=== PATIENT | female | born 1965 | race Caucasian/White ===

== ENCOUNTER → 2018-03-12 09:23 | Outpatient (CLI) | payer OTHER, SELFPAY ==
[2018-03-12 10:48] LABS: Cholesterol 212 mg/dL (140-199); Glucose 86 mg/dL (70-100); HDL Cholesterol 70 mg/dL (40-60); LDL Cholesterol Calculated 128 mg/dL (<100); Triglycerides 68 mg/dL (35-150)
[2018-03-12 12:39] LABS: Thyroid Stimulating Hormone 2.58 uIU/mL (0.47-4.68)
== END ==
PROVIDERS: PCP Family Medicine; Visit Provider Family Medicine
DX: E03.9 Hypothyroidism, unspecified (principal); Z13.1 Encounter for screening for diabetes mellitus; Z13.220 Encounter for screening for lipoid disorders
CPT/HCPCS: 36415; 80061; 82947; 84443

== ENCOUNTER → 2018-05-30 15:46 | Outpatient (CLI) | payer OTHER, SELFPAY ==
--- NOTE | 2018-05-30 15:47 | DI.MG.S_ITS ---
BILATERAL DIGITAL SCREENING MAMMOGRAM 3D/2D WITH CAD: 05/30/2018 CLINICAL: Routine screening. Comparison is made to exams dated: 07/18/2012 mammogram, 04/28/2010 mammogram, and 09/07/2007 mammogram - [facility] [place]. The tissue of both breasts is heterogeneously dense. This may lower the sensitivity of mammography. Current study was also evaluated with a Computer Aided Detection (CAD) system. There are a grouped calcifications in the left breast at 1 o'clock posterior depth. There also is a focal asymmetry in the left breast at 10 o'clock posterior depth. No other significant masses, calcifications, or other findings are seen in either breast. IMPRESSION: INCOMPLETE: NEEDS ADDITIONAL IMAGING EVALUATION The grouped calcifications in the left breast at 1 o'clock posterior depth are indeterminate. Spot magnification views are recommended. The focal asymmetry in the left breast at 10 o'clock posterior depth is indeterminate. Additional views with possible ultrasound are recommended. This exam was interpreted at Station ID: [id number]. NOTE: For mammograms, a report in lay terms will be sent to the patient. Approximately 15% of breast malignancies will not be visualized mammographically. In the management of a palpable breast mass, a negative mammogram must not discourage biopsy of a clinically suspicious lesion. Electronically Signed By: Alejandra brooke/:05/30/2018 16:47:58 letter sent: Additional Imaging Needed ACR BI-RADS Category 0: Incomplete 3340F
== END ==
PROVIDERS: PCP Family Medicine; Visit Provider Family Medicine
DX: Z12.31 Encounter for screening mammogram for malignant neoplasm of breast (principal)
CPT/HCPCS: 77063; 77067

== ENCOUNTER → 2018-06-14 14:36 | Outpatient (CLI) | payer OTHER, SELFPAY ==
--- NOTE | 2018-06-14 14:38 | DI.MG.S_ITS ---
UNILATERAL LEFT DIGITAL DIAGNOSTIC MAMMOGRAM 3D/2D WITH ADDITIONAL VIEWS: 06/14/2018 CLINICAL: Additional evaluation requested from prior study. Comparison is made to exams dated: 05/30/2018 mammogram - [facility], 07/18/2012 mammogram, and 04/28/2010 mammogram - [facility]. The tissue of left breast is heterogeneously dense. This may lower the sensitivity of mammography. There are a grouped calcifications in the left breast at 1 o'clock posterior depth. These are less prominent and their morphology is not well evaluated on the current study. There also is a 9 mm asymmetry with an indistinct and microlobulated margin in the left breast middle depth medial region seen on the craniocaudal view only. No other significant masses or calcifications are seen in the breast. IMPRESSION: INCOMPLETE: NEEDS ADDITIONAL IMAGING EVALUATION The grouped calcifications in the left breast at 1 o'clock posterior depth remain indeterminate. The 9 mm asymmetry in the left breast middle depth medial region seen on the craniocaudal view only is indeterminate. Ultrasound for the medial asymmetry is recommended and was subsequently performed. This exam was interpreted at Station ID: [id number]. NOTE: For mammograms, a report in lay terms will be sent to the patient. Approximately 15% of breast malignancies will not be visualized mammographically. In the management of a palpable breast mass, a negative mammogram must not discourage biopsy of a clinically suspicious lesion. Electronically Signed By: Marylin garcia/:06/14/2018 17:29:29 ACR BI-RADS Category 0: Incomplete 3340F
--- NOTE | 2018-06-14 14:38 | DI.US.S_ITS ---
LIMITED ULTRASOUND OF LEFT BREAST: 06/14/2018 CLINICAL: Patient returns today to evaluate a density in the left breast. Comparison is made to exams dated: 06/14/2018 mammogram, 05/30/2018 mammogram - [facility], 07/18/2012 mammogram, 04/28/2010 mammogram, and 09/07/2007 mammogram - [facility]. Color flow and real-time ultrasound of the left breast 7-11 o'clock region were performed. Cartwright scale images of the real-time examination were reviewed. There are multiple 3 mm round complicated cysts in the left breast superior medial quadrant anterior depth. Their correlation to the mammographic finding is doubtful. No sonographic correlate to the medial left breast finding on mammogram. IMPRESSION: PROBABLY BENIGN The complicated cysts in the left breast are probably benign and not likely to correspond to the mammographic area of interest. No sonographic correlate was found. A follow-up left mammogram and an ultrasound in 6 months is recommended to demonstrate stability of the asymmetry in the medial left breast, and the faint calcifications in the 1 o'clock position of the left breast. Findings and recommendations were conveyed to the patient. This exam was interpreted at Station ID: [id number]. Electronically Signed By: Marylin garcia/:06/14/2018 17:36:15 letter sent: Followup Recommended Ultrasound BI-RADS: 3 Probably benign
== END ==
PROVIDERS: PCP Family Medicine; Visit Provider Family Medicine
DX: R92.8 Other abnormal and inconclusive findings on diagnostic imaging of breast (principal); R92.1 Mammographic calcification found on diagnostic imaging of breast; N64.89 Other specified disorders of breast; N60.02 Solitary cyst of left breast
CPT/HCPCS: 76642; 77065; G0279

== ENCOUNTER → 2018-12-13 14:40 | Outpatient (CLI) | payer OTHER, SELFPAY ==
--- NOTE | 2018-12-13 14:41 | DI.MG.S_ITS ---
UNILATERAL LEFT DIGITAL DIAGNOSTIC MAMMOGRAM 3D/2D SHORT-TERM FOLLOW-UP: 12/13/2018 CLINICAL: Patient returns for a 6 month follow up of the left breast. Comparison is made to exams dated: 06/14/2018 mammogram, 05/30/2018 mammogram - [facility], and 07/18/2012 [place] [facility] [place] The tissue of left breast is heterogeneously dense. This may lower the sensitivity of mammography. Previously identified grouped calcifications in the left breast at 1 o'clock posterior depth seen on comparison mammograms of 05/30/18 and 06/14/18 remain stable. Previously identified focal asymmetry of the medial left breast (previously described as being at 10 o'clock posterior depth on comparison screening mammograms of 05/30/18 and within the left breast middle depth medial region on comparison diagnostic mammograms of 06/14/18) remains stable. IMPRESSION: INCOMPLETE: NEEDS ADDITIONAL IMAGING EVALUATION Previously identified grouped calcifications in the left breast at 1 o'clock posterior depth seen on comparison mammograms of 05/30/18 and 06/14/18 remain stable. A targeted ultrasound is recommended for further evaluation, and will be performed immediately following this exam. Previously identified focal asymmetry of the medial left breast (previously described as being at 10 o'clock posterior depth on comparison screening mammograms of 05/30/18 and within the left breast middle depth medial region on comparison diagnostic mammograms of 06/14/18) remains stable. A targeted ultrasound is recommended for further evaluation, and will be performed immediately following this exam. This exam was interpreted at Station ID: [id number]. NOTE: For mammograms, a report in lay terms will be sent to the patient. Approximately 15% of breast malignancies will not be visualized mammographically. In the management of a palpable breast mass, a negative mammogram must not discourage biopsy of a clinically suspicious lesion. Electronically Signed By: Daniel Hoffmann M.D. ecl/:12/13/2018 15:21:53 ACR BI-RADS Category 0: Incomplete 3340F
--- NOTE | 2018-12-13 14:41 | DI.US.S_ITS ---
LIMITED ULTRASOUND OF LEFT BREAST: 12/13/2018 CLINICAL: 6 month follow-up of the left breast. Comparison is made to exams dated: 12/13/2018 mammogram, 06/14/2018 ultrasound, 06/14/2018 mammogram, 05/30/2018 mammogram - [facility], 07/18/2012 mammogram, and 04/28/2010 mammogram - [facility] [place]. Color flow and real-time ultrasound of the left breast 8-10 o'clock region were performed. Cartwright scale images of the real-time examination were reviewed. There is a 0.3 x 0.3 x 0.3 cm oval circumscribed hypoechoic cyst with low level internal echogenic debris, posterior acoustic enhancement, and no vascularity on Doppler ultrasound in the left breast at 9:00 position 3 cm from the nipple. This previously measured 0.3 x 0.3 x 0.3 cm on 06/14/18. There is a closely adjacent 0.3 x 0.3 x 0.4 cm oval circumscribed hypoechoic cyst with low level internal echogenic debris, posterior acoustic enhancement, and no vascularity on Doppler ultrasound in the left breast 9:00 position 3 cm from nipple. This previously measured 0.4 x 0.4 x 0.4 cm on 06/14/18. No other masses or abnormalities are identified within the medial left breast from 8:00 through 10:00 positions. IMPRESSION: PROBABLY BENIGN Stable 0.3-0.4 cm complicated cysts in the medial left breast at 9:00 position 3 cm from the nipple when compared with prior exam of 06/14/18. These are again unlikely to correlate with the asymmetry seen on comparison mammography. A follow-up left mammogram and possible left ultrasound in 6 months is recommended to demonstrate stability; patient will also be due for right mammography at that time. The patient is advised to monitor her breasts and to return sooner for re-evaluation should she feel anything grow or change. This exam was interpreted at Station ID: [id number]. Electronically Signed By: Daniel Hoffmann M.D. ecl/:12/13/2018 16:06:30 letter sent: Followup Recommended Ultrasound BI-RADS: 3 Probably benign
== END ==
PROVIDERS: PCP Family Medicine; Visit Provider Family Medicine
DX: R92.8 Other abnormal and inconclusive findings on diagnostic imaging of breast (principal); R92.1 Mammographic calcification found on diagnostic imaging of breast; N64.89 Other specified disorders of breast; N60.02 Solitary cyst of left breast
CPT/HCPCS: 76642; 77065; G0279

== ENCOUNTER → 2019-11-26 12:31 | Outpatient (CLI) | payer OTHER, SELFPAY ==
--- NOTE | 2019-11-26 12:32 | DI.MG.S_ITS ---
BILATERAL DIGITAL DIAGNOSTIC MAMMOGRAM 3D/2D: 11/26/2019 CLINICAL: Late short term follow up, due bilaterally. Comparison is made to exams dated: 12/13/2018 mammogram, 06/14/2018 mammogram, 05/30/2018 mammogram - [facility], and [place] [facility] [place] [place] The tissue of both breasts is heterogeneously dense. This may lower the sensitivity of mammography. There is a stable focal asymmetry in the left breast at 10 o'clock posterior depth. There also are stable grouped calcifications in the left breast at 3 o'clock posterior depth. No other significant masses, calcifications, or other findings are seen in either breast. IMPRESSION: INCOMPLETE: NEEDS ADDITIONAL IMAGING EVALUATION The stable focal asymmetry in the left breast at 10 o'clock posterior depth is indeterminate. A targeted ultrasound of the left breast is recommended and will be performed immediately following this exam. The stable grouped calcifications in the left breast at 3 o'clock posterior depth are probably benign. 6 month follow up recommended. This exam was interpreted at Station ID: [id number]. NOTE: For mammograms, a report in lay terms will be sent to the patient. Approximately 15% of breast malignancies will not be visualized mammographically. In the management of a palpable breast mass, a negative mammogram must not discourage biopsy of a clinically suspicious lesion. Electronically Signed By: Alejandra Petty M.D. lk/:11/26/2019 14:19:56 letter sent: Additional Imaging Needed ACR BI-RADS Category 0: Incomplete 3340F
--- NOTE | 2019-11-26 12:32 | DI.US.S_ITS ---
ULTRASOUND OF LEFT BREAST: 11/26/2019 CLINICAL: 6 month follow-up of cysts. Comparison is made to exams dated: 11/26/2019 mammogram, 12/13/2018 ultrasound, 12/13/2018 mammogram, 06/14/2018 ultrasound, 06/14/2018 mammogram, and 05/30/2018 mammogram - [facility]. Ultrasound of the left breast was performed on the area of interest. Cartwright scale images of the real-time examination were reviewed. There is a stable cluster of round complicated cysts in the left breast at 9 o'clock anterior depth. This cluster of round complicated cysts is hypoechoic. IMPRESSION: PROBABLY BENIGN The stable cluster of round complicated cysts in the left breast is consistent with complicated cysts and is probably benign. A follow-up mammogram and an ultrasound in 6 months is recommended to demonstrate stability of these cysts and the stable cluster of calcifications. This exam was interpreted at Station ID: [id number]. Electronically Signed By: Alejandra brooke/:11/26/2019 14:40:46 letter sent: Followup Recommended Ultrasound BI-RADS: 3 Probably benign
== END ==
PROVIDERS: PCP Family Medicine; Referring Provider Family Medicine; Visit Provider Family Medicine
DX: R92.8 Other abnormal and inconclusive findings on diagnostic imaging of breast (principal); R92.1 Mammographic calcification found on diagnostic imaging of breast; N60.01 Solitary cyst of right breast
CPT/HCPCS: 76642; 77066; G0279

== ENCOUNTER → 2020-03-18 08:47 | Outpatient (CLI) | payer OTHER, SELFPAY ==
[2020-03-18 09:33] LABS: Add Manual Diff / Slide Review NO; Basophils Absolute Auto 0 /uL (0-100); Eosinophils Absolute Auto 100 /uL (0-450); Eosinophils Percent Auto 1.4 % (2-4); Hematocrit 38.2 % (36-46); Hemoglobin 12.8 g/dL (12.0-16.0); Lymphocytes Absolute Auto 1300 /uL (1100-4500); Lymphocytes Percent Auto 35.2 % (25-40); Mean Corpuscular HGB Conc 33.6 % (30-36); Mean Corpuscular Hemoglobin 31.1 PG (26-34); Mean Corpuscular Volume 92.4 fL (80-100); Monocytes Absolute Auto 300 /uL (0-900); Monocytes Percent Auto 8.1 % (3-14); Neutrophils Absolute Auto 2000 /uL (1500-7000); Neutrophils Percent Auto 54.3 % (50-75); Platelet Count 225 X10^3/uL (150-400); Red Blood Cell Count 4.13 X10^6/uL (4.0-5.2); Red Cell Distribution Width 12.9 % (11.6-14.8); White Blood Cell Count 3.7 X10^3/uL (4.5-11.0)
[2020-03-18 09:47] LABS: Alanine Aminotransferase 26 IU/L (<35); Albumin 4.4 g/dL (3.5-5.0); Albumin Globulin Ratio 1.4 (1.0-2.8); Alkaline Phosphatase 75 U/L (38-126); Aspartate Aminotransferase 35 IU/L (14-36); BUN Creatinine Ratio 19.2 (6-22); Bilirubin Total 0.6 mg/dL (0.2-1.3); Blood Urea Nitrogen 15 mg/dL (7-17); Calcium 9.4 mg/dL (8.4-10.2); Carbon Dioxide 31 mmol/L (22-32); Chloride 106 mmol/L (98-107); Cholesterol 224 mg/dL (140-199); Estimated Glomerular Filt Rate > 60.0 mL/min (>60); Globulin 3.1 g/dL (1.7-4.1); Glucose 91 mg/dL (70-100); HDL Cholesterol 67 mg/dL (40-60); HEMOLYSIS < 15 (0-50); LDL Cholesterol Calculated 148 mg/dL (<100); Potassium 4.5 mmol/L (3.4-5.1); Sodium 139 mmol/L (137-145); Total Protein 7.5 g/dL (6.3-8.2); Triglycerides 44 mg/dL (35-150)
[2020-03-18 10:27] LABS: Thyroid Stimulating Hormone 2.83 uIU/mL (0.47-4.68)
== END ==
PROVIDERS: PCP Family Medicine; Referring Provider Family Medicine; Visit Provider Family Medicine
DX: E03.9 Hypothyroidism, unspecified (principal)
CPT/HCPCS: 36415; 80053; 80061; 84443; 85025

== ENCOUNTER → 2020-03-27 12:08 | Outpatient (CLI) | payer OTHER, SELFPAY ==
--- NOTE | 2020-03-27 12:09 | DI.RAD.S_ITS ---
PROCEDURE: XR ANKLE LT MIN 3V INDICATIONS: bilateral ankle pain TECHNIQUE: 3 views of the ankle were acquired. COMPARISON: None. FINDINGS: Bones: No fractures or dislocations. Ankle mortise is normally aligned. No suspicious bony lesions. Small plantar calcaneal bone spur is seen. Soft tissues: No tibiotalar joint effusion. Achilles tendon appears normal. No calcifications in the Achilles tendon. IMPRESSION: 1. No acute abnormality of the left ankle. 2. Small calcaneal plantar bone spur. Dictated by: Angel Mullins M.D. on 03/27/2020 at 12:47 Approved by: Angel Mullins M.D. on 03/27/2020 at 12:50
--- NOTE | 2020-03-27 12:09 | DI.RAD.S_ITS ---
PROCEDURE: XR ANKLE RT MIN 3V INDICATIONS: bilateral ankle pain TECHNIQUE: 3 views of the ankle were acquired. COMPARISON: None. FINDINGS: Bones: No fractures or dislocations. Ankle mortise is normally aligned. No suspicious bony lesions. Soft tissues: No tibiotalar joint effusion. Achilles tendon appears normal. IMPRESSION: No acute abnormality of the right ankle. Dictated by: Angel Mullins M.D. on 03/27/2020 at 12:50 Approved by: Angel Mullins M.D. on 03/27/2020 at 12:51
== END ==
PROVIDERS: PCP Family Medicine; Referring Provider Family Medicine; Visit Provider Family Medicine
DX: M25.571 Pain in right ankle and joints of right foot (principal); M25.572 Pain in left ankle and joints of left foot; M77.32 Calcaneal spur, left foot
CPT/HCPCS: 73610

== ENCOUNTER → 2020-04-02 14:10 | Outpatient (CLI) | payer OTHER, SELFPAY ==
[2020-04-03 14:45] LABS: Fecal Immunochemical Test Negative (Negative)
== END ==
PROVIDERS: PCP Family Medicine; Referring Provider Family Medicine; Visit Provider Family Medicine
DX: M25.571 Pain in right ankle and joints of right foot (principal); M25.572 Pain in left ankle and joints of left foot; Z12.11 Encounter for screening for malignant neoplasm of colon
CPT/HCPCS: 82274

== ENCOUNTER → 2020-04-29 12:46 | Outpatient (CLI) | payer OTHER, SELFPAY ==
--- NOTE | 2020-04-29 12:47 | DI.MG.S_ITS ---
UNILATERAL LEFT DIGITAL DIAGNOSTIC MAMMOGRAM 3D/2D: 04/29/2020 CLINICAL: Short folow up. Comparison is made to exams dated: 11/26/2019 mammogram, 12/13/2018 mammogram, 06/14/2018 mammogram, 05/30/2018 mammogram - [facility], and 07/18/2012 mammogram - [facility]. The tissue of left breast is heterogeneously dense. This may lower the sensitivity of mammography. Redemonstration of previously described focal asymmetry in the left breast at 10 o'clock posterior depth. This is less prominent and decreased in size. There also are grouped calcifications in the left breast at 4 o'clock posterior depth. These are less prominent. No other significant masses or calcifications are seen in the breast. IMPRESSION: INCOMPLETE: NEEDS ADDITIONAL IMAGING EVALUATION The focal asymmetry in the left breast at 10 o'clock posterior depth is indeterminate. A targeted ultrasound of the left breast is recommended and will be performed immediately following this exam. The grouped calcifications in the left breast at 4 o'clock posterior depth are probably benign. This exam was interpreted at Station ID: [id number]. NOTE: For mammograms, a report in lay terms will be sent to the patient. Approximately 15% of breast malignancies will not be visualized mammographically. In the management of a palpable breast mass, a negative mammogram must not discourage biopsy of a clinically suspicious lesion. Electronically Signed By: Liu Bennett M.D. aty/:04/29/2020 13:29:53 ACR BI-RADS Category 0: Incomplete 3340F
--- NOTE | 2020-04-29 12:47 | DI.US.S_ITS ---
ULTRASOUND OF LEFT BREAST: 04/29/2020 CLINICAL: Patient returns today to evaluate focal asymmetries in the left breast. Comparison is made to exams dated: 04/29/2020 mammogram, 11/26/2019 ultrasound, 11/26/2019 mammogram, 12/13/2018 ultrasound, 12/13/2018 mammogram, and 06/14/2018 [facility]. Color flow and real-time ultrasound of the left breast were performed. Cartwright scale images of the real-time examination were reviewed. There is a stable cluster of round complicated cysts in the left breast at 9 o'clock anterior depth. This cluster of round complicated cysts is hypoechoic. One measures up to 0.3 cm in size and the second measures up to 0.4 cm in size. IMPRESSION: BENIGN There is no sonographic evidence of malignancy. The stable cluster of round complicated cysts in the left breast have remained stable for approximately two years and are consistent with a benign process. Return to annual mammogram screening schedule is recommended which is due in November 2020. Findings and recommendations were conveyed to the patient during today's evaluation. This exam was interpreted at Station ID: [id number]. Electronically Signed By: Liu Bennett M.D. aty/:04/29/2020 14:29:01 letter sent: Normal Exam Ultrasound BI-RADS: 2 Benign
== END ==
PROVIDERS: PCP Family Medicine; Referring Provider Family Medicine; Visit Provider Family Medicine
DX: R92.8 Other abnormal and inconclusive findings on diagnostic imaging of breast (principal); R92.1 Mammographic calcification found on diagnostic imaging of breast
CPT/HCPCS: 76642; 77065; G0279

== ENCOUNTER 2020-09-08 09:45 | Outpatient (RCR) | payer OTHER, SELFPAY ==
--- NOTE | 2020-05-08 15:50 | PT.OIE ---
Current Diagnoses Pain in unspecified ankle and joints of unspecified foot (05/08/20) Past Medical History (Last Updated 04/17/18 @ 21:09 by Mely Byers) Foot pain (~2016) Hypothyroidism (~1995) Past Surgical History (Last Updated 04/17/18 @ 21:09 by Mely Byers) Anesthesia Ovarian cyst (~1992) Visit Care Team Role Provider Type Ellen Webb MD Attending Provider Physician Primary Care Provider Referring Provider Specialty: [facility] Address: [address] [place] [address], [facility] Email: [email or web address] Physical Therapy Initial Evaluation PT-OP-A Visit Information Start: 05/08/20 12:06 Freq: Status: Active Protocol: Document 05/08/20 12:06 (Rec: 05/08/20 12:34 [email or web address]) Out-Patient Physical Therapy Visit Information Visit Information Visit Type Initial Evaluation Visit Start Time 11:15 Visit Stop Time 12:00 Total Visit Minutes 45 Visit Number 02/24 Number of FLORAL CLERK Visits 0 Evaluation Information Evaluation Date 05/08/20 Precautions Precautions hypothyroidism PT-OP-B Current Condition Start: 05/08/20 12:06 Freq: Status: Active Protocol: Document 05/08/20 12:06 (Rec: 05/08/20 12:34 [email or web address]) Current Condition History of Current Condition Onset Date 4 years ago Current Complaints B heel pain, ankle stiffness History of Current Condition Senia is a 54 year old woman with bialteral heel pain 6/10 and ankle stiffness. For the past 4 years, she has had bilateral ankle pain that has been getting worse. She notices the pain the most when she wakes up in the morning, after staying in one position for too long and walking down hill; better with stretches but only with temporary reliefs. Shes describes the pain as shooting from the Achilles tendon. Pain has waken her up every night. She denies lower extremity weakness, numbness. She is a very active woman and works out almost daily but notices she can only do 60% of what she used to do. Her current routine inlcudes : 3 miles walk/day and 30 mins MELI workout 4 times a week but she cannot hike at this point d/t significant heel pain. Prior Treatments and Tests X-ray on B ankles R= No fractures or dislocations. Ankle mortise is normally aligned. No suspicious bony lesions. L= L No fractures or dislocations. Ankle mortise is normally aligned. No suspicious bony lesions. Small plantar calcaneal bone spur is seen. Treatment Goals Patient/Caregiver Goals 1. to be able to walk without heel pain 2. to improve her ankle stiffness. PT-OP-C Subjective Start: 05/08/20 12:06 Freq: Status: Active Protocol: Document 05/08/20 12:06 HH (Rec: 05/08/20 12:34 [email or web address]) Patient Questionnaires Foot & Ankle Ability Measure- ADL and Sports FAAM-ADL Score 91 FAAM-Sport Score 27 FAAM-Sport Impairment 1 to 19% Impaired (Score 25-31 ) Lower Extremity Functional Scale LEFS Score 77 LEFS Impairment 1 to 19% Impaired (Score 63-79 ) PT-OP-D Balance Start: 05/08/20 12:06 Freq: Status: Active Protocol: Document 05/08/20 12:06 HH (Rec: 05/08/20 12:34 [email or web address]) Balance Tests Single Limb Standing Single Limb- Right >60 Single Limb- Left >60 PT-OP-F Manual Assessment Start: 05/08/20 12:06 Freq: Status: Active Protocol: Document 05/08/20 12:06 HH (Rec: 05/08/20 12:34 [email or web address]) Manual Assessments Soft Tissue Assessment Soft Tissue Mobility Assessment significant tenderness and stiftness to pressure at B achilles tendons significant calluses noted at B heels Joint Mobility Assessment Joint Mobility Assessment decreased mid foot pronation mobility and calcaneal inversion and eversion mobility PT-OP-G Mobility & Gait Start: 05/08/20 12:06 Freq: Status: Active Protocol: Document 05/08/20 12:06 HH (Rec: 05/08/20 12:34 [email or web address]) OP Gait Assessment Comments Gait Comments pt walked with a hard heel strike bilaterally during initial contact she also has dec push off through forefoot at preswing. PT-OP-J Posture/Palpation/Skin Start: 05/08/20 12:06 Freq: Status: Active Protocol: Document 05/08/20 12:06 HH (Rec: 05/08/20 12:34 [email or web address]) Posture Evaluation Position Standing Evaluation View Anterior Ankle/Foot Posture (L) Plantarflexed,(R) Plantarflexed Foot Arch (L) High Arch,(R) High Arch Toe Posture (L) Clawed Toes,(R) Clawed Toes PT-OP-K Range of Motion Start: 05/08/20 12:06 Freq: Status: Active Protocol: Document 05/08/20 12:06 (Rec: 05/08/20 12:34 [email or web address]) Ankle and Foot Goniometric Range of Motion Ankle and Foot Right Active Ankle/Foot ROM WFL No Testing Position Supine Dorsiflexion with Knee Flexed 8 Dorsiflexion with Knee Extended 5 Plantarflexion 72 Inversion 34 Eversion 22 Left Active Ankle/Foot ROM WFL No Testing Position Supine Dorsiflexion with Knee Flexed 12 Dorsiflexion with Knee Extended 3 Plantarflexion 62 Inversion 30 Eversion 24 Ankle and Foot ROM Limitations ROM Limitations Soft Tissue Tightness Toe Range of Motion Toe Right Great Toe Toe ROM WFL No MTP Flexion Active (degrees) 40 MTP Extension Active (degrees) 20 Left Great Toe Toe ROM WFL No MTP Flexion Active (degrees) 45 MTP Extension Active (degrees) 18 Toes ROM Limitations Toe ROM Limitations Soft Tissue Tightness PT-OP-M Strength Start: 05/08/20 12:06 Freq: Status: Active Protocol: Document 05/08/20 12:06 (Rec: 05/08/20 12:34 [email or web address]) Ankle/Foot Strength Ankle and Foot Manual Muscle Testing Right Dorsiflexion (L4) 5 Normal Plantarflexion (S1) 5 Normal Inversion 5 Normal Eversion (S1) 5 Normal Comments single calf raise = 33 times without pain Left Dorsiflexion (L4) 5 Normal Plantarflexion (S1) 5 Normal Inversion 5 Normal Eversion (S1) 5 Normal Comments single calf raise = 33 times without pain PT-OP-T Assessment and Plan Start: 05/08/20 12:06 Freq: Status: Active Protocol: Document 05/08/20 12:06 (Rec: 05/08/20 12:34 [email or web address]) Physical Therapy Assessment Rehab Potential Rehabilitation Potential Excellent Evaluation Complexity Number of Personal Factors/Comorbidities 1-2 Number of Body Systems Impaired 1-2 Clinical Presentation at Evaluation Stable Impairments Impairments Activity Tolerance,Functional Activities,Functional Mobility ,Gait,Pain,Posture,ROM,Soft Tissue Mobility Goals hiking Impairment unable to hike d/t heel pain Usp Goal (LTG) pt will be able to hike again without increase in heel pain LTG Duration 8 weeks gait Impairment pt has poor gait mechanics Manager Automotive Goal (LTG) pt will be able to walk with increased forefoot push off and decreased heel strike to improve her stride length and gait mechanics. ROM Impairment pt has very lmited ankle and toe mobility Short Term Goal (STG) pt will show improved DF by 5 degrees and big toe extension by 10 degrees to improve her gait mechanics STG Duration 4 weeks Manager Automotive Goal (LTG) pt will show improved DF by 10 degrees and big toe extension by 20 degrees to improve her gait mechanics LTG Duration 8 weeks heel pain Impairment B heel pain =6/10 Short Term Goal (STG) Pt will have no more than 4/10 heel pain in the morning and after sitting for a long period of time. STG Duration 4 weeks Manager Automotive Goal (LTG) Pt will have no more than 2/10 heel pain in the morning and after sitting for a long period of time. LTG Duration 8 weeks Assessment Summary Assessment Senia is a 54 yo healthy and active female here for her chronic B heel pain and ankle stiffness. Upon assessment, pt presents with WFL single leg balance and ankle strength. However, She presents B high arch foot with very limited ankle DF and big toe extension whose gait has excessive heel strike and decreased forefoot pushed off during preswing. This excessively increase the mechanical loading at her achilles tendon. I believe pt will benefit from skilled therapy to improve her overall ankle and toes mobility which reduce mechanical stress at both achilles tendon by correcting her gait mechanics. Physical Therapy Plan Frequency and Duration Frequency of Treatment 2x/x2wk then 1x 6 wk Duration of Treatment 8 weeks Plan of Care Start Date 05/08/20 Plan of Care End Date 07/07/20 Therapeutic Interventions Therapeutic Interventions Balance Training,Gait Training ,Home Exercise Program,Joint Mobilizations,Manual Therapy, Neuromuscular Re-education, Orthotic/Prosthetic Management ,Patient/Caregiver Education, Self-Care/Home Management,Soft Tissue Mobilization,Taping, Therapeutic Activities, Therapeutic Exercises Modalities Cold Pack/Ice Massage,Electric Stimulation,Hot Packs, Infrared Therapy,Ultrasound Next Visit Focus/Plan Next Note Type Treatment Note Next Visit Plan STM on achilles calf stretch toe stretch towel scrunch foot pronation gait training toe push off
--- NOTE | 2020-05-08 15:50 | PT.OPPOC ---
Physical, Occupational & Speech Therapy At [facility] Current Diagnoses Pain in unspecified ankle and joints of unspecified foot (05/08/20) Visit Care Team Role Provider Type Ellen Webb MD Attending Provider Physician Primary Care Provider Referring Provider Specialty: Family Practice Address: [address] [place] [address], [place], [address] Email: [email or web address] Plan Of Care PT-OP-T Assessment and Plan Start: 05/08/20 12:06 Freq: Status: Active Protocol: Document 05/08/20 12:06 (Rec: 05/08/20 12:34 [email or web address]) Physical Therapy Assessment Rehab Potential Rehabilitation Potential Excellent Evaluation Complexity Number of Personal Factors/Comorbidities 1-2 Number of Body Systems Impaired 1-2 Clinical Presentation at Evaluation Stable Impairments Impairments Activity Tolerance,Functional Activities,Functional Mobility ,Gait,Pain,Posture,ROM,Soft Tissue Mobility Goals hiking Impairment unable to hike d/t heel pain Electrical Troubleshooter Goal (LTG) pt will be able to hike again without increase in heel pain LTG Duration 8 weeks gait Impairment pt has poor gait mechanics [facility] Goal (LTG) pt will be able to walk with increased forefoot push off and decreased heel strike to improve her stride length and gait mechanics. ROM Impairment pt has very lmited ankle and toe mobility Short Term Goal (STG) pt will show improved DF by 5 degrees and big toe extension by 10 degrees to improve her gait mechanics STG Duration 4 weeks Electrical Troubleshooter Goal (LTG) pt will show improved DF by 10 degrees and big toe extension by 20 degrees to improve her gait mechanics LTG Duration 8 weeks heel pain Impairment B heel pain =6/10 Short Term Goal (STG) Pt will have no more than 4/10 heel pain in the morning and after sitting for a long period of time. STG Duration 4 weeks Electrical Troubleshooter Goal (LTG) Pt will have no more than 2/10 heel pain in the morning and after sitting for a long period of time. LTG Duration 8 weeks Assessment Summary Assessment Senia is a 54 yo healthy and active female here for her chronic B heel pain and ankle stiffness. Upon assessment, pt presents with WFL single leg balance and ankle strength. However, She presents B high arch foot with very limited ankle DF and big toe extension whose gait has excessive heel strike and decreased forefoot pushed off during preswing. This excessively increase the mechanical loading at her achilles tendon. I believe pt will benefit from skilled therapy to improve her overall ankle and toes mobility which reduce mechanical stress at both achilles tendon by correcting her gait mechanics. Physical Therapy Plan Frequency and Duration Frequency of Treatment 2x/x2wk then 1x 6 wk Duration of Treatment 8 weeks Plan of Care Start Date 05/08/20 Plan of Care End Date 07/07/20 Therapeutic Interventions Therapeutic Interventions Balance Training,Gait Training ,Home Exercise Program,Joint Mobilizations,Manual Therapy, Neuromuscular Re-education, Orthotic/Prosthetic Management ,Patient/Caregiver Education, Self-Care/Home Management,Soft Tissue Mobilization,Taping, Therapeutic Activities, Therapeutic Exercises Modalities Cold Pack/Ice Massage,Electric Stimulation,Hot Packs, Infrared Therapy,Ultrasound Next Visit Focus/Plan Next Note Type Treatment Note Next Visit Plan STM on achilles calf stretch toe stretch towel scrunch foot pronation gait training toe push off Plan of Care Dates Plan of Care Start Date 05/08/20 Plan of Care End Date 07/07/20 Electronically Signed by: Kristian Banuelos PT 05/08/20 [id number] Please Sign and Return: I have reviewed this Plan of Care and certify that the skilled therapy services above are required to meet the patient?s needs. Physician Signature Date Printed Name and Credentials Clinical Instructor Signature Printed Name and Credentials
--- NOTE | 2020-05-11 09:49 | PT.OTN ---
Current Diagnoses Pain in unspecified ankle and joints of unspecified foot (05/11/20) Physical Therapy Treatment Note PT-OP-A Visit Information Start: 05/08/20 12:06 Freq: Status: Active Protocol: Document 05/11/20 08:14 HH (Rec: 05/11/20 09:49 [id number]) Out-Patient Physical Therapy Visit Information Visit Information Visit Type Treatment Note Visit Start Time 09:00 Visit Stop Time 09:44 Total Visit Minutes 44 Visit Number 2 Number of GRAILS WEB APPLICATION DEVELOPER Visits 0 PT-OP-B Current Condition Start: 05/08/20 12:06 Freq: Status: Active Protocol: Document 05/08/20 12:06 HH (Rec: 05/08/20 12:34 HH [email or web address]) Current Condition History of Current Condition Onset Date 4 years ago Current Complaints B heel pain, ankle stiffness History of Current Condition Senia is a 54 year old woman with bialteral heel pain 6/10 and ankle stiffness. For the past 4 years, she has had bilateral ankle pain that has been getting worse. She notices the pain the most when she wakes up in the morning, after staying in one position for too long and walking down hill; better with stretches but only with temporary reliefs. Shes describes the pain as shooting from the Achilles tendon. Pain has waken her up every night. She denies lower extremity weakness, numbness. She is a very active woman and works out almost daily but notices she can only do 60% of what she used to do. Her current routine inlcudes : 3 miles walk/day and 30 mins MELI workout 4 times a week but she cannot hike at this point d/t significant heel pain. Prior Treatments and Tests X-ray on B ankles R= No fractures or dislocations. Ankle mortise is normally aligned. No suspicious bony lesions. L= L No fractures or dislocations. Ankle mortise is normally aligned. No suspicious bony lesions. Small plantar calcaneal bone spur is seen. Treatment Goals Patient/Caregiver Goals 1. to be able to walk without heel pain 2. to improve her ankle stiffness. PT-OP-C Subjective Start: 05/08/20 12:06 Freq: Status: Active Protocol: Document 05/11/20 08:14 HH (Rec: 05/11/20 09:49 [id number]) OP-PT Subjective Patient Comments Patient Comments Im excited for the PT. Patient Reported Progress Same PT-OP-D Balance Start: 05/08/20 12:06 Freq: Status: Active Protocol: Document 05/08/20 12:06 (Rec: 05/08/20 12:34 [email or web address]) Balance Tests Single Limb Standing Single Limb- Right >60 Single Limb- Left >60 PT-OP-F Manual Assessment Start: 05/08/20 12:06 Freq: Status: Active Protocol: Document 05/08/20 12:06 HH (Rec: 05/08/20 12:34 [email or web address]) Manual Assessments Soft Tissue Assessment Soft Tissue Mobility Assessment significant tenderness and stiftness to pressure at B achilles tendons significant calluses noted at B heels Joint Mobility Assessment Joint Mobility Assessment decreased mid foot pronation mobility and calcaneal inversion and eversion mobility PT-OP-G Mobility & Gait Start: 05/08/20 12:06 Freq: Status: Active Protocol: Document 05/08/20 12:06 (Rec: 05/08/20 12:34 [email or web address]) OP Gait Assessment Comments Gait Comments pt walked with a hard heel strike bilaterally during initial contact she also has dec push off through forefoot at preswing. PT-OP-J Posture/Palpation/Skin Start: 05/08/20 12:06 Freq: Status: Active Protocol: Document 05/08/20 12:06 HH (Rec: 05/08/20 12:34 [email or web address]) Posture Evaluation Position Standing Evaluation View Anterior Ankle/Foot Posture (L) Plantarflexed,(R) Plantarflexed Foot Arch (L) High Arch,(R) High Arch Toe Posture (L) Clawed Toes,(R) Clawed Toes PT-OP-K Range of Motion Start: 05/08/20 12:06 Freq: Status: Active Protocol: Document 05/08/20 12:06 HH (Rec: 05/08/20 12:34 [email or web address]) Ankle and Foot Goniometric Range of Motion Ankle and Foot Right Active Ankle/Foot ROM WFL No Testing Position Supine Dorsiflexion with Knee Flexed 8 Dorsiflexion with Knee Extended 5 Plantarflexion 72 Inversion 34 Eversion 22 Left Active Ankle/Foot ROM WFL No Testing Position Supine Dorsiflexion with Knee Flexed 12 Dorsiflexion with Knee Extended 3 Plantarflexion 62 Inversion 30 Eversion 24 Ankle and Foot ROM Limitations ROM Limitations Soft Tissue Tightness Toe Range of Motion Toe Right Great Toe Toe ROM WFL No MTP Flexion Active (degrees) 40 MTP Extension Active (degrees) 20 Left Great Toe Toe ROM WFL No MTP Flexion Active (degrees) 45 MTP Extension Active (degrees) 18 Toes ROM Limitations Toe ROM Limitations Soft Tissue Tightness PT-OP-M Strength Start: 05/08/20 12:06 Freq: Status: Active Protocol: Document 05/08/20 12:06 HH (Rec: 05/08/20 12:34 [email or web address]) Ankle/Foot Strength Ankle and Foot Manual Muscle Testing Right Dorsiflexion (L4) 5 Normal Plantarflexion (S1) 5 Normal Inversion 5 Normal Eversion (S1) 5 Normal Comments single calf raise = 33 times without pain Left Dorsiflexion (L4) 5 Normal Plantarflexion (S1) 5 Normal Inversion 5 Normal Eversion (S1) 5 Normal Comments single calf raise = 33 times without pain PT-OP-Q Treatments Start: 05/08/20 12:06 Freq: Status: Active Protocol: Document 05/11/20 08:14 HH (Rec: 05/11/20 09:49 [email or web address]) Therapeutic Exercises Sitting Exercises rolling pin Side bilateral Equipment Used rolling pin Comments self massage for HEP Standing Exercises weight shifting Standing Exercise Name lunge position Side bilateral Comments cues on foot pronation and supination, for HEP calf stretches Standing Exercise Name gastro and soleus Side bilateral Equipment Used on stairs MTP extension Side bilateral Manual Therapy Treatment Soft Tissue Mobilization gastro Mobilization Type Sustained Pressure,Trigger Point Release Intensity/Depth Moderate Body Position Prone achilles tendon Mobilization Type Sustained Pressure,Trigger Point Release Intensity/Depth Moderate Body Position Sitting Joint Mobilizations B foot Grade III Body Position Supine Comments mid foot pronation calcaneal pronation PT-OP-T Assessment and Plan Start: 05/08/20 12:06 Freq: Status: Active Protocol: Document 05/11/20 08:14 HH (Rec: 05/11/20 09:49 [email or web address]) Physical Therapy Assessment Goals hiking Impairment unable to hike d/t heel pain Truss Puller Helper Goal (LTG) pt will be able to hike again without increase in heel pain LTG Duration 8 weeks gait Impairment pt has poor gait mechanics Truss Puller Helper Goal (LTG) pt will be able to walk with increased forefoot push off and decreased heel strike to improve her stride length and gait mechanics. ROM Impairment pt has very lmited ankle and toe mobility Short Term Goal (STG) pt will show improved DF by 5 degrees and big toe extension by 10 degrees to improve her gait mechanics STG Duration 4 weeks [facility] Goal (LTG) pt will show improved DF by 10 degrees and big toe extension by 20 degrees to improve her gait mechanics LTG Duration 8 weeks heel pain Impairment B heel pain =6/10 Short Term Goal (STG) Pt will have no more than 4/10 heel pain in the morning and after sitting for a long period of time. STG Duration 4 weeks [facility] Goal (LTG) Pt will have no more than 2/10 heel pain in the morning and after sitting for a long period of time. LTG Duration 8 weeks Assessment Summary Assessment Pt elenita session well with focus on calf, achilles stretches, MTP extension stretch and manual therapy. Pt has difficulty pronating his feet during mid stance. Physical Therapy Plan Frequency and Duration Frequency of Treatment 2x/x2wk then 1x 6 wk Duration of Treatment 8 weeks Plan of Care Start Date 05/08/20 Plan of Care End Date 07/07/20 Next Visit Focus/Plan Next Note Type Treatment Note Next Visit Plan STM on achilles calf stretch toe stretch towel scrunch foot pronation gait training toe push off
--- NOTE | 2020-05-25 09:04 | PT.OTN ---
Current Diagnoses Pain in unspecified ankle and joints of unspecified foot (05/25/20) Physical Therapy Treatment Note PT-OP-A Visit Information Start: 05/08/20 12:06 Freq: Status: Active Protocol: Document 05/25/20 08:15 HH (Rec: 05/25/20 09:04 [id number]) Out-Patient Physical Therapy Visit Information Visit Information Visit Type Treatment Note Visit Start Time 08:18 Visit Stop Time 09:00 Total Visit Minutes 42 Visit Number 3 Number of LAUNDRY ROUTE DRIVER Visits 0 PT-OP-B Current Condition Start: 05/08/20 12:06 Freq: Status: Active Protocol: Document 05/08/20 12:06 HH (Rec: 05/08/20 12:34 HH [email or web address]) Current Condition History of Current Condition Onset Date 4 years ago Current Complaints B heel pain, ankle stiffness History of Current Condition Senia is a 54 year old woman with bialteral heel pain 6/10 and ankle stiffness. For the past 4 years, she has had bilateral ankle pain that has been getting worse. She notices the pain the most when she wakes up in the morning, after staying in one position for too long and walking down hill; better with stretches but only with temporary reliefs. Shes describes the pain as shooting from the Achilles tendon. Pain has waken her up every night. She denies lower extremity weakness, numbness. She is a very active woman and works out almost daily but notices she can only do 60% of what she used to do. Her current routine inlcudes : 3 miles walk/day and 30 mins MELI workout 4 times a week but she cannot hike at this point d/t significant heel pain. Prior Treatments and Tests X-ray on B ankles R= No fractures or dislocations. Ankle mortise is normally aligned. No suspicious bony lesions. L= L No fractures or dislocations. Ankle mortise is normally aligned. No suspicious bony lesions. Small plantar calcaneal bone spur is seen. Treatment Goals Patient/Caregiver Goals 1. to be able to walk without heel pain 2. to improve her ankle stiffness. PT-OP-C Subjective Start: 05/08/20 12:06 Freq: Status: Active Protocol: Document 05/25/20 08:15 HH (Rec: 05/25/20 09:04 [id number]) OP-PT Subjective Patient Comments Patient Comments I went on a vacation. Patient Reported Progress Same PT-OP-D Balance Start: 05/08/20 12:06 Freq: Status: Active Protocol: Document 05/08/20 12:06 HH (Rec: 05/08/20 12:34 [email or web address]) Balance Tests Single Limb Standing Single Limb- Right >60 Single Limb- Left >60 PT-OP-F Manual Assessment Start: 05/08/20 12:06 Freq: Status: Active Protocol: Document 05/08/20 12:06 HH (Rec: 05/08/20 12:34 [email or web address]) Manual Assessments Soft Tissue Assessment Soft Tissue Mobility Assessment significant tenderness and stiftness to pressure at B achilles tendons significant calluses noted at B heels Joint Mobility Assessment Joint Mobility Assessment decreased mid foot pronation mobility and calcaneal inversion and eversion mobility PT-OP-G Mobility & Gait Start: 05/08/20 12:06 Freq: Status: Active Protocol: Document 05/08/20 12:06 HH (Rec: 05/08/20 12:34 [email or web address]) OP Gait Assessment Comments Gait Comments pt walked with a hard heel strike bilaterally during initial contact she also has dec push off through forefoot at preswing. PT-OP-J Posture/Palpation/Skin Start: 05/08/20 12:06 Freq: Status: Active Protocol: Document 05/08/20 12:06 HH (Rec: 05/08/20 12:34 [email or web address]) Posture Evaluation Position Standing Evaluation View Anterior Ankle/Foot Posture (L) Plantarflexed,(R) Plantarflexed Foot Arch (L) High Arch,(R) High Arch Toe Posture (L) Clawed Toes,(R) Clawed Toes PT-OP-K Range of Motion Start: 05/08/20 12:06 Freq: Status: Active Protocol: Document 05/08/20 12:06 HH (Rec: 05/08/20 12:34 [email or web address]) Ankle and Foot Goniometric Range of Motion Ankle and Foot Right Active Ankle/Foot ROM WFL No Testing Position Supine Dorsiflexion with Knee Flexed 8 Dorsiflexion with Knee Extended 5 Plantarflexion 72 Inversion 34 Eversion 22 Left Active Ankle/Foot ROM WFL No Testing Position Supine Dorsiflexion with Knee Flexed 12 Dorsiflexion with Knee Extended 3 Plantarflexion 62 Inversion 30 Eversion 24 Ankle and Foot ROM Limitations ROM Limitations Soft Tissue Tightness Toe Range of Motion Toe Right Great Toe Toe ROM WFL No MTP Flexion Active (degrees) 40 MTP Extension Active (degrees) 20 Left Great Toe Toe ROM WFL No MTP Flexion Active (degrees) 45 MTP Extension Active (degrees) 18 Toes ROM Limitations Toe ROM Limitations Soft Tissue Tightness PT-OP-M Strength Start: 05/08/20 12:06 Freq: Status: Active Protocol: Document 05/08/20 12:06 HH (Rec: 05/08/20 12:34 HH [email or web address]) Ankle/Foot Strength Ankle and Foot Manual Muscle Testing Right Dorsiflexion (L4) 5 Normal Plantarflexion (S1) 5 Normal Inversion 5 Normal Eversion (S1) 5 Normal Comments single calf raise = 33 times without pain Left Dorsiflexion (L4) 5 Normal Plantarflexion (S1) 5 Normal Inversion 5 Normal Eversion (S1) 5 Normal Comments single calf raise = 33 times without pain PT-OP-Q Treatments Start: 05/08/20 12:06 Freq: Status: Active Protocol: Document 05/25/20 08:15 HH (Rec: 05/25/20 09:04 [id number]) Therapeutic Exercises Sitting Exercises plantar fascia Side bilateral Equipment Used rolling pin Comments self massage for HEP rolling pin Side bilateral Equipment Used rolling pin Comments self massage for HEP Standing Exercises weight shifting Standing Exercise Name lunge position Side bilateral Comments cues on foot pronation and supination, for HEP calf stretches Standing Exercise Name gastro and soleus Side bilateral Equipment Used on stairs MTP extension Side bilateral Comments for HEP Manual Therapy Treatment Soft Tissue Mobilization gastro Mobilization Type Sustained Pressure,Trigger Point Release Intensity/Depth Moderate Body Position Prone achilles tendon Mobilization Type Sustained Pressure,Trigger Point Release Intensity/Depth Moderate Body Position Sitting Joint Mobilizations B foot Grade III Body Position Supine Comments mid foot pronation calcaneal pronation PT-OP-T Assessment and Plan Start: 05/08/20 12:06 Freq: Status: Active Protocol: Document 05/25/20 08:15 HH (Rec: 05/25/20 09:04 [id number]) Physical Therapy Assessment Goals hiking Impairment unable to hike d/t heel pain Fittings Finisher Goal (LTG) pt will be able to hike again without increase in heel pain LTG Duration 8 weeks gait Impairment pt has poor gait mechanics Prison Goal (LTG) pt will be able to walk with increased forefoot push off and decreased heel strike to improve her stride length and gait mechanics. ROM Impairment pt has very lmited ankle and toe mobility Short Term Goal (STG) pt will show improved DF by 5 degrees and big toe extension by 10 degrees to improve her gait mechanics STG Duration 4 weeks Prison Goal (LTG) pt will show improved DF by 10 degrees and big toe extension by 20 degrees to improve her gait mechanics LTG Duration 8 weeks heel pain Impairment B heel pain =6/10 Short Term Goal (STG) Pt will have no more than 4/10 heel pain in the morning and after sitting for a long period of time. STG Duration 4 weeks Fittings Finisher Goal (LTG) Pt will have no more than 2/10 heel pain in the morning and after sitting for a long period of time. LTG Duration 8 weeks Assessment Summary Assessment Pt just returned from her vacation and she reports she has not been compliant with her HEP but do notice giving her instant relief. Spent time educating pt to be consistent with her stretching exercises especially in the morning and before her sleep. Will f/u next visit. Physical Therapy Plan Frequency and Duration Frequency of Treatment 2x/x2wk then 1x 6 wk Duration of Treatment 8 weeks Plan of Care Start Date 05/08/20 Plan of Care End Date 07/07/20 Therapeutic Interventions Therapeutic Interventions Balance Training,Gait Training ,Home Exercise Program,Joint Mobilizations,Manual Therapy, Neuromuscular Re-education, Orthotic/Prosthetic Management ,Patient/Caregiver Education, Self-Care/Home Management,Soft Tissue Mobilization,Taping, Therapeutic Activities, Therapeutic Exercises Modalities Cold Pack/Ice Massage,Electric Stimulation,Hot Packs, Infrared Therapy,Ultrasound Next Visit Focus/Plan Next Note Type Treatment Note Next Visit Plan STM on achilles calf stretch toe stretch towel scrunch foot pronation gait training toe push off
--- NOTE | 2020-06-05 16:37 | PT.OTN ---
Current Diagnoses Pain in unspecified ankle and joints of unspecified foot (06/05/20) Physical Therapy Treatment Note PT-OP-A Visit Information Start: 05/08/20 12:06 Freq: Status: Active Protocol: Document 06/05/20 14:32 HH (Rec: 06/05/20 16:37 [id number]) Out-Patient Physical Therapy Visit Information Visit Information Visit Type Treatment Note Visit Start Time 14:31 Visit Stop Time 15:15 Total Visit Minutes 44 Visit Number 4 Number of ASSEMBLING MOTOR BUILDER Visits 0 PT-OP-B Current Condition Start: 05/08/20 12:06 Freq: Status: Active Protocol: Document 05/08/20 12:06 HH (Rec: 05/08/20 12:34 HH [email or web address]) Current Condition History of Current Condition Onset Date 4 years ago Current Complaints B heel pain, ankle stiffness History of Current Condition Senia is a 54 year old woman with bialteral heel pain 6/10 and ankle stiffness. For the past 4 years, she has had bilateral ankle pain that has been getting worse. She notices the pain the most when she wakes up in the morning, after staying in one position for too long and walking down hill; better with stretches but only with temporary reliefs. Shes describes the pain as shooting from the Achilles tendon. Pain has waken her up every night. She denies lower extremity weakness, numbness. She is a very active woman and works out almost daily but notices she can only do 60% of what she used to do. Her current routine inlcudes : 3 miles walk/day and 30 mins MELI workout 4 times a week but she cannot hike at this point d/t significant heel pain. Prior Treatments and Tests X-ray on B ankles R= No fractures or dislocations. Ankle mortise is normally aligned. No suspicious bony lesions. L= L No fractures or dislocations. Ankle mortise is normally aligned. No suspicious bony lesions. Small plantar calcaneal bone spur is seen. Treatment Goals Patient/Caregiver Goals 1. to be able to walk without heel pain 2. to improve her ankle stiffness. PT-OP-C Subjective Start: 05/08/20 12:06 Freq: Status: Active Protocol: Document 06/05/20 14:32 HH (Rec: 06/05/20 16:37 [id number]) OP-PT Subjective Patient Comments Patient Comments I went on a walk on Monday and it hurts so bad than i needed to take some pain medication to sleep. I was feeling better prior to that especially after last treatment. Patient Reported Progress Same PT-OP-D Balance Start: 05/08/20 12:06 Freq: Status: Active Protocol: Document 05/08/20 12:06 (Rec: 05/08/20 12:34 [email or web address]) Balance Tests Single Limb Standing Single Limb- Right >60 Single Limb- Left >60 PT-OP-F Manual Assessment Start: 05/08/20 12:06 Freq: Status: Active Protocol: Document 05/08/20 12:06 (Rec: 05/08/20 12:34 [email or web address]) Manual Assessments Soft Tissue Assessment Soft Tissue Mobility Assessment significant tenderness and stiftness to pressure at B achilles tendons significant calluses noted at B heels Joint Mobility Assessment Joint Mobility Assessment decreased mid foot pronation mobility and calcaneal inversion and eversion mobility PT-OP-G Mobility & Gait Start: 05/08/20 12:06 Freq: Status: Active Protocol: Document 05/08/20 12:06 (Rec: 05/08/20 12:34 [email or web address]) OP Gait Assessment Comments Gait Comments pt walked with a hard heel strike bilaterally during initial contact she also has dec push off through forefoot at preswing. PT-OP-J Posture/Palpation/Skin Start: 05/08/20 12:06 Freq: Status: Active Protocol: Document 05/08/20 12:06 (Rec: 05/08/20 12:34 [email or web address]) Posture Evaluation Position Standing Evaluation View Anterior Ankle/Foot Posture (L) Plantarflexed,(R) Plantarflexed Foot Arch (L) High Arch,(R) High Arch Toe Posture (L) Clawed Toes,(R) Clawed Toes PT-OP-K Range of Motion Start: 05/08/20 12:06 Freq: Status: Active Protocol: Document 05/08/20 12:06 (Rec: 05/08/20 12:34 [email or web address]) Ankle and Foot Goniometric Range of Motion Ankle and Foot Right Active Ankle/Foot ROM WFL No Testing Position Supine Dorsiflexion with Knee Flexed 8 Dorsiflexion with Knee Extended 5 Plantarflexion 72 Inversion 34 Eversion 22 Left Active Ankle/Foot ROM WFL No Testing Position Supine Dorsiflexion with Knee Flexed 12 Dorsiflexion with Knee Extended 3 Plantarflexion 62 Inversion 30 Eversion 24 Ankle and Foot ROM Limitations ROM Limitations Soft Tissue Tightness Toe Range of Motion Toe Right Great Toe Toe ROM WFL No MTP Flexion Active (degrees) 40 MTP Extension Active (degrees) 20 Left Great Toe Toe ROM WFL No MTP Flexion Active (degrees) 45 MTP Extension Active (degrees) 18 Toes ROM Limitations Toe ROM Limitations Soft Tissue Tightness PT-OP-M Strength Start: 05/08/20 12:06 Freq: Status: Active Protocol: Document 05/08/20 12:06 HH (Rec: 05/08/20 12:34 [email or web address]) Ankle/Foot Strength Ankle and Foot Manual Muscle Testing Right Dorsiflexion (L4) 5 Normal Plantarflexion (S1) 5 Normal Inversion 5 Normal Eversion (S1) 5 Normal Comments single calf raise = 33 times without pain Left Dorsiflexion (L4) 5 Normal Plantarflexion (S1) 5 Normal Inversion 5 Normal Eversion (S1) 5 Normal Comments single calf raise = 33 times without pain PT-OP-Q Treatments Start: 05/08/20 12:06 Freq: Status: Active Protocol: Document 06/05/20 14:32 HH (Rec: 06/05/20 16:37 [email or web address]) Therapeutic Exercises Sitting Exercises plantar fascia Side bilateral Equipment Used rolling pin Comments self massage for HEP Standing Exercises posterior glide at ankle joint Standing Exercise Name on chair Equipment Used with level 5 band tied as an anchor Reps/Minutes 10 reps x 2 Comments self mobilization at home calf stretches Standing Exercise Name gastro and soleus Side bilateral Equipment Used on stairs MTP extension Side bilateral Comments for HEP Manual Therapy Treatment Soft Tissue Mobilization gastro Mobilization Type Sustained Pressure,Trigger Point Release Intensity/Depth Moderate Body Position Prone achilles tendon Mobilization Type Sustained Pressure,Trigger Point Release Intensity/Depth Moderate Body Position Sitting Comments increased tenderness today at L achilles tendon Joint Mobilizations post glide Direction post Grade III Body Position Supine Comments post glide of mortis B foot Grade III Body Position Supine Comments mid foot pronation calcaneal pronation Taping achilles Body Location bilateral Type of Tape Kinesio Tape Skin Inspection good Comments I strip from heel to distal calf I for both maleoli Self-Care/Home Management Treatment Education Patient Education Home Exercise Program,Joint Protection,Safety Other Education discussed with pt reduce his walking activities by reducing daily miles, replace it with biking or reducing walking speed for load managmeent PT-OP-T Assessment and Plan Start: 05/08/20 12:06 Freq: Status: Active Protocol: Document 06/05/20 14:32 HH (Rec: 06/05/20 16:37 HH [id number]) Physical Therapy Assessment Goals hiking Impairment unable to hike d/t heel pain Nursing Home Goal (LTG) pt will be able to hike again without increase in heel pain LTG Duration 8 weeks gait Impairment pt has poor gait mechanics Nursing Home Goal (LTG) pt will be able to walk with increased forefoot push off and decreased heel strike to improve her stride length and gait mechanics. ROM Impairment pt has very lmited ankle and toe mobility Short Term Goal (STG) pt will show improved DF by 5 degrees and big toe extension by 10 degrees to improve her gait mechanics STG Duration 4 weeks Nursing Home Goal (LTG) pt will show improved DF by 10 degrees and big toe extension by 20 degrees to improve her gait mechanics LTG Duration 8 weeks heel pain Impairment B heel pain =6/10 Short Term Goal (STG) Pt will have no more than 4/10 heel pain in the morning and after sitting for a long period of time. STG Duration 4 weeks Hi Teacher Goal (LTG) Pt will have no more than 2/10 heel pain in the morning and after sitting for a long period of time. LTG Duration 8 weeks Assessment Summary Assessment Pt stated she felt good for a week since last visit but had a flare up on Mon after the walk. Spent time discussing load management since pt is still walking 4-6 miles a day. Recommended her to reduce miles, speed, or replacing it with biking. Physical Therapy Plan Frequency and Duration Frequency of Treatment 2x/x2wk then 1x 6 wk Duration of Treatment 8 weeks Plan of Care Start Date 05/08/20 Plan of Care End Date 07/07/20 Next Visit Focus/Plan Next Note Type Treatment Note Next Visit Plan STM on achilles calf stretch toe stretch towel scrunch foot pronation gait training toe push off
--- NOTE | 2020-06-08 15:19 | PT.OTN ---
Current Diagnoses Pain in unspecified ankle and joints of unspecified foot (06/08/20) Physical Therapy Treatment Note PT-OP-A Visit Information Start: 05/08/20 12:06 Freq: Status: Active Protocol: Document 06/05/20 14:32 HH (Rec: 06/05/20 16:37 [id number]) Out-Patient Physical Therapy Visit Information Visit Information Visit Type Treatment Note Visit Start Time 14:31 Visit Stop Time 15:15 Total Visit Minutes 44 Visit Number 4 Number of MAIL CENSOR Visits 0 PT-OP-B Current Condition Start: 05/08/20 12:06 Freq: Status: Active Protocol: Document 05/08/20 12:06 HH (Rec: 05/08/20 12:34 HH [email or web address]) Current Condition History of Current Condition Onset Date 4 years ago Current Complaints B heel pain, ankle stiffness History of Current Condition Senia is a 54 year old woman with bialteral heel pain 6/10 and ankle stiffness. For the past 4 years, she has had bilateral ankle pain that has been getting worse. She notices the pain the most when she wakes up in the morning, after staying in one position for too long and walking down hill; better with stretches but only with temporary reliefs. Shes describes the pain as shooting from the Achilles tendon. Pain has waken her up every night. She denies lower extremity weakness, numbness. She is a very active woman and works out almost daily but notices she can only do 60% of what she used to do. Her current routine inlcudes : 3 miles walk/day and 30 mins MELI workout 4 times a week but she cannot hike at this point d/t significant heel pain. Prior Treatments and Tests X-ray on B ankles R= No fractures or dislocations. Ankle mortise is normally aligned. No suspicious bony lesions. L= L No fractures or dislocations. Ankle mortise is normally aligned. No suspicious bony lesions. Small plantar calcaneal bone spur is seen. Treatment Goals Patient/Caregiver Goals 1. to be able to walk without heel pain 2. to improve her ankle stiffness. PT-OP-C Subjective Start: 05/08/20 12:06 Freq: Status: Active Protocol: Document 06/05/20 14:32 HH (Rec: 06/05/20 16:37 [id number]) OP-PT Subjective Patient Comments Patient Comments I went on a walk on Monday and it hurts so bad than i needed to take some pain medication to sleep. I was feeling better prior to that especially after last treatment. Patient Reported Progress Same PT-OP-D Balance Start: 05/08/20 12:06 Freq: Status: Active Protocol: Document 05/08/20 12:06 (Rec: 05/08/20 12:34 [email or web address]) Balance Tests Single Limb Standing Single Limb- Right >60 Single Limb- Left >60 PT-OP-F Manual Assessment Start: 05/08/20 12:06 Freq: Status: Active Protocol: Document 05/08/20 12:06 (Rec: 05/08/20 12:34 [email or web address]) Manual Assessments Soft Tissue Assessment Soft Tissue Mobility Assessment significant tenderness and stiftness to pressure at B achilles tendons significant calluses noted at B heels Joint Mobility Assessment Joint Mobility Assessment decreased mid foot pronation mobility and calcaneal inversion and eversion mobility PT-OP-G Mobility & Gait Start: 05/08/20 12:06 Freq: Status: Active Protocol: Document 05/08/20 12:06 (Rec: 05/08/20 12:34 [email or web address]) OP Gait Assessment Comments Gait Comments pt walked with a hard heel strike bilaterally during initial contact she also has dec push off through forefoot at preswing. PT-OP-J Posture/Palpation/Skin Start: 05/08/20 12:06 Freq: Status: Active Protocol: Document 05/08/20 12:06 (Rec: 05/08/20 12:34 [email or web address]) Posture Evaluation Position Standing Evaluation View Anterior Ankle/Foot Posture (L) Plantarflexed,(R) Plantarflexed Foot Arch (L) High Arch,(R) High Arch Toe Posture (L) Clawed Toes,(R) Clawed Toes PT-OP-K Range of Motion Start: 05/08/20 12:06 Freq: Status: Active Protocol: Document 05/08/20 12:06 (Rec: 05/08/20 12:34 [email or web address]) Ankle and Foot Goniometric Range of Motion Ankle and Foot Right Active Ankle/Foot ROM WFL No Testing Position Supine Dorsiflexion with Knee Flexed 8 Dorsiflexion with Knee Extended 5 Plantarflexion 72 Inversion 34 Eversion 22 Left Active Ankle/Foot ROM WFL No Testing Position Supine Dorsiflexion with Knee Flexed 12 Dorsiflexion with Knee Extended 3 Plantarflexion 62 Inversion 30 Eversion 24 Ankle and Foot ROM Limitations ROM Limitations Soft Tissue Tightness Toe Range of Motion Toe Right Great Toe Toe ROM WFL No MTP Flexion Active (degrees) 40 MTP Extension Active (degrees) 20 Left Great Toe Toe ROM WFL No MTP Flexion Active (degrees) 45 MTP Extension Active (degrees) 18 Toes ROM Limitations Toe ROM Limitations Soft Tissue Tightness PT-OP-M Strength Start: 05/08/20 12:06 Freq: Status: Active Protocol: Document 05/08/20 12:06 HH (Rec: 05/08/20 12:34 [email or web address]) Ankle/Foot Strength Ankle and Foot Manual Muscle Testing Right Dorsiflexion (L4) 5 Normal Plantarflexion (S1) 5 Normal Inversion 5 Normal Eversion (S1) 5 Normal Comments single calf raise = 33 times without pain Left Dorsiflexion (L4) 5 Normal Plantarflexion (S1) 5 Normal Inversion 5 Normal Eversion (S1) 5 Normal Comments single calf raise = 33 times without pain PT-OP-Q Treatments Start: 05/08/20 12:06 Freq: Status: Active Protocol: Document 06/05/20 14:32 HH (Rec: 06/05/20 16:37 [id number]) Therapeutic Exercises Sitting Exercises plantar fascia Side bilateral Equipment Used rolling pin Comments self massage for HEP Standing Exercises posterior glide at ankle joint Standing Exercise Name on chair Equipment Used with level 5 band tied as an anchor Reps/Minutes 10 reps x 2 Comments self mobilization at home calf stretches Standing Exercise Name gastro and soleus Side bilateral Equipment Used on stairs MTP extension Side bilateral Comments for HEP Manual Therapy Treatment Soft Tissue Mobilization gastro Mobilization Type Sustained Pressure,Trigger Point Release Intensity/Depth Moderate Body Position Prone achilles tendon Mobilization Type Sustained Pressure,Trigger Point Release Intensity/Depth Moderate Body Position Sitting Comments increased tenderness today at L achilles tendon Joint Mobilizations post glide Direction post Grade III Body Position Supine Comments post glide of mortis B foot Grade III Body Position Supine Comments mid foot pronation calcaneal pronation Taping achilles Body Location bilateral Type of Tape Kinesio Tape Skin Inspection good Comments I strip from heel to distal calf I for both maleoli Self-Care/Home Management Treatment Education Patient Education Home Exercise Program,Joint Protection,Safety Other Education discussed with pt reduce his walking activities by reducing daily miles, replace it with biking or reducing walking speed for load managmeent PT-OP-T Assessment and Plan Start: 05/08/20 12:06 Freq: Status: Active Protocol: Document 06/05/20 14:32 HH (Rec: 06/05/20 16:37 HH [id number]) Physical Therapy Assessment Goals hiking Impairment unable to hike d/t heel pain [facility] Goal (LTG) pt will be able to hike again without increase in heel pain LTG Duration 8 weeks gait Impairment pt has poor gait mechanics [facility] Goal (LTG) pt will be able to walk with increased forefoot push off and decreased heel strike to improve her stride length and gait mechanics. ROM Impairment pt has very lmited ankle and toe mobility Short Term Goal (STG) pt will show improved DF by 5 degrees and big toe extension by 10 degrees to improve her gait mechanics STG Duration 4 weeks [facility] Goal (LTG) pt will show improved DF by 10 degrees and big toe extension by 20 degrees to improve her gait mechanics LTG Duration 8 weeks heel pain Impairment B heel pain =6/10 Short Term Goal (STG) Pt will have no more than 4/10 heel pain in the morning and after sitting for a long period of time. 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 LTG Duration 8 weeks Assessment Summary Assessment Pt stated she felt good for a week since last visit but had a flare up on Mon after the walk. Spent time discussing load management since pt is still walking 4-6 miles a day. Recommended her to reduce miles, speed, or replacing it with biking. Physical Therapy Plan Frequency and Duration Frequency of Treatment 2x/x2wk then 1x 6 wk Duration of Treatment 8 weeks Plan of Care Start Date 05/08/20 Plan of Care End Date 07/07/20 Next Visit Focus/Plan Next Note Type Treatment Note Next Visit Plan STM on achilles calf stretch toe stretch towel scrunch foot pronation gait training toe push off
--- NOTE | 2020-06-08 15:20 | PT.OTN ---
Current Diagnoses Pain in unspecified ankle and joints of unspecified foot (06/08/20) Physical Therapy Treatment Note PT-OP-A Visit Information Start: 05/08/20 12:06 Freq: Status: Active Protocol: Document 06/08/20 14:30 HH (Rec: 06/08/20 15:19 [id number]) Out-Patient Physical Therapy Visit Information Visit Information Visit Type Treatment Note Visit Start Time 14:32 Visit Stop Time 15:15 Total Visit Minutes 43 Visit Number 06/24 Number of GOLD PROSPECTOR Visits 0 PT-OP-B Current Condition Start: 05/08/20 12:06 Freq: Status: Active Protocol: Document 05/08/20 12:06 HH (Rec: 05/08/20 12:34 HH [email or web address]) Current Condition History of Current Condition Onset Date 4 years ago Current Complaints B heel pain, ankle stiffness History of Current Condition Senia is a 54 year old woman with bialteral heel pain 6/10 and ankle stiffness. For the past 4 years, she has had bilateral ankle pain that has been getting worse. She notices the pain the most when she wakes up in the morning, after staying in one position for too long and walking down hill; better with stretches but only with temporary reliefs. Shes describes the pain as shooting from the Achilles tendon. Pain has waken her up every night. She denies lower extremity weakness, numbness. She is a very active woman and works out almost daily but notices she can only do 60% of what she used to do. Her current routine inlcudes : 3 miles walk/day and 30 mins MELI workout 4 times a week but she cannot hike at this point d/t significant heel pain. Prior Treatments and Tests X-ray on B ankles R= No fractures or dislocations. Ankle mortise is normally aligned. No suspicious bony lesions. L= L No fractures or dislocations. Ankle mortise is normally aligned. No suspicious bony lesions. Small plantar calcaneal bone spur is seen. Treatment Goals Patient/Caregiver Goals 1. to be able to walk without heel pain 2. to improve her ankle stiffness. PT-OP-C Subjective Start: 05/08/20 12:06 Freq: Status: Active Protocol: Document 06/08/20 14:30 HH (Rec: 06/08/20 15:19 HH [id number]) OP-PT Subjective Patient Comments Patient Comments I have less pain since last visit and johnathon been walking slower in the morning which helps a lot. Patient Reported Progress Improving PT-OP-D Balance Start: 05/08/20 12:06 Freq: Status: Active Protocol: Document 05/08/20 12:06 (Rec: 05/08/20 12:34 [email or web address]) Balance Tests Single Limb Standing Single Limb- Right >60 Single Limb- Left >60 PT-OP-F Manual Assessment Start: 05/08/20 12:06 Freq: Status: Active Protocol: Document 05/08/20 12:06 HH (Rec: 05/08/20 12:34 [email or web address]) Manual Assessments Soft Tissue Assessment Soft Tissue Mobility Assessment significant tenderness and stiftness to pressure at B achilles tendons significant calluses noted at B heels Joint Mobility Assessment Joint Mobility Assessment decreased mid foot pronation mobility and calcaneal inversion and eversion mobility PT-OP-G Mobility & Gait Start: 05/08/20 12:06 Freq: Status: Active Protocol: Document 05/08/20 12:06 (Rec: 05/08/20 12:34 [email or web address]) OP Gait Assessment Comments Gait Comments pt walked with a hard heel strike bilaterally during initial contact she also has dec push off through forefoot at preswing. PT-OP-J Posture/Palpation/Skin Start: 05/08/20 12:06 Freq: Status: Active Protocol: Document 05/08/20 12:06 HH (Rec: 05/08/20 12:34 [email or web address]) Posture Evaluation Position Standing Evaluation View Anterior Ankle/Foot Posture (L) Plantarflexed,(R) Plantarflexed Foot Arch (L) High Arch,(R) High Arch Toe Posture (L) Clawed Toes,(R) Clawed Toes PT-OP-K Range of Motion Start: 05/08/20 12:06 Freq: Status: Active Protocol: Document 05/08/20 12:06 HH (Rec: 05/08/20 12:34 [email or web address]) Ankle and Foot Goniometric Range of Motion Ankle and Foot Right Active Ankle/Foot ROM WFL No Testing Position Supine Dorsiflexion with Knee Flexed 8 Dorsiflexion with Knee Extended 5 Plantarflexion 72 Inversion 34 Eversion 22 Left Active Ankle/Foot ROM WFL No Testing Position Supine Dorsiflexion with Knee Flexed 12 Dorsiflexion with Knee Extended 3 Plantarflexion 62 Inversion 30 Eversion 24 Ankle and Foot ROM Limitations ROM Limitations Soft Tissue Tightness Toe Range of Motion Toe Right Great Toe Toe ROM WFL No MTP Flexion Active (degrees) 40 MTP Extension Active (degrees) 20 Left Great Toe Toe ROM WFL No MTP Flexion Active (degrees) 45 MTP Extension Active (degrees) 18 Toes ROM Limitations Toe ROM Limitations Soft Tissue Tightness PT-OP-M Strength Start: 05/08/20 12:06 Freq: Status: Active Protocol: Document 05/08/20 12:06 HH (Rec: 05/08/20 12:34 HH [email or web address]) Ankle/Foot Strength Ankle and Foot Manual Muscle Testing Right Dorsiflexion (L4) 5 Normal Plantarflexion (S1) 5 Normal Inversion 5 Normal Eversion (S1) 5 Normal Comments single calf raise = 33 times without pain Left Dorsiflexion (L4) 5 Normal Plantarflexion (S1) 5 Normal Inversion 5 Normal Eversion (S1) 5 Normal Comments single calf raise = 33 times without pain PT-OP-Q Treatments Start: 05/08/20 12:06 Freq: Status: Active Protocol: Document 06/08/20 14:30 HH (Rec: 06/08/20 15:19 [id number]) Therapeutic Exercises Standing Exercises uneven surface Standing Exercise Name balance discs first, then SLS at blue foam Side bilateral Reps/Minutes 8 mins ankle board Standing Exercise Name sagittal and lateral Side bilateral Reps/Minutes 2 mins posterior glide at ankle joint Standing Exercise Name on chair Equipment Used with level 5 band tied as an anchor Reps/Minutes 10 reps x 2 Comments self mobilization at home calf stretches Standing Exercise Name gastro and soleus Side bilateral Equipment Used on stairs Manual Therapy Treatment Soft Tissue Mobilization gastro Mobilization Type Sustained Pressure,Trigger Point Release Intensity/Depth Moderate Body Position Prone achilles tendon Mobilization Type Sustained Pressure,Trigger Point Release Intensity/Depth Moderate Body Position Sitting Comments less tenderness today at L achilles tendon Joint Mobilizations post glide Direction post Grade III Body Position Supine Comments post glide of mortis PT-OP-T Assessment and Plan Start: 05/08/20 12:06 Freq: Status: Active Protocol: Document 06/08/20 14:30 HH (Rec: 06/08/20 15:19 HH [id number]) Physical Therapy Assessment Goals hiking Impairment unable to hike d/t heel pain Electronic Train Control Technician Goal (LTG) pt will be able to hike again without increase in heel pain LTG Duration 8 weeks gait Impairment pt has poor gait mechanics Electronic Train Control Technician Goal (LTG) pt will be able to walk with increased forefoot push off and decreased heel strike to improve her stride length and gait mechanics. ROM Impairment pt has very lmited ankle and toe mobility Short Term Goal (STG) pt will show improved DF by 5 degrees and big toe extension by 10 degrees to improve her gait mechanics STG Duration 4 weeks Detention Goal (LTG) pt will show improved DF by 10 degrees and big toe extension by 20 degrees to improve her gait mechanics LTG Duration 8 weeks heel pain Impairment B heel pain =6/10 Short Term Goal (STG) Pt will have no more than 4/10 heel pain in the morning and after sitting for a long period of time. STG Duration 4 weeks Electronic Train Control Technician Goal (LTG) Pt will have no more than 2/10 heel pain in the morning and after sitting for a long period of time. LTG Duration 8 weeks Assessment Summary Assessment Pt stated she has less pain since last visit who has been managing her morning walk by a slow pace. Less tenderness at achilles tendon and calf today. Pt elenita session well with SL balance and strength focused ex. Physical Therapy Plan Frequency and Duration Frequency of Treatment 2x/x2wk then 1x 6 wk Duration of Treatment 8 weeks Plan of Care Start Date 05/08/20 Plan of Care End Date 07/07/20 Therapeutic Interventions Therapeutic Interventions Balance Training,Gait Training ,Home Exercise Program,Joint Mobilizations,Manual Therapy, Neuromuscular Re-education, Orthotic/Prosthetic Management ,Patient/Caregiver Education, Self-Care/Home Management,Soft Tissue Mobilization,Taping, Therapeutic Activities, Therapeutic Exercises Modalities Cold Pack/Ice Massage,Electric Stimulation,Hot Packs, Infrared Therapy,Ultrasound Next Visit Focus/Plan Next Note Type Treatment Note Next Visit Plan STM on achilles calf stretch toe stretch towel scrunch foot pronation gait training toe push off
--- NOTE | 2020-06-11 12:12 | PT.OTN ---
Current Diagnoses Pain in unspecified ankle and joints of unspecified foot (06/11/20) Physical Therapy Treatment Note PT-OP-A Visit Information Start: 05/08/20 12:06 Freq: Status: Active Protocol: Document 06/11/20 11:15 HH (Rec: 06/11/20 12:12 [id number]) Out-Patient Physical Therapy Visit Information Visit Information Visit Type Treatment Note Visit Start Time 11:17 Visit Stop Time 12:00 Total Visit Minutes 43 Visit Number 07/25 Number of SLITTER AND CUTTER OPERATOR Visits 0 PT-OP-B Current Condition Start: 05/08/20 12:06 Freq: Status: Active Protocol: Document 05/08/20 12:06 HH (Rec: 05/08/20 12:34 HH [email or web address]) Current Condition History of Current Condition Onset Date 4 years ago Current Complaints B heel pain, ankle stiffness History of Current Condition Senia is a 54 year old woman with bialteral heel pain 6/10 and ankle stiffness. For the past 4 years, she has had bilateral ankle pain that has been getting worse. She notices the pain the most when she wakes up in the morning, after staying in one position for too long and walking down hill; better with stretches but only with temporary reliefs. Shes describes the pain as shooting from the Achilles tendon. Pain has waken her up every night. She denies lower extremity weakness, numbness. She is a very active woman and works out almost daily but notices she can only do 60% of what she used to do. Her current routine inlcudes : 3 miles walk/day and 30 mins MELI workout 4 times a week but she cannot hike at this point d/t significant heel pain. Prior Treatments and Tests X-ray on B ankles R= No fractures or dislocations. Ankle mortise is normally aligned. No suspicious bony lesions. L= L No fractures or dislocations. Ankle mortise is normally aligned. No suspicious bony lesions. Small plantar calcaneal bone spur is seen. Treatment Goals Patient/Caregiver Goals 1. to be able to walk without heel pain 2. to improve her ankle stiffness. PT-OP-C Subjective Start: 05/08/20 12:06 Freq: Status: Active Protocol: Document 06/11/20 11:15 HH (Rec: 06/11/20 12:12 [id number]) OP-PT Subjective Patient Comments Patient Comments I was doing good until i went for a hike yesterday and it hurts so bad after. Patient Reported Progress Same PT-OP-D Balance Start: 05/08/20 12:06 Freq: Status: Active Protocol: Document 05/08/20 12:06 (Rec: 05/08/20 12:34 [email or web address]) Balance Tests Single Limb Standing Single Limb- Right >60 Single Limb- Left >60 PT-OP-F Manual Assessment Start: 05/08/20 12:06 Freq: Status: Active Protocol: Document 05/08/20 12:06 (Rec: 05/08/20 12:34 [email or web address]) Manual Assessments Soft Tissue Assessment Soft Tissue Mobility Assessment significant tenderness and stiftness to pressure at B achilles tendons significant calluses noted at B heels Joint Mobility Assessment Joint Mobility Assessment decreased mid foot pronation mobility and calcaneal inversion and eversion mobility PT-OP-G Mobility & Gait Start: 05/08/20 12:06 Freq: Status: Active Protocol: Document 05/08/20 12:06 (Rec: 05/08/20 12:34 [email or web address]) OP Gait Assessment Comments Gait Comments pt walked with a hard heel strike bilaterally during initial contact she also has dec push off through forefoot at preswing. PT-OP-J Posture/Palpation/Skin Start: 05/08/20 12:06 Freq: Status: Active Protocol: Document 05/08/20 12:06 (Rec: 05/08/20 12:34 [email or web address]) Posture Evaluation Position Standing Evaluation View Anterior Ankle/Foot Posture (L) Plantarflexed,(R) Plantarflexed Foot Arch (L) High Arch,(R) High Arch Toe Posture (L) Clawed Toes,(R) Clawed Toes PT-OP-K Range of Motion Start: 05/08/20 12:06 Freq: Status: Active Protocol: Document 05/08/20 12:06 (Rec: 05/08/20 12:34 [email or web address]) Ankle and Foot Goniometric Range of Motion Ankle and Foot Right Active Ankle/Foot ROM WFL No Testing Position Supine Dorsiflexion with Knee Flexed 8 Dorsiflexion with Knee Extended 5 Plantarflexion 72 Inversion 34 Eversion 22 Left Active Ankle/Foot ROM WFL No Testing Position Supine Dorsiflexion with Knee Flexed 12 Dorsiflexion with Knee Extended 3 Plantarflexion 62 Inversion 30 Eversion 24 Ankle and Foot ROM Limitations ROM Limitations Soft Tissue Tightness Toe Range of Motion Toe Right Great Toe Toe ROM WFL No MTP Flexion Active (degrees) 40 MTP Extension Active (degrees) 20 Left Great Toe Toe ROM WFL No MTP Flexion Active (degrees) 45 MTP Extension Active (degrees) 18 Toes ROM Limitations Toe ROM Limitations Soft Tissue Tightness PT-OP-M Strength Start: 05/08/20 12:06 Freq: Status: Active Protocol: Document 05/08/20 12:06 HH (Rec: 05/08/20 12:34 [email or web address]) Ankle/Foot Strength Ankle and Foot Manual Muscle Testing Right Dorsiflexion (L4) 5 Normal Plantarflexion (S1) 5 Normal Inversion 5 Normal Eversion (S1) 5 Normal Comments single calf raise = 33 times without pain Left Dorsiflexion (L4) 5 Normal Plantarflexion (S1) 5 Normal Inversion 5 Normal Eversion (S1) 5 Normal Comments single calf raise = 33 times without pain PT-OP-Q Treatments Start: 05/08/20 12:06 Freq: Status: Active Protocol: Document 06/11/20 11:15 HH (Rec: 06/11/20 12:12 [id number]) Cardio Equipment Bicycle (Upright) Duration (Minutes) 8 Resistance 8 Gym Equipment Shuttle Recovery heel raises Resistance 37# Shuttle Recovery Platform Stable Reps/Time 20x2 SL squat Resistance 67# Shuttle Recovery Platform Stable Reps/Time 15x2 Therapeutic Exercises Standing Exercises uneven surface Standing Exercise Name SLS at blue foam Side bilateral Reps/Minutes 8 mins ankle board Standing Exercise Name sagittal and lateral Side bilateral Reps/Minutes 2 mins Manual Therapy Treatment Soft Tissue Mobilization gastro Mobilization Type Sustained Pressure,Trigger Point Release Intensity/Depth Moderate Body Position Prone achilles tendon Mobilization Type Sustained Pressure,Trigger Point Release Intensity/Depth Moderate Body Position Sitting Comments less tenderness today at L achilles tendon but increased on R tendon Joint Mobilizations post glide Direction post Grade III Body Position Supine Comments post glide of mortis PT-OP-T Assessment and Plan Start: 05/08/20 12:06 Freq: Status: Active Protocol: Document 06/11/20 11:15 HH (Rec: 06/11/20 12:12 HH [id number]) Physical Therapy Assessment Goals hiking Impairment unable to hike d/t heel pain Corral Boss Goal (LTG) pt will be able to hike again without increase in heel pain LTG Duration 8 weeks gait Impairment pt has poor gait mechanics Correction Goal (LTG) pt will be able to walk with increased forefoot push off and decreased heel strike to improve her stride length and gait mechanics. ROM Impairment pt has very lmited ankle and toe mobility Short Term Goal (STG) pt will show improved DF by 5 degrees and big toe extension by 10 degrees to improve her gait mechanics STG Duration 4 weeks Corral Boss Goal (LTG) pt will show improved DF by 10 degrees and big toe extension by 20 degrees to improve her gait mechanics LTG Duration 8 weeks heel pain Impairment B heel pain =6/10 Short Term Goal (STG) Pt will have no more than 4/10 heel pain in the morning and after sitting for a long period of time. STG Duration 4 weeks Correction Goal (LTG) Pt will have no more than 2/10 heel pain in the morning and after sitting for a long period of time. LTG Duration 8 weeks Assessment Summary Assessment Pt stated she was feeling good until she went for a hike yesterday. Spent time educating pt on load management to avoid hiking, fast walking and walking on up /downhill at this point and focused on stretching and added heel raises for HEP/. Physical Therapy Plan Frequency and Duration Frequency of Treatment 2x/x2wk then 1x 6 wk Duration of Treatment 8 weeks Plan of Care Start Date 05/08/20 Plan of Care End Date 07/07/20 Next Visit Focus/Plan Next Note Type Treatment Note Next Visit Plan STM on achilles calf stretch toe stretch towel scrunch foot pronation gait training toe push off
--- NOTE | 2020-06-16 12:57 | PT.OTN ---
Current Diagnoses Pain in unspecified ankle and joints of unspecified foot (06/16/20) Physical Therapy Treatment Note PT-OP-A Visit Information Start: 05/08/20 12:06 Freq: Status: Active Protocol: Document 06/16/20 11:15 HH (Rec: 06/16/20 12:11 [id number]) Out-Patient Physical Therapy Visit Information Visit Information Visit Type Treatment Note Visit Start Time 11:17 Visit Stop Time 12:00 Total Visit Minutes 43 Visit Number 07/25 Number of ICE CREAM FREEZER HELPER Visits 0 PT-OP-B Current Condition Start: 05/08/20 12:06 Freq: Status: Active Protocol: Document 05/08/20 12:06 HH (Rec: 05/08/20 12:34 [email or web address]) Current Condition History of Current Condition Onset Date 4 years ago Current Complaints B heel pain, ankle stiffness History of Current Condition Senia is a 54 year old woman with bialteral heel pain 6/10 and ankle stiffness. For the past 4 years, she has had bilateral ankle pain that has been getting worse. She notices the pain the most when she wakes up in the morning, after staying in one position for too long and walking down hill; better with stretches but only with temporary reliefs. Shes describes the pain as shooting from the Achilles tendon. Pain has waken her up every night. She denies lower extremity weakness, numbness. She is a very active woman and works out almost daily but notices she can only do 60% of what she used to do. Her current routine inlcudes : 3 miles walk/day and 30 mins MELI workout 4 times a week but she cannot hike at this point d/t significant heel pain. Prior Treatments and Tests X-ray on B ankles R= No fractures or dislocations. Ankle mortise is normally aligned. No suspicious bony lesions. L= L No fractures or dislocations. Ankle mortise is normally aligned. No suspicious bony lesions. Small plantar calcaneal bone spur is seen. Treatment Goals Patient/Caregiver Goals 1. to be able to walk without heel pain 2. to improve her ankle stiffness. PT-OP-C Subjective Start: 05/08/20 12:06 Freq: Status: Active Protocol: Document 06/16/20 11:15 HH (Rec: 06/16/20 12:11 [id number]) OP-PT Subjective Patient Comments Patient Comments i was better than last time i was here. I did feel some discomfort from my walk this morning. Patient Reported Progress Improving PT-OP-D Balance Start: 05/08/20 12:06 Freq: Status: Active Protocol: Document 05/08/20 12:06 (Rec: 05/08/20 12:34 [email or web address]) Balance Tests Single Limb Standing Single Limb- Right >60 Single Limb- Left >60 PT-OP-F Manual Assessment Start: 05/08/20 12:06 Freq: Status: Active Protocol: Document 05/08/20 12:06 HH (Rec: 05/08/20 12:34 [email or web address]) Manual Assessments Soft Tissue Assessment Soft Tissue Mobility Assessment significant tenderness and stiftness to pressure at B achilles tendons significant calluses noted at B heels Joint Mobility Assessment Joint Mobility Assessment decreased mid foot pronation mobility and calcaneal inversion and eversion mobility PT-OP-G Mobility & Gait Start: 05/08/20 12:06 Freq: Status: Active Protocol: Document 05/08/20 12:06 (Rec: 05/08/20 12:34 [email or web address]) OP Gait Assessment Comments Gait Comments pt walked with a hard heel strike bilaterally during initial contact she also has dec push off through forefoot at preswing. PT-OP-J Posture/Palpation/Skin Start: 05/08/20 12:06 Freq: Status: Active Protocol: Document 05/08/20 12:06 HH (Rec: 05/08/20 12:34 [email or web address]) Posture Evaluation Position Standing Evaluation View Anterior Ankle/Foot Posture (L) Plantarflexed,(R) Plantarflexed Foot Arch (L) High Arch,(R) High Arch Toe Posture (L) Clawed Toes,(R) Clawed Toes PT-OP-K Range of Motion Start: 05/08/20 12:06 Freq: Status: Active Protocol: Document 05/08/20 12:06 (Rec: 05/08/20 12:34 [email or web address]) Ankle and Foot Goniometric Range of Motion Ankle and Foot Right Active Ankle/Foot ROM WFL No Testing Position Supine Dorsiflexion with Knee Flexed 8 Dorsiflexion with Knee Extended 5 Plantarflexion 72 Inversion 34 Eversion 22 Left Active Ankle/Foot ROM WFL No Testing Position Supine Dorsiflexion with Knee Flexed 12 Dorsiflexion with Knee Extended 3 Plantarflexion 62 Inversion 30 Eversion 24 Ankle and Foot ROM Limitations ROM Limitations Soft Tissue Tightness Toe Range of Motion Toe Right Great Toe Toe ROM WFL No MTP Flexion Active (degrees) 40 MTP Extension Active (degrees) 20 Left Great Toe Toe ROM WFL No MTP Flexion Active (degrees) 45 MTP Extension Active (degrees) 18 Toes ROM Limitations Toe ROM Limitations Soft Tissue Tightness PT-OP-M Strength Start: 05/08/20 12:06 Freq: Status: Active Protocol: Document 05/08/20 12:06 (Rec: 05/08/20 12:34 [email or web address]) Ankle/Foot Strength Ankle and Foot Manual Muscle Testing Right Dorsiflexion (L4) 5 Normal Plantarflexion (S1) 5 Normal Inversion 5 Normal Eversion (S1) 5 Normal Comments single calf raise = 33 times without pain Left Dorsiflexion (L4) 5 Normal Plantarflexion (S1) 5 Normal Inversion 5 Normal Eversion (S1) 5 Normal Comments single calf raise = 33 times without pain PT-OP-Q Treatments Start: 05/08/20 12:06 Freq: Status: Active Protocol: Document 06/16/20 11:15 (Rec: 06/16/20 12:11 [id number]) Cardio Equipment Bicycle (Upright) Duration (Minutes) 8 Resistance 8 Therapeutic Exercises Standing Exercises ankle dorsiflexoin Standing Exercise Name back against wall Side bilateral Reps/Minutes 12x 3 Comments with knee extension uneven surface Standing Exercise Name SLS at blue foam Side bilateral Reps/Minutes 8 mins ankle board Standing Exercise Name sagittal and lateral Side bilateral Reps/Minutes 2 mins calf stretches Standing Exercise Name gastro and soleus Side bilateral Equipment Used on stairs Comments pinching sensation at ankle at the bottom Manual Therapy Treatment Soft Tissue Mobilization gastro Mobilization Type Sustained Pressure,Trigger Point Release Intensity/Depth Moderate Body Position Prone achilles tendon Mobilization Type Sustained Pressure,Trigger Point Release Intensity/Depth Moderate Body Position Sitting Comments less tenderness today at L achilles tendon but increased on R tendon PT-OP-T Assessment and Plan Start: 05/08/20 12:06 Freq: Status: Active Protocol: Document 06/16/20 11:15 (Rec: 06/16/20 12:11 [id number]) Physical Therapy Assessment Goals hiking Impairment unable to hike d/t heel pain Long-Term Goal (LTG) pt will be able to hike again without increase in heel pain LTG Duration 8 weeks gait Impairment pt has poor gait mechanics Band Splicer Goal (LTG) pt will be able to walk with increased forefoot push off and decreased heel strike to improve her stride length and gait mechanics. ROM Impairment pt has very lmited ankle and toe mobility Short Term Goal (STG) pt will show improved DF by 5 degrees and big toe extension by 10 degrees to improve her gait mechanics STG Duration 4 weeks Band Splicer Goal (LTG) pt will show improved DF by 10 degrees and big toe extension by 20 degrees to improve her gait mechanics LTG Duration 8 weeks heel pain Impairment B heel pain =6/10 Short Term Goal (STG) Pt will have no more than 4/10 heel pain in the morning and after sitting for a long period of time. STG Duration 4 weeks Long-Term Goal (LTG) Pt will have no more than 2/10 heel pain in the morning and after sitting for a long period of time. LTG Duration 8 weeks Assessment Summary Assessment Pt feels better today compared to her last visit. Pt overall still has very poor ankle mobility but good strength. Added ankle DF strengthening ex today. Pt is now 1/wk x 6 weeks since she has been very compliant to her HEP. Physical Therapy Plan Frequency and Duration Frequency of Treatment 2x/x2wk then 1x 6 wk Duration of Treatment 8 weeks Plan of Care Start Date 05/08/20 Plan of Care End Date 07/07/20 Therapeutic Interventions Therapeutic Interventions Balance Training,Gait Training ,Home Exercise Program,Joint Mobilizations,Manual Therapy, Neuromuscular Re-education, Orthotic/Prosthetic Management ,Patient/Caregiver Education, Self-Care/Home Management,Soft Tissue Mobilization,Taping, Therapeutic Activities, Therapeutic Exercises Modalities Cold Pack/Ice Massage,Electric Stimulation,Hot Packs, Infrared Therapy,Ultrasound Next Visit Focus/Plan Next Note Type Treatment Note Next Visit Plan STM on achilles calf stretch toe stretch towel scrunch foot pronation gait training toe push off
--- NOTE | 2020-06-23 12:06 | PT.OTN ---
Current Diagnoses Pain in unspecified ankle and joints of unspecified foot (06/23/20) Physical Therapy Treatment Note PT-OP-A Visit Information Start: 05/08/20 12:06 Freq: Status: Active Protocol: Document 06/23/20 11:13 (Rec: 06/23/20 12:06 [id number]) Out-Patient Physical Therapy Visit Information Visit Information Visit Type Treatment Note Visit Start Time 11:16 Visit Stop Time 12:00 Total Visit Minutes 44 Visit Number 08/24 Number of DOOR CLAMPER Visits 0 PT-OP-B Current Condition Start: 05/08/20 12:06 Freq: Status: Active Protocol: Document 05/08/20 12:06 HH (Rec: 05/08/20 12:34 [email or web address]) Current Condition History of Current Condition Onset Date 4 years ago Current Complaints B heel pain, ankle stiffness History of Current Condition Senia is a 54 year old woman with bialteral heel pain 6/10 and ankle stiffness. For the past 4 years, she has had bilateral ankle pain that has been getting worse. She notices the pain the most when she wakes up in the morning, after staying in one position for too long and walking down hill; better with stretches but only with temporary reliefs. Shes describes the pain as shooting from the Achilles tendon. Pain has waken her up every night. She denies lower extremity weakness, numbness. She is a very active woman and works out almost daily but notices she can only do 60% of what she used to do. Her current routine inlcudes : 3 miles walk/day and 30 mins MELI workout 4 times a week but she cannot hike at this point d/t significant heel pain. Prior Treatments and Tests X-ray on B ankles R= No fractures or dislocations. Ankle mortise is normally aligned. No suspicious bony lesions. L= L No fractures or dislocations. Ankle mortise is normally aligned. No suspicious bony lesions. Small plantar calcaneal bone spur is seen. Treatment Goals Patient/Caregiver Goals 1. to be able to walk without heel pain 2. to improve her ankle stiffness. PT-OP-C Subjective Start: 05/08/20 12:06 Freq: Status: Active Protocol: Document 06/23/20 11:13 HH (Rec: 06/23/20 12:06 [email or web address]) OP-PT Subjective Patient Comments Patient Comments My achilles havent waken me up for the past couple nights. Brenda been taking it slow for my walk. Patient Reported Progress Improving PT-OP-D Balance Start: 05/08/20 12:06 Freq: Status: Active Protocol: Document 05/08/20 12:06 HH (Rec: 05/08/20 12:34 [email or web address]) Balance Tests Single Limb Standing Single Limb- Right >60 Single Limb- Left >60 PT-OP-F Manual Assessment Start: 05/08/20 12:06 Freq: Status: Active Protocol: Document 05/08/20 12:06 HH (Rec: 05/08/20 12:34 [email or web address]) Manual Assessments Soft Tissue Assessment Soft Tissue Mobility Assessment significant tenderness and stiftness to pressure at B achilles tendons significant calluses noted at B heels Joint Mobility Assessment Joint Mobility Assessment decreased mid foot pronation mobility and calcaneal inversion and eversion mobility PT-OP-G Mobility & Gait Start: 05/08/20 12:06 Freq: Status: Active Protocol: Document 05/08/20 12:06 HH (Rec: 05/08/20 12:34 [email or web address]) OP Gait Assessment Comments Gait Comments pt walked with a hard heel strike bilaterally during initial contact she also has dec push off through forefoot at preswing. PT-OP-J Posture/Palpation/Skin Start: 05/08/20 12:06 Freq: Status: Active Protocol: Document 05/08/20 12:06 (Rec: 05/08/20 12:34 [email or web address]) Posture Evaluation Position Standing Evaluation View Anterior Ankle/Foot Posture (L) Plantarflexed,(R) Plantarflexed Foot Arch (L) High Arch,(R) High Arch Toe Posture (L) Clawed Toes,(R) Clawed Toes PT-OP-K Range of Motion Start: 05/08/20 12:06 Freq: Status: Active Protocol: Document 05/08/20 12:06 HH (Rec: 05/08/20 12:34 [email or web address]) Ankle and Foot Goniometric Range of Motion Ankle and Foot Right Active Ankle/Foot ROM WFL No Testing Position Supine Dorsiflexion with Knee Flexed 8 Dorsiflexion with Knee Extended 5 Plantarflexion 72 Inversion 34 Eversion 22 Left Active Ankle/Foot ROM WFL No Testing Position Supine Dorsiflexion with Knee Flexed 12 Dorsiflexion with Knee Extended 3 Plantarflexion 62 Inversion 30 Eversion 24 Ankle and Foot ROM Limitations ROM Limitations Soft Tissue Tightness Toe Range of Motion Toe Right Great Toe Toe ROM WFL No MTP Flexion Active (degrees) 40 MTP Extension Active (degrees) 20 Left Great Toe Toe ROM WFL No MTP Flexion Active (degrees) 45 MTP Extension Active (degrees) 18 Toes ROM Limitations Toe ROM Limitations Soft Tissue Tightness PT-OP-M Strength Start: 05/08/20 12:06 Freq: Status: Active Protocol: Document 05/08/20 12:06 (Rec: 05/08/20 12:34 [email or web address]) Ankle/Foot Strength Ankle and Foot Manual Muscle Testing Right Dorsiflexion (L4) 5 Normal Plantarflexion (S1) 5 Normal Inversion 5 Normal Eversion (S1) 5 Normal Comments single calf raise = 33 times without pain Left Dorsiflexion (L4) 5 Normal Plantarflexion (S1) 5 Normal Inversion 5 Normal Eversion (S1) 5 Normal Comments single calf raise = 33 times without pain PT-OP-Q Treatments Start: 05/08/20 12:06 Freq: Status: Active Protocol: Document 06/23/20 11:13 (Rec: 06/23/20 12:06 [id number]) Cardio Equipment Bicycle (Upright) Duration (Minutes) 8 Resistance 8 Gym Equipment Shuttle Recovery heel raises Resistance 50 Shuttle Recovery Platform Stable Reps/Time 15x2 Therapeutic Exercises Standing Exercises ankle dorsiflexoin Standing Exercise Name back against wall Side bilateral Reps/Minutes 12x 3 Comments with knee extension uneven surface Standing Exercise Name balance discs Side bilateral Reps/Minutes 8 mins Comments normal stance and staggered stance ankle board Standing Exercise Name sagittal and lateral Side bilateral Reps/Minutes 2 mins calf stretches Standing Exercise Name gastro and soleus Side bilateral Equipment Used on stairs Comments down to neutral only d/t pain at bottom MTP extension Side bilateral Manual Therapy Treatment Soft Tissue Mobilization gastro Mobilization Type Sustained Pressure,Trigger Point Release Intensity/Depth Moderate Body Position Prone PT-OP-T Assessment and Plan Start: 05/08/20 12:06 Freq: Status: Active Protocol: Document 06/23/20 11:13 (Rec: 06/23/20 12:06 [id number]) Physical Therapy Assessment Goals hiking Impairment unable to hike d/t heel pain Application Architect Manager Goal (LTG) pt will be able to hike again without increase in heel pain LTG Duration 8 weeks gait Impairment pt has poor gait mechanics Application Architect Manager Goal (LTG) pt will be able to walk with increased forefoot push off and decreased heel strike to improve her stride length and gait mechanics. ROM Impairment pt has very lmited ankle and toe mobility Short Term Goal (STG) pt will show improved DF by 5 degrees and big toe extension by 10 degrees to improve her gait mechanics STG Duration 4 weeks Application Architect Manager Goal (LTG) pt will show improved DF by 10 degrees and big toe extension by 20 degrees to improve her gait mechanics LTG Duration 8 weeks heel pain Impairment B heel pain =6/10 Short Term Goal (STG) Pt will have no more than 4/10 heel pain in the morning and after sitting for a long period of time. STG Duration 4 weeks Application Architect Manager Goal (LTG) Pt will have no more than 2/10 heel pain in the morning and after sitting for a long period of time. LTG Duration 8 weeks Assessment Summary Assessment pt reports her pain did not wake her up for the past few nights for the very first time . No flare ups noted since last week. However, she still has pain with calf raises and modified that down to neutral position only. Physical Therapy Plan Frequency and Duration Frequency of Treatment 2x/x2wk then 1x 6 wk Duration of Treatment 8 weeks Plan of Care Start Date 05/08/20 Plan of Care End Date 07/07/20 Next Visit Focus/Plan Next Note Type Treatment Note Next Visit Plan STM on achilles calf stretch toe stretch towel scrunch foot pronation gait training toe push off
--- NOTE | 2020-06-30 12:09 | PT.OTN ---
Current Diagnoses Pain in unspecified ankle and joints of unspecified foot (06/30/20) Physical Therapy Treatment Note PT-OP-A Visit Information Start: 05/08/20 12:06 Freq: Status: Active Protocol: Document 06/30/20 11:03 (Rec: 06/30/20 12:09 [id number]) Out-Patient Physical Therapy Visit Information Visit Information Visit Type Treatment Note Visit Start Time 11:16 Visit Stop Time 12:01 Total Visit Minutes 45 Visit Number 8/12 Number of MOTOR TESTER Visits 0 PT-OP-B Current Condition Start: 05/08/20 12:06 Freq: Status: Active Protocol: Document 05/08/20 12:06 HH (Rec: 05/08/20 12:34 [email or web address]) Current Condition History of Current Condition Onset Date 4 years ago Current Complaints B heel pain, ankle stiffness History of Current Condition Senia is a 54 year old woman with bialteral heel pain 6/10 and ankle stiffness. For the past 4 years, she has had bilateral ankle pain that has been getting worse. She notices the pain the most when she wakes up in the morning, after staying in one position for too long and walking down hill; better with stretches but only with temporary reliefs. Shes describes the pain as shooting from the Achilles tendon. Pain has waken her up every night. She denies lower extremity weakness, numbness. She is a very active woman and works out almost daily but notices she can only do 60% of what she used to do. Her current routine inlcudes : 3 miles walk/day and 30 mins MELI workout 4 times a week but she cannot hike at this point d/t significant heel pain. Prior Treatments and Tests X-ray on B ankles R= No fractures or dislocations. Ankle mortise is normally aligned. No suspicious bony lesions. L= L No fractures or dislocations. Ankle mortise is normally aligned. No suspicious bony lesions. Small plantar calcaneal bone spur is seen. Treatment Goals Patient/Caregiver Goals 1. to be able to walk without heel pain 2. to improve her ankle stiffness. PT-OP-C Subjective Start: 05/08/20 12:06 Freq: Status: Active Protocol: Document 06/30/20 11:03 HH (Rec: 06/30/20 12:09 [id number]) OP-PT Subjective Patient Comments Patient Comments Im sleeping pretty well so far and the night pain seems to be better. I havent had any flare ups so far. Patient Reported Progress Improving PT-OP-D Balance Start: 05/08/20 12:06 Freq: Status: Active Protocol: Document 05/08/20 12:06 HH (Rec: 05/08/20 12:34 [email or web address]) Balance Tests Single Limb Standing Single Limb- Right >60 Single Limb- Left >60 PT-OP-F Manual Assessment Start: 05/08/20 12:06 Freq: Status: Active Protocol: Document 05/08/20 12:06 HH (Rec: 05/08/20 12:34 [email or web address]) Manual Assessments Soft Tissue Assessment Soft Tissue Mobility Assessment significant tenderness and stiftness to pressure at B achilles tendons significant calluses noted at B heels Joint Mobility Assessment Joint Mobility Assessment decreased mid foot pronation mobility and calcaneal inversion and eversion mobility PT-OP-G Mobility & Gait Start: 05/08/20 12:06 Freq: Status: Active Protocol: Document 05/08/20 12:06 HH (Rec: 05/08/20 12:34 [email or web address]) OP Gait Assessment Comments Gait Comments pt walked with a hard heel strike bilaterally during initial contact she also has dec push off through forefoot at preswing. PT-OP-J Posture/Palpation/Skin Start: 05/08/20 12:06 Freq: Status: Active Protocol: Document 05/08/20 12:06 HH (Rec: 05/08/20 12:34 [email or web address]) Posture Evaluation Position Standing Evaluation View Anterior Ankle/Foot Posture (L) Plantarflexed,(R) Plantarflexed Foot Arch (L) High Arch,(R) High Arch Toe Posture (L) Clawed Toes,(R) Clawed Toes PT-OP-K Range of Motion Start: 05/08/20 12:06 Freq: Status: Active Protocol: Document 05/08/20 12:06 HH (Rec: 05/08/20 12:34 [email or web address]) Ankle and Foot Goniometric Range of Motion Ankle and Foot Right Active Ankle/Foot ROM WFL No Testing Position Supine Dorsiflexion with Knee Flexed 8 Dorsiflexion with Knee Extended 5 Plantarflexion 72 Inversion 34 Eversion 22 Left Active Ankle/Foot ROM WFL No Testing Position Supine Dorsiflexion with Knee Flexed 12 Dorsiflexion with Knee Extended 3 Plantarflexion 62 Inversion 30 Eversion 24 Ankle and Foot ROM Limitations ROM Limitations Soft Tissue Tightness Toe Range of Motion Toe Right Great Toe Toe ROM WFL No MTP Flexion Active (degrees) 40 MTP Extension Active (degrees) 20 Left Great Toe Toe ROM WFL No MTP Flexion Active (degrees) 45 MTP Extension Active (degrees) 18 Toes ROM Limitations Toe ROM Limitations Soft Tissue Tightness PT-OP-M Strength Start: 05/08/20 12:06 Freq: Status: Active Protocol: Document 05/08/20 12:06 (Rec: 05/08/20 12:34 [email or web address]) Ankle/Foot Strength Ankle and Foot Manual Muscle Testing Right Dorsiflexion (L4) 5 Normal Plantarflexion (S1) 5 Normal Inversion 5 Normal Eversion (S1) 5 Normal Comments single calf raise = 33 times without pain Left Dorsiflexion (L4) 5 Normal Plantarflexion (S1) 5 Normal Inversion 5 Normal Eversion (S1) 5 Normal Comments single calf raise = 33 times without pain PT-OP-Q Treatments Start: 05/08/20 12:06 Freq: Status: Active Protocol: Document 06/30/20 11:03 (Rec: 06/30/20 12:09 [id number]) Gym Equipment Shuttle Recovery heel raises Resistance 75#, 100# Shuttle Recovery Platform Stable Reps/Time no discomfort noted SL squat Resistance 75# Shuttle Recovery Platform Stable Reps/Time 15x2 Therapeutic Exercises Standing Exercises calf raises Standing Exercise Name on stairs Side bilateral Comments down to neutral point only ankle dorsiflexoin Standing Exercise Name back against wall Side bilateral Reps/Minutes 12x 3 Comments with knee extension uneven surface Standing Exercise Name balance discs Side bilateral Reps/Minutes 8 mins Comments normal stance and staggered stance calf stretches Standing Exercise Name gastro and soleus Side bilateral Equipment Used on stairs Comments down to neutral only d/t pain at bottom MTP extension Side bilateral Manual Therapy Treatment Soft Tissue Mobilization gastro Mobilization Type Sustained Pressure,Trigger Point Release Intensity/Depth Moderate Body Position Prone achilles tendon Mobilization Type Sustained Pressure,Trigger Point Release Intensity/Depth Moderate Body Position Sitting Comments less tenderness today at L achilles tendon but increased on R tendon PT-OP-T Assessment and Plan Start: 05/08/20 12:06 Freq: Status: Active Protocol: Document 06/30/20 11:03 (Rec: 06/30/20 12:09 [id number]) Physical Therapy Assessment Goals hiking Impairment unable to hike d/t heel pain [facility] Goal (LTG) pt will be able to hike again without increase in heel pain LTG Duration 8 weeks gait Impairment pt has poor gait mechanics Garment Manufacturing 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 ROM Impairment pt has very lmited ankle and toe mobility Short Term Goal (STG) pt will show improved DF by 5 degrees and big toe extension by 10 degrees to improve her gait mechanics STG Duration 4 weeks Gar[employer] Manufacturing Supervisor Goal (LTG) pt will show improved DF by 10 degrees and big toe extension by 20 degrees to improve her gait mechanics LTG Duration 8 weeks heel pain Impairment B heel pain =6/10 Short Term Goal (STG) Pt will have no more than 4/10 heel pain in the morning and after sitting for a long period of time. STG Duration 4 weeks Garment Manufacturing Supervisor Goal (LTG) Pt will have no more than 2/10 heel pain in the morning and after sitting for a long period of time. LTG Duration 8 weeks Assessment Summary Assessment pt's night pain has been gone and sleep has improved. She still has ongoing pain in the morning 5/10 and 3/10 during the day. Recommended pt to try her superfeet for her morning walk only. Will reassess next visit. Physical Therapy Plan Frequency and Duration Frequency of Treatment 2x/x2wk then 1x 6 wk Duration of Treatment 8 weeks Plan of Care Start Date 05/08/20 Plan of Care End Date 07/07/20 Therapeutic Interventions Therapeutic Interventions Balance Training,Gait Training ,Home Exercise Program,Joint Mobilizations,Manual Therapy, Neuromuscular Re-education, Orthotic/Prosthetic Management ,Patient/Caregiver Education, Self-Care/Home Management,Soft Tissue Mobilization,Taping, Therapeutic Activities, Therapeutic Exercises Modalities Cold Pack/Ice Massage,Electric Stimulation,Hot Packs, Infrared Therapy,Ultrasound Next Visit Focus/Plan Next Note Type Progress Note Next Visit Plan STM on achilles calf stretch toe stretch towel scrunch foot pronation gait training toe push off
--- NOTE | 2020-07-07 12:49 | PT.OPPOC ---
Physical, Occupational & Speech Therapy At [facility] Current Diagnoses Pain in unspecified ankle and joints of unspecified foot (07/07/20) Visit Care Team Role Provider Type Ellen Webb MD Attending Provider Physician Primary Care Provider Referring Provider Specialty: Family Practice Address: [address] [place] [address], [place], [address] Email: [email or web address] Plan Of Care PT-OP-T Assessment and Plan Start: 05/08/20 12:06 Freq: Status: Active Protocol: Document 07/07/20 12:38 HH (Rec: 07/07/20 12:49 HH [email or web address]) Physical Therapy Assessment Goals hiking Impairment unable to hike d/t heel pain Short Term Goal (STG) 07/07 in progress pt has not been hiking lately Salicylic Acid Blender Goal (LTG) pt will be able to hike again without increase in heel pain LTG Duration 8 weeks gait Impairment pt has poor gait mechanics Salicylic Acid Blender Goal (LTG) pt will be able to walk with increased forefoot push off and decreased heel strike to improve her stride length and gait mechanics. ROM Impairment pt has very lmited ankle and toe mobility Short Term Goal (STG) 07/07 cont in progress pt shows improved DF to 3- 5 degrees and big toe extension by 10 degrees to improve her gait mechanics STG Duration 4 weeks Salicylic Acid Blender Goal (LTG) pt will show improved DF by 10 degrees and big toe extension by 20 degrees to improve her gait mechanics LTG Duration 8 weeks heel pain Impairment B heel pain =6/10 Short Term Goal (STG) 525 goal met Pt has no more than 4/10 heel pain in the morning and after sitting for a long period of time. STG Duration 4 weeks Salicylic Acid Blender Goal (LTG) Pt will have no more than 2/10 heel pain in the morning and after sitting for a long period of time. LTG Duration 8 weeks Progress Towards Goals Progress Towards Goals Slow Progress due to Activity Tolerance,Slow Progress - Other Assessment Summary Assessment Pt reports her pain is down to 4/10 for both heels consistently, along with improved sleep. pt also started using superfeet and that has been helpful. Overall , pt shows slight improvement on ankle ROM. Her rehab progress has been slow is possibly d/t her need for daily 5 miles walk. Did recommend pt to replace walking to biking if possible. However, pt will continue benefit from skilled therapy to improve her achilles tendon flexibility and strength Physical Therapy Plan Frequency and Duration Frequency of Treatment Every Other Week Duration of Treatment 10 weeks Plan of Care Start Date 07/07/20 Plan of Care End Date 09/20/20 Therapeutic Interventions Therapeutic Interventions Balance Training,Gait Training ,Home Exercise Program,Joint Mobilizations,Manual Therapy, Neuromuscular Re-education, Orthotic/Prosthetic Management ,Patient/Caregiver Education, Self-Care/Home Management,Soft Tissue Mobilization,Taping, Therapeutic Activities, Therapeutic Exercises Modalities Cold Pack/Ice Massage,Electric Stimulation,Hot Packs, Infrared Therapy,Ultrasound Next Visit Focus/Plan Next Note Type Progress Note Next Visit Plan STM on achilles calf stretch toe stretch towel scrunch foot pronation gait training toe push off Plan of Care Dates Plan of Care Start Date 07/07/20 Plan of Care End Date 09/20/20 Electronically Signed by: Kristian Banuelos, PT 07/07/20 8319 Please Sign and Return: I have reviewed this Plan of Care and certify that the skilled therapy services above are required to meet the patient?s needs. Physician Signature Date Printed Name and Credentials Clinical Instructor Signature Printed Name and Credentials
--- NOTE | 2020-07-07 12:50 | PT.OTN ---
Current Diagnoses Pain in unspecified ankle and joints of unspecified foot (07/07/20) Physical Therapy Treatment Note PT-OP-A Visit Information Start: 05/08/20 12:06 Freq: Status: Active Protocol: Document 07/07/20 12:38 HH (Rec: 07/07/20 12:49 [email or web address]) Out-Patient Physical Therapy Visit Information Visit Information Visit Type Treatment Note Visit Start Time 11:15 Visit Stop Time 12:00 Total Visit Minutes 45 Visit Number 9/ Number of PROJECT EXECUTIVE Visits 0 PT-OP-B Current Condition Start: 05/08/20 12:06 Freq: Status: Active Protocol: Document 05/08/20 12:06 HH (Rec: 05/08/20 12:34 HH [email or web address]) Current Condition History of Current Condition Onset Date 4 years ago Current Complaints B heel pain, ankle stiffness History of Current Condition Senia is a 54 year old woman with bialteral heel pain 6/10 and ankle stiffness. For the past 4 years, she has had bilateral ankle pain that has been getting worse. She notices the pain the most when she wakes up in the morning, after staying in one position for too long and walking down hill; better with stretches but only with temporary reliefs. Shes describes the pain as shooting from the Achilles tendon. Pain has waken her up every night. She denies lower extremity weakness, numbness. She is a very active woman and works out almost daily but notices she can only do 60% of what she used to do. Her current routine inlcudes : 3 miles walk/day and 30 mins MELI workout 4 times a week but she cannot hike at this point d/t significant heel pain. Prior Treatments and Tests X-ray on B ankles R= No fractures or dislocations. Ankle mortise is normally aligned. No suspicious bony lesions. L= L No fractures or dislocations. Ankle mortise is normally aligned. No suspicious bony lesions. Small plantar calcaneal bone spur is seen. Treatment Goals Patient/Caregiver Goals 1. to be able to walk without heel pain 2. to improve her ankle stiffness. PT-OP-C Subjective Start: 05/08/20 12:06 Freq: Status: Active Protocol: Document 07/07/20 12:38 HH (Rec: 07/07/20 12:49 [email or web address]) OP-PT Subjective Patient Comments Patient Comments Brenda been sleeping well for the past week and has been using superfeet to do my morning walk and it feels pretty good. My pain is 4/10 in general Patient Reported Progress Improving PT-OP-D Balance Start: 05/08/20 12:06 Freq: Status: Active Protocol: Document 05/08/20 12:06 HH (Rec: 05/08/20 12:34 [email or web address]) Balance Tests Single Limb Standing Single Limb- Right >60 Single Limb- Left >60 PT-OP-F Manual Assessment Start: 05/08/20 12:06 Freq: Status: Active Protocol: Document 05/08/20 12:06 HH (Rec: 05/08/20 12:34 [email or web address]) Manual Assessments Soft Tissue Assessment Soft Tissue Mobility Assessment significant tenderness and stiftness to pressure at B achilles tendons significant calluses noted at B heels Joint Mobility Assessment Joint Mobility Assessment decreased mid foot pronation mobility and calcaneal inversion and eversion mobility PT-OP-G Mobility & Gait Start: 05/08/20 12:06 Freq: Status: Active Protocol: Document 05/08/20 12:06 HH (Rec: 05/08/20 12:34 [email or web address]) OP Gait Assessment Comments Gait Comments pt walked with a hard heel strike bilaterally during initial contact she also has dec push off through forefoot at preswing. PT-OP-J Posture/Palpation/Skin Start: 05/08/20 12:06 Freq: Status: Active Protocol: Document 05/08/20 12:06 HH (Rec: 05/08/20 12:34 [email or web address]) Posture Evaluation Position Standing Evaluation View Anterior Ankle/Foot Posture (L) Plantarflexed,(R) Plantarflexed Foot Arch (L) High Arch,(R) High Arch Toe Posture (L) Clawed Toes,(R) Clawed Toes PT-OP-K Range of Motion Start: 05/08/20 12:06 Freq: Status: Active Protocol: Document 07/07/20 12:38 HH (Rec: 07/07/20 12:49 HH [email or web address]) Ankle and Foot Goniometric Range of Motion Ankle and Foot Right Active Ankle/Foot ROM WFL No Testing Position Supine Dorsiflexion with Knee Flexed 9 Dorsiflexion with Knee Extended 6 Plantarflexion 72 Inversion 34 Eversion 22 Left Active Ankle/Foot ROM WFL No Testing Position Supine Dorsiflexion with Knee Flexed 12 Dorsiflexion with Knee Extended 7 Plantarflexion 62 Inversion 30 Eversion 24 Toe Range of Motion Toe Right Great Toe Toe ROM WFL No MTP Flexion Active (degrees) 40 MTP Extension Active (degrees) 24 Left Great Toe Toe ROM WFL No MTP Flexion Active (degrees) 45 MTP Extension Active (degrees) 28 PT-OP-M Strength Start: 05/08/20 12:06 Freq: Status: Active Protocol: Document 05/08/20 12:06 (Rec: 05/08/20 12:34 [email or web address]) Ankle/Foot Strength Ankle and Foot Manual Muscle Testing Right Dorsiflexion (L4) 5 Normal Plantarflexion (S1) 5 Normal Inversion 5 Normal Eversion (S1) 5 Normal Comments single calf raise = 33 times without pain Left Dorsiflexion (L4) 5 Normal Plantarflexion (S1) 5 Normal Inversion 5 Normal Eversion (S1) 5 Normal Comments single calf raise = 33 times without pain PT-OP-Q Treatments Start: 05/08/20 12:06 Freq: Status: Active Protocol: Document 07/07/20 12:38 HH (Rec: 07/07/20 12:49 [email or web address]) Therapeutic Exercises Sitting Exercises ankle DF Equipment Used on half foam roller Reps/Minutes 10 x 2 Comments for HEP Standing Exercises single leg calf raise Side bilateral Reps/Minutes 8 x 2 Comments for hEP calf raises Standing Exercise Name on stairs Side bilateral Comments down to neutral point only ankle dorsiflexoin Standing Exercise Name back against wall Side bilateral Reps/Minutes 15 sec x 5 Comments with knee extension, MTP extension (towel under) calf stretches Standing Exercise Name gastro and soleus Side bilateral Equipment Used on stairs Comments down to neutral only d/t pain at bottom MTP extension Side bilateral Manual Therapy Treatment Soft Tissue Mobilization gastro Mobilization Type Sustained Pressure,Trigger Point Release Intensity/Depth Moderate Body Position Prone achilles tendon Mobilization Type Sustained Pressure,Trigger Point Release Intensity/Depth Moderate Body Position Sitting Comments less tenderness today at L achilles tendon but increased on R tendon Joint Mobilizations post glide Direction post Grade III Body Position Supine Comments post glide of mortis B foot Grade III Body Position Supine Comments mid foot pronation calcaneal pronation PT-OP-T Assessment and Plan Start: 05/08/20 12:06 Freq: Status: Active Protocol: Document 07/07/20 12:38 HH (Rec: 07/07/20 12:49 HH [email or web address]) Physical Therapy Assessment Goals hiking Impairment unable to hike d/t heel pain Short Term Goal (STG) 07/07 in progress pt has not been hiking lately Corporate Receptionist Goal (LTG) pt will be able to hike again without increase in heel pain LTG Duration 8 weeks gait Impairment pt has poor gait mechanics [facility] Goal (LTG) pt will be able to walk with increased forefoot push off and decreased heel strike to improve her stride length and gait mechanics. ROM Impairment pt has very lmited ankle and toe mobility Short Term Goal (STG) 07/07 cont in progress pt shows improved DF to 3- 5 degrees and big toe extension by 10 degrees to improve her gait mechanics STG Duration 4 weeks [facility] Goal (LTG) pt will show improved DF by 10 degrees and big toe extension by 20 degrees to improve her gait mechanics LTG Duration 8 weeks heel pain Impairment B heel pain =6/10 Short Term Goal (STG) 07/07 goal met Pt has no more than 4/10 heel pain in the morning and after sitting for a long period of time. STG Duration 4 weeks Corporate Receptionist Goal (LTG) Pt will have no more than 2/10 heel pain in the morning and after sitting for a long period of time. LTG Duration 8 weeks Progress Towards Goals Progress Towards Goals Slow Progress due to Activity Tolerance,Slow Progress - Other Assessment Summary Assessment Pt reports her pain is down to 4/10 for both heels consistently, along with improved sleep. pt also started using superfeet and that has been helpful. Overall , pt shows slight improvement on ankle ROM. Her rehab progress has been slow is possibly d/t her need for daily 5 miles walk. Did recommend pt to replace walking to biking if possible. However, pt will continue benefit from skilled therapy to improve her achilles tendon flexibility and strength Physical Therapy Plan Frequency and Duration Frequency of Treatment Every Other Week Duration of Treatment 10 weeks Plan of Care Start Date 07/07/20 Plan of Care End Date 09/20/20 Therapeutic Interventions Therapeutic Interventions Balance Training,Gait Training ,Home Exercise Program,Joint Mobilizations,Manual Therapy, Neuromuscular Re-education, Orthotic/Prosthetic Management ,Patient/Caregiver Education, Self-Care/Home Management,Soft Tissue Mobilization,Taping, Therapeutic Activities, Therapeutic Exercises Modalities Cold Pack/Ice Massage,Electric Stimulation,Hot Packs, Infrared Therapy,Ultrasound Next Visit Focus/Plan Next Note Type Progress Note Next Visit Plan STM on achilles calf stretch toe stretch towel scrunch foot pronation gait training toe push off
--- NOTE | 2020-07-21 12:08 | PT.OTN ---
Current Diagnoses Pain in unspecified ankle and joints of unspecified foot (07/21/20) Physical Therapy Treatment Note PT-OP-A Visit Information Start: 05/08/20 12:06 Freq: Status: Active Protocol: Document 07/21/20 11:16 HH (Rec: 07/21/20 12:07 [id number]) Out-Patient Physical Therapy Visit Information Visit Information Visit Type Treatment Note Visit Start Time 11:15 Visit Stop Time 12:01 Total Visit Minutes 46 Visit Number 11/24 Number of DIRECTOR HEALTH Visits 0 PT-OP-B Current Condition Start: 05/08/20 12:06 Freq: Status: Active Protocol: Document 05/08/20 12:06 HH (Rec: 05/08/20 12:34 [email or web address]) Current Condition History of Current Condition Onset Date 4 years ago Current Complaints B heel pain, ankle stiffness History of Current Condition Senia is a 54 year old woman with bialteral heel pain 6/10 and ankle stiffness. For the past 4 years, she has had bilateral ankle pain that has been getting worse. She notices the pain the most when she wakes up in the morning, after staying in one position for too long and walking down hill; better with stretches but only with temporary reliefs. Shes describes the pain as shooting from the Achilles tendon. Pain has waken her up every night. She denies lower extremity weakness, numbness. She is a very active woman and works out almost daily but notices she can only do 60% of what she used to do. Her current routine inlcudes : 3 miles walk/day and 30 mins MELI workout 4 times a week but she cannot hike at this point d/t significant heel pain. Prior Treatments and Tests X-ray on B ankles R= No fractures or dislocations. Ankle mortise is normally aligned. No suspicious bony lesions. L= L No fractures or dislocations. Ankle mortise is normally aligned. No suspicious bony lesions. Small plantar calcaneal bone spur is seen. Treatment Goals Patient/Caregiver Goals 1. to be able to walk without heel pain 2. to improve her ankle stiffness. PT-OP-C Subjective Start: 05/08/20 12:06 Freq: Status: Active Protocol: Document 07/21/20 11:16 HH (Rec: 07/21/20 12:07 [id number]) OP-PT Subjective Patient Comments Patient Comments Brenda been doing okay and started low impact workout class which is fine since there's jumping involved. My heel were hurting when i didnt do my HEP after my trip to [facility] Patient Reported Progress Same PT-OP-D Balance Start: 05/08/20 12:06 Freq: Status: Active Protocol: Document 05/08/20 12:06 HH (Rec: 05/08/20 12:34 HH [email or web address]) Balance Tests Single Limb Standing Single Limb- Right >60 Single Limb- Left >60 PT-OP-F Manual Assessment Start: 05/08/20 12:06 Freq: Status: Active Protocol: Document 05/08/20 12:06 HH (Rec: 05/08/20 12:34 HH [email or web address]) Manual Assessments Soft Tissue Assessment Soft Tissue Mobility Assessment significant tenderness and stiftness to pressure at B achilles tendons significant calluses noted at B heels Joint Mobility Assessment Joint Mobility Assessment decreased mid foot pronation mobility and calcaneal inversion and eversion mobility PT-OP-G Mobility & Gait Start: 05/08/20 12:06 Freq: Status: Active Protocol: Document 05/08/20 12:06 HH (Rec: 05/08/20 12:34 HH [email or web address]) OP Gait Assessment Comments Gait Comments pt walked with a hard heel strike bilaterally during initial contact she also has dec push off through forefoot at preswing. PT-OP-J Posture/Palpation/Skin Start: 05/08/20 12:06 Freq: Status: Active Protocol: Document 05/08/20 12:06 HH (Rec: 05/08/20 12:34 HH [email or web address]) Posture Evaluation Position Standing Evaluation View Anterior Ankle/Foot Posture (L) Plantarflexed,(R) Plantarflexed Foot Arch (L) High Arch,(R) High Arch Toe Posture (L) Clawed Toes,(R) Clawed Toes PT-OP-K Range of Motion Start: 05/08/20 12:06 Freq: Status: Active Protocol: Document 07/07/20 12:38 HH (Rec: 07/07/20 12:49 HH [email or web address]) Ankle and Foot Goniometric Range of Motion Ankle and Foot Right Active Ankle/Foot ROM WFL No Testing Position Supine Dorsiflexion with Knee Flexed 9 Dorsiflexion with Knee Extended 6 Plantarflexion 72 Inversion 34 Eversion 22 Left Active Ankle/Foot ROM WFL No Testing Position Supine Dorsiflexion with Knee Flexed 12 Dorsiflexion with Knee Extended 7 Plantarflexion 62 Inversion 30 Eversion 24 Toe Range of Motion Toe Right Great Toe Toe ROM WFL No MTP Flexion Active (degrees) 40 MTP Extension Active (degrees) 24 Left Great Toe Toe ROM WFL No MTP Flexion Active (degrees) 45 MTP Extension Active (degrees) 28 PT-OP-M Strength Start: 05/08/20 12:06 Freq: Status: Active Protocol: Document 05/08/20 12:06 (Rec: 05/08/20 12:34 [email or web address]) Ankle/Foot Strength Ankle and Foot Manual Muscle Testing Right Dorsiflexion (L4) 5 Normal Plantarflexion (S1) 5 Normal Inversion 5 Normal Eversion (S1) 5 Normal Comments single calf raise = 33 times without pain Left Dorsiflexion (L4) 5 Normal Plantarflexion (S1) 5 Normal Inversion 5 Normal Eversion (S1) 5 Normal Comments single calf raise = 33 times without pain PT-OP-Q Treatments Start: 05/08/20 12:06 Freq: Status: Active Protocol: Document 07/21/20 11:16 HH (Rec: 07/21/20 12:07 [id number]) Cardio Equipment Bicycle (Upright) Duration (Minutes) 8 Resistance 8 Gym Equipment Shuttle Recovery heel raises Details SL Resistance #50 Shuttle Recovery Platform Stable Reps/Time no discomfort. Therapeutic Exercises Standing Exercises calf raises Standing Exercise Name on stairs Side bilateral Comments full ROM uneven surface Standing Exercise Name balance discs Side bilateral Reps/Minutes 8 mins Comments normal stance and staggered stance Orthotic/Prosthetic Management and Training Treatment Details of Training customed 2x 0.25inch cork made heel lift for each foot. Educated pt to use for outdoor walking, along with continuous stretching and strengthening in free time. PT-OP-T Assessment and Plan Start: 05/08/20 12:06 Freq: Status: Active Protocol: Document 07/21/20 11:16 HH (Rec: 07/21/20 12:07 [id number]) Physical Therapy Assessment Goals hiking Impairment unable to hike d/t heel pain Short Term Goal (STG) 07/07 in progress pt has not been hiking lately Program Attendant Goal (LTG) pt will be able to hike again without increase in heel pain LTG Duration 8 weeks gait Impairment pt has poor gait mechanics Longterm Goal (LTG) pt will be able to walk with increased forefoot push off and decreased heel strike to improve her stride length and gait mechanics. ROM Impairment pt has very lmited ankle and toe mobility Short Term Goal (STG) 07/07 cont in progress pt shows improved DF to 3- 5 degrees and big toe extension by 10 degrees to improve her gait mechanics STG Duration 4 weeks Program Attendant Goal (LTG) pt will show improved DF by 10 degrees and big toe extension by 20 degrees to improve her gait mechanics LTG Duration 8 weeks heel pain Impairment B heel pain =6/10 Short Term Goal (STG) 07/07 goal met Pt has no more than 4/10 heel pain in the morning and after sitting for a long period of time. STG Duration 4 weeks Program Attendant Goal (LTG) Pt will have no more than 2/10 heel pain in the morning and after sitting for a long period of time. LTG Duration 8 weeks Assessment Summary Assessment Pt's symptoms have been the same but she is able to tolerate calf raises on stair with full ROM today. Made custom heel lift 0.5 inch ( each foot) to deload her achilles tendons, and continue stretching and strengthening in the mean time. Physical Therapy Plan Frequency and Duration Frequency of Treatment Every Other Week Duration of Treatment 10 weeks Plan of Care Start Date 07/07/20 Plan of Care End Date 09/20/20 Therapeutic Interventions Therapeutic Interventions Balance Training,Gait Training ,Home Exercise Program,Joint Mobilizations,Manual Therapy, Neuromuscular Re-education, Orthotic/Prosthetic Management ,Patient/Caregiver Education, Self-Care/Home Management,Soft Tissue Mobilization,Taping, Therapeutic Activities, Therapeutic Exercises Modalities Cold Pack/Ice Massage,Electric Stimulation,Hot Packs, Infrared Therapy,Ultrasound Next Visit Focus/Plan Next Note Type Progress Note Next Visit Plan STM on achilles calf stretch toe stretch towel scrunch foot pronation gait training toe push off
--- NOTE | 2020-08-13 12:13 | PT.OTN ---
Current Diagnoses Pain in unspecified ankle and joints of unspecified foot (08/13/20) Physical Therapy Treatment Note PT-OP-A Visit Information Start: 05/08/20 12:06 Freq: Status: Active Protocol: Document 08/13/20 08:14 HH (Rec: 08/13/20 12:13 [id number]) Out-Patient Physical Therapy Visit Information Visit Information Visit Type Treatment Note Visit Start Time 08:16 Visit Stop Time 09:00 Total Visit Minutes 44 Visit Number 11/12 Number of SMT OPERATOR Visits 0 PT-OP-B Current Condition Start: 05/08/20 12:06 Freq: Status: Active Protocol: Document 05/08/20 12:06 HH (Rec: 05/08/20 12:34 HH [email or web address]) Current Condition History of Current Condition Onset Date 4 years ago Current Complaints B heel pain, ankle stiffness History of Current Condition Senia is a 54 year old woman with bialteral heel pain 6/10 and ankle stiffness. For the past 4 years, she has had bilateral ankle pain that has been getting worse. She notices the pain the most when she wakes up in the morning, after staying in one position for too long and walking down hill; better with stretches but only with temporary reliefs. Shes describes the pain as shooting from the Achilles tendon. Pain has waken her up every night. She denies lower extremity weakness, numbness. She is a very active woman and works out almost daily but notices she can only do 60% of what she used to do. Her current routine inlcudes : 3 miles walk/day and 30 mins MELI workout 4 times a week but she cannot hike at this point d/t significant heel pain. Prior Treatments and Tests X-ray on B ankles R= No fractures or dislocations. Ankle mortise is normally aligned. No suspicious bony lesions. L= L No fractures or dislocations. Ankle mortise is normally aligned. No suspicious bony lesions. Small plantar calcaneal bone spur is seen. Treatment Goals Patient/Caregiver Goals 1. to be able to walk without heel pain 2. to improve her ankle stiffness. PT-OP-C Subjective Start: 05/08/20 12:06 Freq: Status: Active Protocol: Document 08/13/20 08:14 HH (Rec: 08/13/20 12:13 [id number]) OP-PT Subjective Patient Comments Patient Comments Im doing okay so far for the past couple weeks until yesterday after i played spiked ball. It was hurting badly last night. But i was sleeping okay and walking okay since i saw you last time. Patient Reported Progress Same PT-OP-D Balance Start: 05/08/20 12:06 Freq: Status: Active Protocol: Document 05/08/20 12:06 HH (Rec: 05/08/20 12:34 [email or web address]) Balance Tests Single Limb Standing Single Limb- Right >60 Single Limb- Left >60 PT-OP-F Manual Assessment Start: 05/08/20 12:06 Freq: Status: Active Protocol: Document 05/08/20 12:06 HH (Rec: 05/08/20 12:34 [email or web address]) Manual Assessments Soft Tissue Assessment Soft Tissue Mobility Assessment significant tenderness and stiftness to pressure at B achilles tendons significant calluses noted at B heels Joint Mobility Assessment Joint Mobility Assessment decreased mid foot pronation mobility and calcaneal inversion and eversion mobility PT-OP-G Mobility & Gait Start: 05/08/20 12:06 Freq: Status: Active Protocol: Document 05/08/20 12:06 HH (Rec: 05/08/20 12:34 [email or web address]) OP Gait Assessment Comments Gait Comments pt walked with a hard heel strike bilaterally during initial contact she also has dec push off through forefoot at preswing. PT-OP-J Posture/Palpation/Skin Start: 05/08/20 12:06 Freq: Status: Active Protocol: Document 05/08/20 12:06 HH (Rec: 05/08/20 12:34 [email or web address]) Posture Evaluation Position Standing Evaluation View Anterior Ankle/Foot Posture (L) Plantarflexed,(R) Plantarflexed Foot Arch (L) High Arch,(R) High Arch Toe Posture (L) Clawed Toes,(R) Clawed Toes PT-OP-K Range of Motion Start: 05/08/20 12:06 Freq: Status: Active Protocol: Document 07/07/20 12:38 HH (Rec: 07/07/20 12:49 HH [email or web address]) Ankle and Foot Goniometric Range of Motion Ankle and Foot Right Active Ankle/Foot ROM WFL No Testing Position Supine Dorsiflexion with Knee Flexed 9 Dorsiflexion with Knee Extended 6 Plantarflexion 72 Inversion 34 Eversion 22 Left Active Ankle/Foot ROM WFL No Testing Position Supine Dorsiflexion with Knee Flexed 12 Dorsiflexion with Knee Extended 7 Plantarflexion 62 Inversion 30 Eversion 24 Toe Range of Motion Toe Right Great Toe Toe ROM WFL No MTP Flexion Active (degrees) 40 MTP Extension Active (degrees) 24 Left Great Toe Toe ROM WFL No MTP Flexion Active (degrees) 45 MTP Extension Active (degrees) 28 PT-OP-M Strength Start: 05/08/20 12:06 Freq: Status: Active Protocol: Document 05/08/20 12:06 (Rec: 05/08/20 12:34 [email or web address]) Ankle/Foot Strength Ankle and Foot Manual Muscle Testing Right Dorsiflexion (L4) 5 Normal Plantarflexion (S1) 5 Normal Inversion 5 Normal Eversion (S1) 5 Normal Comments single calf raise = 33 times without pain Left Dorsiflexion (L4) 5 Normal Plantarflexion (S1) 5 Normal Inversion 5 Normal Eversion (S1) 5 Normal Comments single calf raise = 33 times without pain PT-OP-Q Treatments Start: 05/08/20 12:06 Freq: Status: Active Protocol: Document 08/13/20 08:14 (Rec: 08/13/20 12:13 [id number]) Cardio Equipment Bicycle (Upright) Duration (Minutes) 8 Resistance 8 Gym Equipment Shuttle Recovery heel raises Details SL Resistance #50 Shuttle Recovery Platform Stable Reps/Time no discomfort. Therapeutic Exercises Standing Exercises calf raises Standing Exercise Name on stairs Side bilateral Reps/Minutes 10 x2 Comments full ROM, slight pain for 2nd set calf stretches Standing Exercise Name gastro and soleus Side bilateral Equipment Used on stairs Comments full ROM MTP extension Side bilateral Manual Therapy Treatment Soft Tissue Mobilization achilles tendon Mobilization Type Sustained Pressure,Trigger Point Release Intensity/Depth Moderate Body Position Sitting Comments reduced mid achilles bulge noted bilaterally. Joint Mobilizations post glide Direction post Grade III Body Position Supine Comments post glide of mortis PT-OP-T Assessment and Plan Start: 05/08/20 12:06 Freq: Status: Active Protocol: Document 08/13/20 08:14 (Rec: 08/13/20 12:13 [id number]) Physical Therapy Assessment Goals hiking Impairment unable to hike d/t heel pain Short Term Goal (STG) 07/07 in progress pt has not been hiking lately Correction Goal (LTG) pt will be able to hike again without increase in heel pain LTG Duration 8 weeks gait Impairment pt has poor gait mechanics [place] Goal (LTG) pt will be able to walk with increased forefoot push off and decreased heel strike to improve her stride length and gait mechanics. ROM Impairment pt has very lmited ankle and toe mobility Short Term Goal (STG) 07/07 cont in progress pt shows improved DF to 3- 5 degrees and big toe extension by 10 degrees to improve her gait mechanics STG Duration 4 weeks Wheelman Goal (LTG) pt will show improved DF by 10 degrees and big toe extension by 20 degrees to improve her gait mechanics LTG Duration 8 weeks heel pain Impairment B heel pain =6/10 Short Term Goal (STG) 07/07 goal met Pt has no more than 4/10 heel pain in the morning and after sitting for a long period of time. STG Duration 4 weeks [place]elman Goal (LTG) Pt will have no more than 2/10 heel pain in the morning and after sitting for a long period of time. LTG Duration 8 weeks Assessment Summary Assessment Pt was seen 4 weeks and she was able to manage symptoms so far except after she played spiked ball yesterday which aggravated her. Spent time educating pt to focus on isometric exercises if pain >5 /10, and progress to isotonic therex 15 reps 2-4 sets if pain <5/10. Add weight / intensity if pain continues to be <5/10. Physical Therapy Plan Frequency and Duration Frequency of Treatment Every Other Week Duration of Treatment 10 weeks Plan of Care Start Date 07/07/20 Plan of Care End Date 09/20/20 Therapeutic Interventions Therapeutic Interventions Balance Training,Gait Training ,Home Exercise Program,Joint Mobilizations,Manual Therapy, Neuromuscular Re-education, Orthotic/Prosthetic Management ,Patient/Caregiver Education, Self-Care/Home Management,Soft Tissue Mobilization,Taping, Therapeutic Activities, Therapeutic Exercises Modalities Cold Pack/Ice Massage,Electric Stimulation,Hot Packs, Infrared Therapy,Ultrasound Next Visit Focus/Plan Next Note Type Progress Note Next Visit Plan STM on achilles calf stretch toe stretch towel scrunch foot pronation gait training toe push off
--- NOTE | 2020-08-21 12:08 | PT.OTN ---
Current Diagnoses Pain in unspecified ankle and joints of unspecified foot (08/21/20) Physical Therapy Treatment Note PT-OP-A Visit Information Start: 05/08/20 12:06 Freq: Status: Active Protocol: Document 08/21/20 11:16 HH (Rec: 08/21/20 12:08 [id number]) Out-Patient Physical Therapy Visit Information Visit Information Visit Type Treatment Note Visit Start Time 11:17 Visit Stop Time 12:00 Total Visit Minutes 43 Visit Number 01/24 Number of CABLE TELEVISION TECHNICIAN Visits 0 PT-OP-B Current Condition Start: 05/08/20 12:06 Freq: Status: Active Protocol: Document 05/08/20 12:06 HH (Rec: 05/08/20 12:34 [email or web address]) Current Condition History of Current Condition Onset Date 4 years ago Current Complaints B heel pain, ankle stiffness History of Current Condition Senia is a 54 year old woman with bialteral heel pain 6/10 and ankle stiffness. For the past 4 years, she has had bilateral ankle pain that has been getting worse. She notices the pain the most when she wakes up in the morning, after staying in one position for too long and walking down hill; better with stretches but only with temporary reliefs. Shes describes the pain as shooting from the Achilles tendon. Pain has waken her up every night. She denies lower extremity weakness, numbness. She is a very active woman and works out almost daily but notices she can only do 60% of what she used to do. Her current routine inlcudes : 3 miles walk/day and 30 mins MELI workout 4 times a week but she cannot hike at this point d/t significant heel pain. Prior Treatments and Tests X-ray on B ankles R= No fractures or dislocations. Ankle mortise is normally aligned. No suspicious bony lesions. L= L No fractures or dislocations. Ankle mortise is normally aligned. No suspicious bony lesions. Small plantar calcaneal bone spur is seen. Treatment Goals Patient/Caregiver Goals 1. to be able to walk without heel pain 2. to improve her ankle stiffness. PT-OP-C Subjective Start: 05/08/20 12:06 Freq: Status: Active Protocol: Document 08/21/20 11:16 HH (Rec: 08/21/20 12:08 [id number]) OP-PT Subjective Patient Comments Patient Comments I played spike ball again and my heels felt good because i did stretching before that. Im doing pretty good so far and i can sleep without problem Patient Reported Progress Improving PT-OP-D Balance Start: 05/08/20 12:06 Freq: Status: Active Protocol: Document 05/08/20 12:06 HH (Rec: 05/08/20 12:34 [email or web address]) Balance Tests Single Limb Standing Single Limb- Right >60 Single Limb- Left >60 PT-OP-F Manual Assessment Start: 05/08/20 12:06 Freq: Status: Active Protocol: Document 05/08/20 12:06 HH (Rec: 05/08/20 12:34 [email or web address]) Manual Assessments Soft Tissue Assessment Soft Tissue Mobility Assessment significant tenderness and stiftness to pressure at B achilles tendons significant calluses noted at B heels Joint Mobility Assessment Joint Mobility Assessment decreased mid foot pronation mobility and calcaneal inversion and eversion mobility PT-OP-G Mobility & Gait Start: 05/08/20 12:06 Freq: Status: Active Protocol: Document 05/08/20 12:06 HH (Rec: 05/08/20 12:34 [email or web address]) OP Gait Assessment Comments Gait Comments pt walked with a hard heel strike bilaterally during initial contact she also has dec push off through forefoot at preswing. PT-OP-J Posture/Palpation/Skin Start: 05/08/20 12:06 Freq: Status: Active Protocol: Document 05/08/20 12:06 HH (Rec: 05/08/20 12:34 [email or web address]) Posture Evaluation Position Standing Evaluation View Anterior Ankle/Foot Posture (L) Plantarflexed,(R) Plantarflexed Foot Arch (L) High Arch,(R) High Arch Toe Posture (L) Clawed Toes,(R) Clawed Toes PT-OP-K Range of Motion Start: 05/08/20 12:06 Freq: Status: Active Protocol: Document 07/07/20 12:38 HH (Rec: 07/07/20 12:49 HH [email or web address]) Ankle and Foot Goniometric Range of Motion Ankle and Foot Right Active Ankle/Foot ROM WFL No Testing Position Supine Dorsiflexion with Knee Flexed 9 Dorsiflexion with Knee Extended 6 Plantarflexion 72 Inversion 34 Eversion 22 Left Active Ankle/Foot ROM WFL No Testing Position Supine Dorsiflexion with Knee Flexed 12 Dorsiflexion with Knee Extended 7 Plantarflexion 62 Inversion 30 Eversion 24 Toe Range of Motion Toe Right Great Toe Toe ROM WFL No MTP Flexion Active (degrees) 40 MTP Extension Active (degrees) 24 Left Great Toe Toe ROM WFL No MTP Flexion Active (degrees) 45 MTP Extension Active (degrees) 28 PT-OP-M Strength Start: 05/08/20 12:06 Freq: Status: Active Protocol: Document 05/08/20 12:06 (Rec: 05/08/20 12:34 [email or web address]) Ankle/Foot Strength Ankle and Foot Manual Muscle Testing Right Dorsiflexion (L4) 5 Normal Plantarflexion (S1) 5 Normal Inversion 5 Normal Eversion (S1) 5 Normal Comments single calf raise = 33 times without pain Left Dorsiflexion (L4) 5 Normal Plantarflexion (S1) 5 Normal Inversion 5 Normal Eversion (S1) 5 Normal Comments single calf raise = 33 times without pain PT-OP-Q Treatments Start: 05/08/20 12:06 Freq: Status: Active Protocol: Document 08/21/20 11:16 HH (Rec: 08/21/20 12:08 [id number]) Therapeutic Exercises Supine Exercises ankle calf stretch Equipment Used belt Reps/Minutes 20 sec hold x4 Sitting Exercises seated ankle DF and PF Reps/Minutes 8 x2 Comments no discomfort Standing Exercises slider Standing Exercise Name 3 way slider, SL stance Reps/Minutes 4 mins Comments discomfort on L heel with knee bent position runner squat Reps/Minutes 8 x2 Comments for HEP RDL Reps/Minutes 8 x2 Comments for HEP Manual Therapy Treatment Soft Tissue Mobilization gastro Mobilization Type Sustained Pressure,Trigger Point Release Intensity/Depth Moderate Body Position Prone achilles tendon Mobilization Type Sustained Pressure,Trigger Point Release Intensity/Depth Moderate Body Position Sitting Comments reduced mid achilles bulge noted bilaterally. Joint Mobilizations post glide Direction post Grade III Body Position Supine Comments post glide of mortis B foot Joint traction Grade III Body Position Supine Comments mid foot pronation calcaneal pronation PT-OP-T Assessment and Plan Start: 05/08/20 12:06 Freq: Status: Active Protocol: Document 08/21/20 11:16 (Rec: 08/21/20 12:08 HH [id number]) Physical Therapy Assessment Goals hiking Impairment unable to hike d/t heel pain Short Term Goal (STG) 07/07 in progress pt has not been hiking lately Marketing Instructor Goal (LTG) pt will be able to hike again without increase in heel pain LTG Duration 8 weeks gait Impairment pt has poor gait mechanics [facility] Goal (LTG) pt will be able to walk with increased forefoot push off and decreased heel strike to improve her stride length and gait mechanics. ROM Impairment pt has very lmited ankle and toe mobility Short Term Goal (STG) 07/07 cont in progress pt shows improved DF to 3- 5 degrees and big toe extension by 10 degrees to improve her gait mechanics STG Duration 4 weeks [facility] Goal (LTG) pt will show improved DF by 10 degrees and big toe extension by 20 degrees to improve her gait mechanics LTG Duration 8 weeks heel pain Impairment B heel pain =6/10 Short Term Goal (STG) 07/07 goal met Pt has no more than 4/10 heel pain in the morning and after sitting for a long period of time. STG Duration 4 weeks Marketing Instructor Goal (LTG) Pt will have no more than 2/10 heel pain in the morning and after sitting for a long period of time. LTG Duration 8 weeks Assessment Summary Assessment pt shows progression who was able to play spike ball without hurting after. Pt has good understanding with her HEP routine prior to WB activities. Progressed her HEP to close chain SL balance activities and she denies discomfort this session. Physical Therapy Plan Frequency and Duration Frequency of Treatment Every Other Week Duration of Treatment 10 weeks Plan of Care Start Date 07/07/20 Plan of Care End Date 09/20/20 Therapeutic Interventions Therapeutic Interventions Balance Training,Gait Training ,Home Exercise Program,Joint Mobilizations,Manual Therapy, Neuromuscular Re-education, Orthotic/Prosthetic Management ,Patient/Caregiver Education, Self-Care/Home Management,Soft Tissue Mobilization,Taping, Therapeutic Activities, Therapeutic Exercises Modalities Cold Pack/Ice Massage,Electric Stimulation,Hot Packs, Infrared Therapy,Ultrasound Next Visit Focus/Plan Next Note Type Progress Note Next Visit Plan STM on achilles calf stretch toe stretch towel scrunch foot pronation gait training toe push off
--- NOTE | 2020-09-08 11:51 | PT.OTN ---
Current Diagnoses Pain in unspecified ankle and joints of unspecified foot (09/08/20) Physical Therapy Treatment Note PT-OP-A Visit Information Start: 05/08/20 12:06 Freq: Status: Active Protocol: Document 09/08/20 09:07 (Rec: 09/08/20 11:51 [id number]) Out-Patient Physical Therapy Visit Information Visit Information Visit Type Progress Note Visit Start Time 09:48 Visit Stop Time 10:42 Total Visit Minutes 42 Visit Number 13 Number of PUBLIC HEALTH OUTREACH WORKER Visits 0 PT-OP-B Current Condition Start: 05/08/20 12:06 Freq: Status: Active Protocol: Document 05/08/20 12:06 HH (Rec: 05/08/20 12:34 [email or web address]) Current Condition History of Current Condition Onset Date 4 years ago Current Complaints B heel pain, ankle stiffness History of Current Condition Senia is a 54 year old woman with bialteral heel pain 6/10 and ankle stiffness. For the past 4 years, she has had bilateral ankle pain that has been getting worse. She notices the pain the most when she wakes up in the morning, after staying in one position for too long and walking down hill; better with stretches but only with temporary reliefs. Shes describes the pain as shooting from the Achilles tendon. Pain has waken her up every night. She denies lower extremity weakness, numbness. She is a very active woman and works out almost daily but notices she can only do 60% of what she used to do. Her current routine inlcudes : 3 miles walk/day and 30 mins MELI workout 4 times a week but she cannot hike at this point d/t significant heel pain. Prior Treatments and Tests X-ray on B ankles R= No fractures or dislocations. Ankle mortise is normally aligned. No suspicious bony lesions. L= L No fractures or dislocations. Ankle mortise is normally aligned. No suspicious bony lesions. Small plantar calcaneal bone spur is seen. Treatment Goals Patient/Caregiver Goals 1. to be able to walk without heel pain 2. to improve her ankle stiffness. PT-OP-C Subjective Start: 05/08/20 12:06 Freq: Status: Active Protocol: Document 09/08/20 09:07 HH (Rec: 09/08/20 11:51 [id number]) OP-PT Subjective Patient Comments Patient Comments My R heel is doing pretty good. I started hiking again and it was okay that i didnt aggravate anything. I played spike ball a couple times. The only thing that bothers me is sitting for a long time. Patient Reported Progress Improving PT-OP-D Balance Start: 05/08/20 12:06 Freq: Status: Active Protocol: Document 05/08/20 12:06 HH (Rec: 05/08/20 12:34 [email or web address]) Balance Tests Single Limb Standing Single Limb- Right >60 Single Limb- Left >60 PT-OP-F Manual Assessment Start: 05/08/20 12:06 Freq: Status: Active Protocol: Document 05/08/20 12:06 HH (Rec: 05/08/20 12:34 [email or web address]) Manual Assessments Soft Tissue Assessment Soft Tissue Mobility Assessment significant tenderness and stiftness to pressure at B achilles tendons significant calluses noted at B heels Joint Mobility Assessment Joint Mobility Assessment decreased mid foot pronation mobility and calcaneal inversion and eversion mobility PT-OP-G Mobility & Gait Start: 05/08/20 12:06 Freq: Status: Active Protocol: Document 05/08/20 12:06 HH (Rec: 05/08/20 12:34 [email or web address]) OP Gait Assessment Comments Gait Comments pt walked with a hard heel strike bilaterally during initial contact she also has dec push off through forefoot at preswing. PT-OP-J Posture/Palpation/Skin Start: 05/08/20 12:06 Freq: Status: Active Protocol: Document 05/08/20 12:06 HH (Rec: 05/08/20 12:34 [email or web address]) Posture Evaluation Position Standing Evaluation View Anterior Ankle/Foot Posture (L) Plantarflexed,(R) Plantarflexed Foot Arch (L) High Arch,(R) High Arch Toe Posture (L) Clawed Toes,(R) Clawed Toes PT-OP-K Range of Motion Start: 05/08/20 12:06 Freq: Status: Active Protocol: Document 09/08/20 09:07 HH (Rec: 09/08/20 11:51 HH [id number]) Ankle and Foot Goniometric Range of Motion Ankle and Foot Right Active Ankle/Foot ROM WFL No Testing Position Supine Dorsiflexion with Knee Flexed 14 Dorsiflexion with Knee Extended 10 Left Active Ankle/Foot ROM WFL No Testing Position Supine Dorsiflexion with Knee Flexed 12 Dorsiflexion with Knee Extended 8 PT-OP-M Strength Start: 05/08/20 12:06 Freq: Status: Active Protocol: Document 09/08/20 09:07 (Rec: 09/08/20 11:51 [id number]) Ankle/Foot Strength Ankle and Foot Manual Muscle Testing Right Dorsiflexion (L4) 5 Normal Plantarflexion (S1) 5 Normal Inversion 5 Normal Eversion (S1) 5 Normal Comments single calf raise = 33 times without pain Left Dorsiflexion (L4) 5 Normal Plantarflexion (S1) 5 Normal Inversion 5 Normal Eversion (S1) 5 Normal Comments single calf raise = 33 times without pain PT-OP-Q Treatments Start: 05/08/20 12:06 Freq: Status: Active Protocol: Document 09/08/20 09:07 (Rec: 09/08/20 11:51 [id number]) Cardio Equipment Bicycle (Upright) Duration (Minutes) 8 Resistance 8 Manual Therapy Treatment Joint Mobilizations post glide Direction post Grade III Body Position Supine Comments post glide of mortis B foot Joint traction Grade III Body Position Supine Comments mid foot pronation calcaneal pronation PT-OP-T Assessment and Plan Start: 05/08/20 12:06 Freq: Status: Active Protocol: Document 09/08/20 09:07 (Rec: 09/08/20 11:51 [id number]) Physical Therapy Assessment Goals hiking Impairment unable to hike d/t heel pain Short Term Goal (STG) 07/07 in progress pt has not been hiking lately Shelter Goal (LTG) pt will be able to hike again without increase in heel pain LTG Duration 8 weeks gait Impairment pt has poor gait mechanics Transition Mgr Rn Goal (LTG) pt will be able to walk with increased forefoot push off and decreased heel strike to improve her stride length and gait mechanics. ROM Impairment pt has very lmited ankle and toe mobility Short Term Goal (STG) 07/07 cont in progress pt shows improved DF to 3- 5 degrees and big toe extension by 10 degrees to improve her gait mechanics STG Duration 4 weeks Shelter Goal (LTG) pt will show improved DF by 10 degrees and big toe extension by 20 degrees to improve her gait mechanics LTG Duration 8 weeks heel pain Impairment B heel pain =6/10 Short Term Goal (STG) 07/07 goal met Pt has no more than 4/10 heel pain in the morning and after sitting for a long period of time. STG Duration 4 weeks Transition Mgr Rn Goal (LTG) Pt will have no more than 2/10 heel pain in the morning and after sitting for a long period of time. LTG Duration 8 weeks Assessment Summary Assessment pt came in with running shoes with good heel support and 5 mm heel drop with superfeet insole in it. She has been tolerating hiking and spike ball activities well. Pt currently has good understanding on load management and activity modification to manage her symptoms. I also recommended her not to use heel lift for her new shoes to increase achilles tendon loading. She states she feels ready to be DC from PT and continue HEP on her own. I will follow up with her in 3 weeks with phone call. Physical Therapy Plan Frequency and Duration Frequency of Treatment Every Other Week Duration of Treatment 10 weeks Plan of Care Start Date 07/07/20 Plan of Care End Date 09/20/20 Therapeutic Interventions Therapeutic Interventions Balance Training,Gait Training ,Home Exercise Program,Joint Mobilizations,Manual Therapy, Neuromuscular Re-education, Orthotic/Prosthetic Management ,Patient/Caregiver Education, Self-Care/Home Management,Soft Tissue Mobilization,Taping, Therapeutic Activities, Therapeutic Exercises Modalities Cold Pack/Ice Massage,Electric Stimulation,Hot Packs, Infrared Therapy,Ultrasound Next Visit Focus/Plan Next Note Type Progress Note Next Visit Plan STM on achilles calf stretch toe stretch towel scrunch foot pronation gait training toe push off
--- NOTE | 2020-09-28 08:42 | PT.OPDS ---
Current Diagnoses Pain in unspecified ankle and joints of unspecified foot (09/08/20) Visit Care Team Role Provider Type Ellen Webb MD Attending Provider Physician Primary Care Provider Referring Provider Specialty: Family Practice Address: [address] [place] [address], [facility] Email: [email or web address] Visit Number Visit Number 13 Discharge Summary PT-OP-B Current Condition Start: 05/08/20 12:06 Freq: Status: Active Protocol: Document 05/08/20 12:06 HH (Rec: 05/08/20 12:34 HH [email or web address]) Current Condition History of Current Condition Onset Date 4 years ago Current Complaints B heel pain, ankle stiffness History of Current Condition Senia is a 54 year old woman with bialteral heel pain 6/10 and ankle stiffness. For the past 4 years, she has had bilateral ankle pain that has been getting worse. She notices the pain the most when she wakes up in the morning, after staying in one position for too long and walking down hill; better with stretches but only with temporary reliefs. Shes describes the pain as shooting from the Achilles tendon. Pain has waken her up every night. She denies lower extremity weakness, numbness. She is a very active woman and works out almost daily but notices she can only do 60% of what she used to do. Her current routine inlcudes : 3 miles walk/day and 30 mins MELI workout 4 times a week but she cannot hike at this point d/t significant heel pain. Prior Treatments and Tests X-ray on B ankles R= No fractures or dislocations. Ankle mortise is normally aligned. No suspicious bony lesions. L= L No fractures or dislocations. Ankle mortise is normally aligned. No suspicious bony lesions. Small plantar calcaneal bone spur is seen. Treatment Goals Patient/Caregiver Goals 1. to be able to walk without heel pain 2. to improve her ankle stiffness. PT-OP-C Subjective Start: 05/08/20 12:06 Freq: Status: Active Protocol: Document 09/08/20 09:07 HH (Rec: 09/08/20 11:51 HH [id number]) OP-PT Subjective Patient Comments Patient Comments My R heel is doing pretty good. I started hiking again and it was okay that i didnt aggravate anything. I played spike ball a couple times. The only thing that bothers me is sitting for a long time. Patient Reported Progress Improving PT-OP-D Balance Start: 05/08/20 12:06 Freq: Status: Active Protocol: Document 05/08/20 12:06 HH (Rec: 05/08/20 12:34 [email or web address]) Balance Tests Single Limb Standing Single Limb- Right >60 Single Limb- Left >60 PT-OP-F Manual Assessment Start: 05/08/20 12:06 Freq: Status: Active Protocol: Document 05/08/20 12:06 HH (Rec: 05/08/20 12:34 [email or web address]) Manual Assessments Soft Tissue Assessment Soft Tissue Mobility Assessment significant tenderness and stiftness to pressure at B achilles tendons significant calluses noted at B heels Joint Mobility Assessment Joint Mobility Assessment decreased mid foot pronation mobility and calcaneal inversion and eversion mobility PT-OP-G Mobility & Gait Start: 05/08/20 12:06 Freq: Status: Active Protocol: Document 05/08/20 12:06 HH (Rec: 05/08/20 12:34 [email or web address]) OP Gait Assessment Comments Gait Comments pt walked with a hard heel strike bilaterally during initial contact she also has dec push off through forefoot at preswing. PT-OP-J Posture/Palpation/Skin Start: 05/08/20 12:06 Freq: Status: Active Protocol: Document 05/08/20 12:06 HH (Rec: 05/08/20 12:34 [email or web address]) Posture Evaluation Position Standing Evaluation View Anterior Ankle/Foot Posture (L) Plantarflexed,(R) Plantarflexed Foot Arch (L) High Arch,(R) High Arch Toe Posture (L) Clawed Toes,(R) Clawed Toes PT-OP-K Range of Motion Start: 05/08/20 12:06 Freq: Status: Active Protocol: Document 09/08/20 09:07 HH (Rec: 09/08/20 11:51 HH [id number]) Ankle and Foot Goniometric Range of Motion Ankle and Foot Right Active Ankle/Foot ROM WFL No Testing Position Supine Dorsiflexion with Knee Flexed 14 Dorsiflexion with Knee Extended 10 Left Active Ankle/Foot ROM WFL No Testing Position Supine Dorsiflexion with Knee Flexed 12 Dorsiflexion with Knee Extended 8 PT-OP-M Strength Start: 05/08/20 12:06 Freq: Status: Active Protocol: Document 09/08/20 09:07 HH (Rec: 09/08/20 11:51 HH [id number]) Ankle/Foot Strength Ankle and Foot Manual Muscle Testing Right Dorsiflexion (L4) 5 Normal Plantarflexion (S1) 5 Normal Inversion 5 Normal Eversion (S1) 5 Normal Comments single calf raise = 33 times without pain Left Dorsiflexion (L4) 5 Normal Plantarflexion (S1) 5 Normal Inversion 5 Normal Eversion (S1) 5 Normal Comments single calf raise = 33 times without pain PT-OP-T Assessment and Plan Start: 05/08/20 12:06 Freq: Status: Active Protocol: Document 09/28/20 08:41 HH (Rec: 09/28/20 08:42 HH [email or web address]) Physical Therapy Plan Discharge Physical Therapy Discharge Reasons Patient Request Discharge Comments pt reports she is ready to be DC from PT since last visit. Pt has good understanding on load and symptoms management of her achilles tendonopathy
== END 2020-10-08 14:51 | disposition home or self-care (01) ==
LOC: PHYS 09:45
PROVIDERS: PCP Family Medicine; Referring Provider Family Medicine; Visit Provider Family Medicine
DX: M25.579 Pain in unspecified ankle and joints of unspecified foot (principal)
CPT/HCPCS: 95851; 97110; 97140; 97161; 97760

== ENCOUNTER → 2020-11-26 17:20 | Outpatient (CLI) | payer OTHER, SELFPAY ==
--- NOTE | 2020-11-26 17:21 | DI.MG.S_ITS ---
BILATERAL DIGITAL SCREENING MAMMOGRAM 3D/2D WITH CAD: 11/26/2020 CLINICAL: Routine screening. Comparison is made to exams dated: 04/29/2020 ultrasound, 04/29/2020 mammogram, 11/26/2019 mammogram, and 05/30/2018 mammogram - [facility]. The tissue of both breasts is heterogeneously dense. This may lower the sensitivity of mammography. Current study was also evaluated with a Computer Aided Detection (CAD) system. No significant masses, calcifications, or other findings are seen in either breast. There has been no significant interval change. IMPRESSION: NEGATIVE There is no mammographic evidence of malignancy. A 1 year screening mammogram is recommended. This exam was interpreted at Station ID: [id number]. NOTE: For mammograms, a report in lay terms will be sent to the patient. Approximately 15% of breast malignancies will not be visualized mammographically. In the management of a palpable breast mass, a negative mammogram must not discourage biopsy of a clinically suspicious lesion. Electronically Signed By: Marylin garcia/missael:11/27/2020 09:29:31 letter sent: Normal Exam ACR BI-RADS Category 1: Negative 3341F
== END ==
PROVIDERS: PCP Family Medicine; Referring Provider Family Medicine; Visit Provider Family Medicine
DX: Z12.31 Encounter for screening mammogram for malignant neoplasm of breast (principal)
CPT/HCPCS: 77063; 77067

== ENCOUNTER → 2021-08-03 09:02 | Outpatient (CLI) | payer OTHER, SELFPAY ==
[2021-08-03 09:58] LABS: Add Manual Diff / Slide Review NO; Basophils Absolute Auto 0 /uL (0-100); Basophils Percent Auto 0.9 % (0-2); Eosinophils Absolute Auto 100 /uL (0-450); Eosinophils Percent Auto 1.9 % (2-4); Hematocrit 37.2 % (36-46); Hemoglobin 12.5 g/dL (12.0-16.0); Lymphocytes Absolute Auto 1400 /uL (1100-4500); Lymphocytes Percent Auto 30.6 % (25-40); Mean Corpuscular HGB Conc 33.5 % (30-36); Mean Corpuscular Hemoglobin 31.2 PG (26-34); Mean Corpuscular Volume 93.2 fL (80-100); Monocytes Absolute Auto 400 /uL (0-900); Monocytes Percent Auto 8.4 % (3-14); Neutrophils Absolute Auto 2700 /uL (1500-7000); Neutrophils Percent Auto 58.2 % (50-75); Platelet Count 217 X10^3/uL (150-400); White Blood Cell Count 4.6 X10^3/uL (4.5-11.0)
[2021-08-03 11:19] LABS: Alanine Aminotransferase 39 IU/L (<35); Albumin 4.3 g/dL (3.5-5.0); Albumin Globulin Ratio 1.5 (1.0-2.8); Alkaline Phosphatase 75 U/L (38-126); Aspartate Aminotransferase 41 IU/L (14-36); BUN Creatinine Ratio 17.9 (6-22); Bilirubin Total 0.7 mg/dL (0.2-1.3); Blood Urea Nitrogen 14 mg/dL (7-17); Carbon Dioxide 28 mmol/L (22-32); Chloride 105 mmol/L (98-107); Cholesterol 228 mg/dL (140-199); Estimated Glomerular Filt Rate > 60 mL/min (>60); Globulin 2.8 g/dL (1.7-4.1); Glucose 90 mg/dL (70-100); HDL Cholesterol 79 mg/dL (40-60); HEMOLYSIS < 15 (0-50); LDL Cholesterol Calculated 133 mg/dL (<100); Potassium 5.3 mmol/L (3.4-5.1); Sodium 140 mmol/L (137-145); Total Protein 7.1 g/dL (6.3-8.2); Triglycerides 80 mg/dL (35-150)
[2021-08-03 11:42] LABS: Thyroid Stimulating Hormone 2.94 uIU/mL (0.47-4.68)
== END ==
PROVIDERS: PCP Family Medicine; Referring Provider Family Medicine; Visit Provider Family Medicine
DX: E03.9 Hypothyroidism, unspecified (principal)
CPT/HCPCS: 36415; 80053; 80061; 84443; 85025

== ENCOUNTER → 2021-08-05 13:46 | Outpatient (CLI) | payer OTHER, SELFPAY ==
[2021-08-06 13:39] LABS: Fecal Immunochemical Test Negative (Negative)
== END ==
PROVIDERS: PCP Family Medicine; Referring Provider Family Medicine; Visit Provider Family Medicine
DX: Z12.11 Encounter for screening for malignant neoplasm of colon (principal)
CPT/HCPCS: 82274

== ENCOUNTER → 2021-09-14 14:26 | Outpatient (CLI) | payer OTHER, SELFPAY ==
[2021-09-14 16:43] LABS: Alanine Aminotransferase 33 IU/L (<35); Albumin 4.3 g/dL (3.5-5.0); Albumin Globulin Ratio 1.5 (1.0-2.8); Alkaline Phosphatase 80 U/L (38-126); Aspartate Aminotransferase 39 IU/L (14-36); Bilirubin Total 0.4 mg/dL (0.2-1.3); Blood Urea Nitrogen 14 mg/dL (7-17); Calcium 9.3 mg/dL (8.4-10.2); Carbon Dioxide 27 mmol/L (22-32); Chloride 106 mmol/L (98-107); Estimated Glomerular Filt Rate 60 mL/min (>60); Globulin 2.9 g/dL (1.7-4.1); Glucose 73 mg/dL (70-100); HEMOLYSIS < 15 (0-50); Potassium 4.4 mmol/L (3.4-5.1); Sodium 142 mmol/L (137-145); Total Protein 7.2 g/dL (6.3-8.2)
== END ==
PROVIDERS: PCP Family Medicine; Referring Provider Family Medicine; Visit Provider Family Medicine
DX: R74.8 Abnormal levels of other serum enzymes (principal)
CPT/HCPCS: 36415; 80053

== ENCOUNTER → 2022-01-12 16:29 | Outpatient (CLI) | payer OTHER, SELFPAY ==
--- NOTE | 2022-01-12 16:30 | DI.MG.S_ITS ---
BILATERAL DIGITAL SCREENING MAMMOGRAM 3D/2D WITH CAD: 01/12/2022 CLINICAL: Routine screening. Comparison is made to exams dated: 11/26/2020 mammogram, 11/26/2019 mammogram, and 05/30/2018 mammogram - [facility]. Both breasts are heterogeneously dense, which may obscure small masses (category c / 51-75% glandular tissue). Current study was also evaluated with a Computer Aided Detection (CAD) system. No significant masses, calcifications, or other findings are seen in either breast. There has been no significant interval change. IMPRESSION: NEGATIVE There is no mammographic evidence of malignancy. A 1 year screening mammogram is recommended. Based on the Tyrer Cuzick model (a risk assessment model) the patient's lifetime risk is 10.9% and her 10 year risk is 3.8%. According to the ACR, ACS, and NCCN guidelines, an annual breast MRI exam along with mammogram is recommended if the patient's lifetime risk is 20% or greater. This exam was interpreted at Station ID: [id number]. NOTE: For mammograms, a report in lay terms will be sent to the patient. Approximately 15% of breast malignancies will not be visualized mammographically. In the management of a palpable breast mass, a negative mammogram must not discourage biopsy of a clinically suspicious lesion. Electronically Signed By: Liu sifuentes/missael:01/13/2022 16:58:55 letter sent: Normal Exam ACR BI-RADS Category 1: Negative [id number]
== END ==
PROVIDERS: PCP Family Medicine; Referring Provider Family Medicine; Visit Provider Family Medicine
DX: Z12.31 Encounter for screening mammogram for malignant neoplasm of breast (principal)
CPT/HCPCS: 77063; 77067

== ENCOUNTER → 2022-11-16 16:16 | Outpatient (CLI) | payer OTHER, SELFPAY ==
[2022-11-16 18:12] LABS: Alanine Aminotransferase 27 IU/L (<35); Albumin 4.5 g/dL (3.5-5.0); Albumin Globulin Ratio 1.4 (1.0-2.8); Alkaline Phosphatase 69 U/L (38-126); Aspartate Aminotransferase 32 IU/L (14-36); BUN Creatinine Ratio 29.9 (6-22); Bilirubin Total 0.5 mg/dL (0.2-1.3); Blood Urea Nitrogen 23 mg/dL (7-17); Calcium 9.8 mg/dL (8.4-10.2); Carbon Dioxide 32 mmol/L (22-32); Chloride 101 mmol/L (98-107); Cholesterol 233 mg/dL (140-199); Estimated Glomerular Filt Rate > 60 mL/min (>60); Globulin 3.2 g/dL (1.7-4.1); Glucose 92 mg/dL (70-100); HDL Cholesterol 70 mg/dL (40-60); HEMOLYSIS < 15 (0-50); LDL Cholesterol Calculated 137 mg/dL (<100); Potassium 4.6 mmol/L (3.4-5.1); Sodium 135 mmol/L (137-145); Total Protein 7.7 g/dL (6.3-8.2); Triglycerides 131 mg/dL (35-150)
[2022-11-16 18:42] LABS: Thyroid Stimulating Hormone 8.71 uIU/mL (0.47-4.68)
== END ==
PROVIDERS: PCP Family Medicine; Referring Provider Family Medicine; Visit Provider Family Medicine
DX: R74.8 Abnormal levels of other serum enzymes (principal); E78.5 Hyperlipidemia, unspecified; E03.9 Hypothyroidism, unspecified
CPT/HCPCS: 36415; 80053; 80061; 84443

== ENCOUNTER → 2022-12-03 12:18 | Outpatient (CLI) | payer OTHER, SELFPAY ==
[2022-12-06 10:22] LABS: Fecal Immunochemical Test Negative (Negative)
== END ==
PROVIDERS: PCP Family Medicine; Referring Provider Family Medicine; Visit Provider Family Medicine
DX: Z12.11 Encounter for screening for malignant neoplasm of colon (principal)
CPT/HCPCS: 82274

== ENCOUNTER → 2023-01-30 15:44 | Outpatient (CLI) | payer OTHER, SELFPAY ==
[2023-01-30 18:08] LABS: TSH w/ Reflex to FT4 2.97 uIU/mL (0.47-4.68)
== END ==
PROVIDERS: PCP Family Medicine; Referring Provider Family Medicine; Visit Provider Family Medicine
DX: E03.9 Hypothyroidism, unspecified (principal)
CPT/HCPCS: 36415; 84443

== ENCOUNTER → 2023-02-20 15:00 | Outpatient (CLI) | payer OTHER, SELFPAY ==
--- NOTE | 2023-02-20 15:01 | DI.MG.S_ITS ---
BILATERAL DIGITAL SCREENING MAMMOGRAM 3D/2D WITH CAD: 02/20/2023 CLINICAL: Routine screening. Comparison is made to exams dated: 01/12/2022 mammogram, 11/26/2020 mammogram, and 11/26/2019 mammogram - [facility]. Both breasts are heterogeneously dense, which may obscure small masses (category c / 51-75% glandular tissue). Current study was also evaluated with a Computer Aided Detection (CAD) system. There are benign calcifications in both breasts. No significant masses, calcifications, or other findings are seen in either breast. There has been no significant interval change. IMPRESSION: BENIGN There is no mammographic evidence of malignancy. A 1 year screening mammogram is recommended. Based on the Tyrer Cuzick model (a risk assessment model) the patient's lifetime risk is 10.7% and her 10 year risk is 3.9%. According to the ACR, ACS, and NCCN guidelines, an annual breast MRI exam along with mammogram is recommended if the patient's lifetime risk is 20% or greater. This exam was interpreted at Station ID: [id number]. NOTE: For mammograms, a report in lay terms will be sent to the patient. Approximately 15% of breast malignancies will not be visualized mammographically. In the management of a palpable breast mass, a negative mammogram must not discourage biopsy of a clinically suspicious lesion. Electronically Signed By: Alejandra brooke/missael:02/20/2023 16:26:41 letter sent: Normal Exam ACR BI-RADS Category 2: Benign Finding(s) 3342F
== END ==
PROVIDERS: PCP Family Medicine; Referring Provider Family Medicine; Visit Provider Family Medicine
DX: Z12.31 Encounter for screening mammogram for malignant neoplasm of breast (principal); R92.333 Mammographic heterogeneous density, bilateral breasts
CPT/HCPCS: 77063; 77067

== ENCOUNTER → 2023-07-03 11:49 | Outpatient (CLI) | payer OTHER, SELFPAY ==
--- NOTE | 2023-07-03 | DI.US.S_ITS ---
ULTRASOUND OF RIGHT AXILLA: 07/03/2023 CLINICAL: Palpable right axilla lump. Comparison is made to exams dated: 07/03/2023 mammogram, 02/20/2023 mammogram, and 01/12/2022 mammogram - [facility]. Real-time ultrasound of the right axilla was performed. Cartwright scale images of the real-time examination were reviewed. No significant abnormalities were seen sonographically in the right axilla. No mass or cyst or enlarged lymph node. IMPRESSION: NEGATIVE There is no sonographic evidence of malignancy. A 1 year screening mammogram is recommended. Exam findings were conveyed to the patient. Patient is advised to monitor for significant change. Clinical follow-up as needed. This exam was interpreted at Station ID: [id number]. Electronically Signed By: Mumtaz Hernandez M.D. slc/:07/03/2023 13:03:27 letter sent: Normal Exam Ultrasound BI-RADS: 1 Negative
--- NOTE | 2023-07-03 | DI.US.S_ITS ---
ULTRASOUND OF LEFT AXILLA: 07/03/2023 CLINICAL: Palpable left axilla lump. Comparison is made to exams dated: 07/03/2023 mammogram, 02/20/2023 mammogram, and 01/12/2022 mammogram - [facility]. Real-time ultrasound of the left axilla was performed. Cartwright scale images of the real-time examination were reviewed. No significant abnormalities were seen sonographically in the left axilla. No mass or cyst or enlarged lymph node. IMPRESSION: NEGATIVE There is no sonographic evidence of malignancy. A 1 year screening mammogram is recommended. Exam findings were conveyed to the patient. Patient is advised to monitor for significant change. Clinical follow-up as needed. This exam was interpreted at Station ID: [id number]. Electronically Signed By: Mumtaz Hernandez M.D. slc/:07/03/2023 13:04:33 letter sent: Normal Exam Ultrasound BI-RADS: 1 Negative
--- NOTE | 2023-07-03 11:50 | DI.MG.S_ITS ---
BILATERAL DIGITAL DIAGNOSTIC MAMMOGRAM 3D/2D: 07/03/2023 CLINICAL: Bilateral Axillary masses. Comparison is made to exams dated: 02/20/2023 mammogram, 01/12/2022 mammogram, and 11/26/2020 mammogram - [facility]. Both breasts are heterogeneously dense, which may obscure small masses (category c / 51-75% glandular tissue). No significant masses, calcifications, or other findings are seen in either breast. IMPRESSION: INCOMPLETE: NEEDS ADDITIONAL IMAGING EVALUATION No mammographic evidence of malignancy. A targeted ultrasound is recommended and will immediately follow. Based on the Tyrer Cuzick model (a risk assessment model) the patient's lifetime risk is 10.7% and her 10 year risk is 3.9%. According to the ACR, ACS, and NCCN guidelines, an annual breast MRI exam along with mammogram is recommended if the patient's lifetime risk is 20% or greater. This exam was interpreted at Station ID: [id number]. NOTE: For mammograms, a report in lay terms will be sent to the patient. Approximately 15% of breast malignancies will not be visualized mammographically. In the management of a palpable breast mass, a negative mammogram must not discourage biopsy of a clinically suspicious lesion. Electronically Signed By: Mumtaz Hernandez M.D. slc/:07/03/2023 12:39:44 ACR BI-RADS Category 0: Incomplete 3340F
== END ==
LOC: MAMMO 11:49
PROVIDERS: PCP Family Medicine; Referring Provider Family Medicine; Visit Provider Family Medicine
DX: R92.2 Inconclusive mammogram (principal); R92.333 Mammographic heterogeneous density, bilateral breasts; R22.30 Localized swelling, mass and lump, unspecified upper limb
CPT/HCPCS: 76882; 77066; G0279

== ENCOUNTER → 2024-03-08 09:59 | Outpatient (CLI) | payer OTHER, SELFPAY ==
[2024-03-08 12:07] LABS: Thyroid Stimulating Hormone 6.64 uIU/mL (0.47-4.68)
== END ==
PROVIDERS: PCP Family Medicine; Referring Provider Family Medicine; Visit Provider Family Medicine
DX: E03.9 Hypothyroidism, unspecified (principal)
CPT/HCPCS: 36415; 84443

== ENCOUNTER → 2024-05-24 15:34 | Outpatient (CLI) | payer OTHER, SELFPAY ==
--- NOTE | 2024-05-24 15:34 | DI.MG.S_ITS ---
MM screening mammo BI: 05/24/2024. BI-RADS: 0 CLINICAL: 58-year old female for bilateral screening mammogram. Tyrer-Cuzick lifetime risk of 10.0%. No personal or first-degree family history of breast cancer. PRIOR EXAMS 07/03/2023, 02/20/2023, 01/12/2022, 11/26/2020, 04/29/2020, 11/26/2019, 12/13/2018, 06/14/2018, 05/30/2018. MAMMOGRAPHY TECHNIQUE: 2D and 3D (tomosynthesis) digital mammographic views obtained, with additional images as needed for full coverage. Current study was also evaluated with a Computer Aided Detection (CAD) system. DENSITY C. The breasts are heterogeneously dense, which may obscure small masses. MAMMOGRAPHY FINDINGS Right: No suspicious mass, asymmetry, microcalcification, or other abnormality seen. Left: CC only, Outer, Middle depth: Possible asymmetry is visualized. Asymmetry needing additional imaging evaluation. IMPRESSION: Right * No evidence of malignancy. Left (Asymmetry): CC only, Outer, Middle depth * Incomplete - asymmetry needing additional imaging evaluation. RECOMMENDATIONS Left: CC only, Outer, Middle depth * Further evaluation with diagnostic mammography and diagnostic ultrasound. Ultrasound to be performed only if needed. OVERALL ASSESSMENT CATEGORY BI-RADS-0: Incomplete - Need Additional Imaging Evaluation. ELECTRONICALLY SIGNED: Liu Bennett M.D. on 05/24/2024 at 07:48:52 PM PT Interpreting Station ID: [id number]
[2024-05-24 18:31] LABS: Thyroid Stimulating Hormone 1.46 uIU/mL (0.47-4.68)
== END ==
PROVIDERS: PCP Family Medicine; Referring Provider Family Medicine; Visit Provider Family Medicine
DX: Z12.31 Encounter for screening mammogram for malignant neoplasm of breast (principal); R92.333 Mammographic heterogeneous density, bilateral breasts; E03.9 Hypothyroidism, unspecified
CPT/HCPCS: 36415; 77063; 77067; 84443

== ENCOUNTER → 2024-07-04 08:43 | Outpatient (CLI) | payer OTHER, SELFPAY ==
--- NOTE | 2024-07-04 08:44 | DI.MG.S_ITS ---
MM diagnostic mammo unilat LT: 07/04/2024. BI-RADS: 1 CLINICAL: 58-year old female for left diagnostic mammogram that is a recall from screening on 05/24/2024. Tyrer-Cuzick lifetime risk of 10.0%. No personal or first-degree family history of breast cancer. PRIOR EXAMS Mammogram(s): 05/24/2024. 15 Other Exams on 07/03/2023, 02/20/2023, 01/12/2022, 11/26/2020, 04/29/2020, 11/26/2019, 12/13/2018, 06/14/2018, 05/30/2018. MAMMOGRAPHY TECHNIQUE: 2D and 3D (tomosynthesis) digital mammographic views obtained, with additional images as needed for full coverage. Current study was also evaluated with a Computer Aided Detection (CAD) system. DENSITY Left: C. The breasts are heterogeneously dense, which may obscure small masses. MAMMOGRAPHY FINDINGS Left: CC only, Outer: The finding seen on recent screening mammogram did not persist with additional imaging and is consistent with superimposition of normal breast tissue. No suspicious mass, asymmetry, microcalcification, or other abnormality seen. IMPRESSION: Left * No evidence of malignancy. RECOMMENDATIONS Bilateral * Annual screening mammography. COMMENTS: Findings and recommendations were conveyed to the patient during today's evaluation. OVERALL ASSESSMENT CATEGORY BI-RADS-1: Negative. The [employer] recommends annual screening mammography beginning at age 40 for women with average risk of breast cancer. ELECTRONICALLY SIGNED: Rochelle Ugalde M.D. on 07/04/2024 at 09:34:24 AM PT Interpreting Station ID: [id number]
== END ==
PROVIDERS: PCP Family Medicine; Referring Provider Family Medicine; Visit Provider Family Medicine
DX: R92.8 Other abnormal and inconclusive findings on diagnostic imaging of breast (principal); R92.333 Mammographic heterogeneous density, bilateral breasts
CPT/HCPCS: 77065; G0279

== ENCOUNTER 2024-11-11 10:34 | Emergency (ER) | payer OTHER, SELFPAY ==
[2024-11-11] VITALS (42 sets, daily range): BP systolic 92–134; BP diastolic 66–88; PULSE 69–151; RESP 5–27; TEMP 36.6–37; O2SAT 85–100; BMI 27.1
--- NOTE | 2024-11-11 10:58 | DI.RAD.S_ITS ---
PROCEDURE: XR CHEST 1V INDICATIONS: Chest Pain TECHNIQUE: One view of the chest was acquired. COMPARISON: None. FINDINGS: Surgical changes and devices: None. Lungs and pleura: Lungs are clear. No pleural effusions or pneumothorax. Mediastinum: Mediastinal contours appear normal. Heart size is normal. Bones and chest wall: No suspicious bony lesions. Overlying soft tissues appear unremarkable. IMPRESSION: No acute cardiopulmonary abnormality is seen. If symptoms persist or worsen, or there is high clinical suspicion of thoracic abnormality, CT chest could be performed. Dictated by: Alxeis Reese M.D. on 11/11/2024 at 11:52 Approved by: Alexis Reese M.D. on 11/11/2024 at 11:53
--- NOTE | 2024-11-11 11:09 | EKG_ITS ---
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
--- NOTE | 2024-11-11 11:36 | ED.ARRPALP ---
HPI - Arrhythmia/Palpitations General Chief Complaint: Arrhythmia/Palpitations Stated Complaint: Fast heart rate Time Seen by Provider: 11/11/24 11:18 Source: patient Mode of arrival: Ambulatory History of Present Illness HPI narrative: This is a 5-year-old female with a history of hypothyroidism who is postmenopausal and on hormone replacement. She noted the onset of a rapid heart rate at about 7:15 a.m. today, patient has seen approximately 11:30 a.m. she is not having chest pain she is not feeling short of breath she feels a little flushed but otherwise not feeling faint. Did have 2 or 3 alcoholic drinks last night which she does a couple of times a week. She has never had symptoms like this in the past. She is taking thyroid replacement she is taking hormone replacement but she is not on phentermine anymore. She is taking tirizepatide and got a shot last night. Related Data Home Medications ?Medication ?Instructions ?Recorded ?Confirmed phentermine 30 mg capsule 30 mg PO DAILY 04/28/22 10/31/23 Previous Rx's ?Medication ?Instructions ?Recorded meloxicam 7.5 mg tablet 7.5 mg PO DAILY #30 tabs 10/31/23 levothyroxine 137 mcg tablet 137 mcg PO DAILY #90 tabs 03/11/24 estradiol 0.025 mg/24 hr See Rx Instructions .Route 07/09/24 semiweekly transdermal patch .COMPLEX #8 patches (Zoila) apixaban 5 mg tablet (Eliquis) 5 mg PO BID #60 tabs 11/11/24 Allergies Allergy/AdvReac Type Severity Reaction Status Date / Time No Known Drug Allergies Allergy Unverified 10/31/23 09:21 Patient History Medical History (Updated 11/11/24 @ 14:34 by Khang Mora MD) Foot pain (~2016) Hypothyroidism (~1995) Surgical History (Updated 04/17/18 @ 21:09 by Mely Byers) Anesthesia Ovarian cyst (~1992) Family History (Updated 04/17/18 @ 21:10 by Mely Byers) Father Cancer Mother Hypertension Heart disease Brother Diabetes mellitus Social History marital status: household members: spouse and children pets and animals: Yes education level: college occupational status: employed leisure activities: reading other: hiking seatbelt use: always water heater temp set < 120 deg: Yes working smoke detector in home: Yes fire extinguisher in home: Yes carbon monox detector in home: Yes Smoking Status: Former smoker alcohol intake: current (rare) substance use type: does not use during the past year weight has: increased > 10 lbs well-balanced diet: about half the time daily servings fruits/ve-4 caffeine: Yes eating out: 1-3 times/week frequency: 5-6 times per week duration: 30-45 minutes/day Smoking Status: Former smoker Exam Initial Vital Signs Initial Vital Signs: Vital Signs Temperature 98.6 F 11/11/24 10:55 Pulse Rate 150 H 11/11/24 10:55 Respiratory Rate 22 11/11/24 10:55 Blood Pressure 112/77 11/11/24 10:55 Pulse Oximetry 100 11/11/24 10:55 Oxygen Delivery Method Room Air 11/11/24 10:55 vital signs are reviewed Const General: cooperative and No acute distress HENMT Head: normocephalic and atraumatic Face and sinus: face symmetric Mouth: moist mucous membranes Eyes Pupils: PERRL EOM: EOM intact bilaterally Neck Neck: normal visual inspection, supple and No JVD Chest Chest: normal inspection of the chest Resp Effort & Inspection: normal respiratory effort and able to speak in complete sentences Auscultation: clear to auscultation bilaterally Cardio Other: Tachycardic with a regular rhythm GI Inspection: normal to inspection Palpation: soft Auscultation: normal bowel sounds Back/Spine/Pelvis Back: normal to inspection Skin General: no rashes or lesions noted and warm Neuro General: patient alert, patient oriented x3 and moves all extremities Speech: speech normal Extrem General: full ROM Psych Appearance: grossly normal Procedures Cardioversion Time of Cardioversion: 14:15 Indication: Atrial fibrillation with rapid ventricular response Stability: Stable Number of attempts (shocks): 1 Joules used: 150 Cardiac rhythm post-cardioversion: Normal sinus rhythm Additional Comments: Cardioversion with synchronous, tolerated well Procedural Sedation Time of procedure: 14:10 Consent signed: Yes Time out performed: Yes Indication: cardioversion ASA Class: I Mallampati Airway Classification: Class II IV Etomidate dose (mg): 7.6 Intraservice time/total sedation time (min): 15 ED Sedation Level: Moderate (Concious) Patient Tolerated Procedure: Well Complications: none Course Orders Ordered: ED Orders 11/11/24 10:58 XR chest 1V Stat EKG-12 Lead Stat 11/11/24 11:00 Complete Blood Count AUTO DIFF Stat Comprehensive Metabolic Panel Stat D Dimer Stat Lipase Stat Magnesium Stat NT-proBNP (BNP-Adult 18+) Stat PTT Partial Thromboplastin Rocael Stat Prothrombin Time INR Stat Troponin & CK Cardiac Panel Stat 11/11/24 14:29 EKG-12 Lead Routine Discontinued Medications Apixaban (Apixaban 5 Mg Tablet) 5 mg PO NOW ONE Stop: 11/11/24 14:36 Last Admin: 11/11/24 15:05 Dose: 5 mg Documented By: AYESHA Aspirin (Aspirin 81 Mg Chew Tab) 324 mg PO NOW ONE Stop: 11/11/24 10:59 Last Admin: 11/11/24 11:39 Dose: 324 mg Documented By: AYESHA Etomidate (Etomidate 2 Mg/Ml 10 Ml Vial) 7.6 mg 0.1 mg/kg (7.6 mg) IV NOW ONE Stop: 11/11/24 13:49 Last Admin: 11/11/24 14:20 Dose: 7.6 mg Documented By: AYESHA Metoprolol Tartrate (Metoprolol Tartrate 5 Mg/5 Ml Inj) 5 mg IV NOW ONE Stop: 11/11/24 11:35 Last Admin: 11/11/24 11:39 Dose: 5 mg Documented By: AYESHA Metoprolol Tartrate (Metoprolol Tartrate 5 Mg/5 Ml Inj) 5 mg IV NOW ONE Stop: 11/11/24 12:00 Last Admin: 11/11/24 12:09 Dose: 5 mg Documented By: AYESHA Metoprolol Tartrate (Metoprolol Tartrate 5 Mg/5 Ml Inj) 5 mg IV NOW ONE Stop: 11/11/24 12:21 Last Admin: 11/11/24 12:38 Dose: 5 mg Documented By: AYESHA Ondansetron HCl (Ondansetron 4 Mg/2 Ml Inj) 4 mg IV NOW ONE Stop: 11/11/24 14:10 Last Admin: 11/11/24 14:19 Dose: 4 mg Documented By: AYESHA Reevaluation(s) Reevaluation #1: At 1:50 p.m., patient is still in what is now clearly atrial fibrillation. She is agreeable to cardioversion, has been unsuccessful with metoprolol. Reevaluation #2: Patient is re-evaluated after sedation. Repeat EKG shows normal sinus rhythm at 71 with a normal EKG. She is alert, I have ordered Eliquis, has a ride patient will be discharged. Vital Signs Vital signs: Vital Signs - 8 hr 11/11/24 10:55 11/11/24 11:14 11/11/24 11:16 Temperature 98.6 F Pulse Rate 150 H 141 H Respiratory Rate 22 Blood Pressure 112/77 114/85 Pulse Oximetry 100 Oxygen Delivery Method Room Air 11/11/24 11:16 11/11/24 11:30 11/11/24 11:30 Temperature Pulse Rate 146 H 143 H Respiratory Rate 12 15 Blood Pressure 134/86 Pulse Oximetry 100 100 Oxygen Delivery Method 11/11/24 11:46 11/11/24 11:46 11/11/24 11:50 Temperature Pulse Rate 141 H Respiratory Rate 12 Blood Pressure 128/87 129/86 Pulse Oximetry 100 Oxygen Delivery Method 11/11/24 11:50 11/11/24 11:57 11/11/24 11:57 Temperature Pulse Rate 141 H 141 H Respiratory Rate 16 15 Blood Pressure 117/79 Pulse Oximetry 100 100 Oxygen Delivery Method 11/11/24 12:01 11/11/24 12:10 11/11/24 12:10 Temperature Pulse Rate 141 H 140 H Respiratory Rate 18 Blood Pressure 120/88 Pulse Oximetry 95 100 Oxygen Delivery Method 11/11/24 12:20 11/11/24 12:20 11/11/24 12:30 Temperature Pulse Rate 140 H Respiratory Rate 12 Blood Pressure 114/82 112/85 Pulse Oximetry 98 Oxygen Delivery Method 11/11/24 12:30 11/11/24 12:40 11/11/24 12:40 Temperature Pulse Rate 140 H 141 H Respiratory Rate 9 L 8 L Blood Pressure 106/82 Pulse Oximetry 96 100 Oxygen Delivery Method Room Air 11/11/24 12:50 11/11/24 12:50 11/11/24 13:00 Temperature Pulse Rate 139 H Respiratory Rate Blood Pressure 106/81 105/74 Pulse Oximetry 98 Oxygen Delivery Method 11/11/24 13:00 11/11/24 13:05 11/11/24 13:10 Temperature Pulse Rate 123 H 128 H Respiratory Rate 10 L 11 L Blood Pressure 125/68 133/66 Pulse Oximetry 99 98 Oxygen Delivery Method Room Air 11/11/24 13:10 11/11/24 13:15 11/11/24 13:20 Temperature Pulse Rate 139 H 134 H 140 H Respiratory Rate 13 12 18 Blood Pressure Pulse Oximetry 97 99 99 Oxygen Delivery Method 11/11/24 13:21 11/11/24 13:21 11/11/24 13:28 Temperature Pulse Rate 147 H 148 H Respiratory Rate 15 18 Blood Pressure 126/75 Pulse Oximetry 100 Oxygen Delivery Method 11/11/24 13:29 11/11/24 13:29 11/11/24 13:30 Temperature Pulse Rate 144 H 149 H Respiratory Rate 14 14 Blood Pressure 128/80 Pulse Oximetry 85 L 99 Oxygen Delivery Method 11/11/24 13:30 11/11/24 13:35 11/11/24 13:40 Temperature Pulse Rate 137 H Respiratory Rate 27 H Blood Pressure 113/67 109/70 Pulse Oximetry 99 Oxygen Delivery Method 11/11/24 13:40 11/11/24 13:45 11/11/24 13:50 Temperature Pulse Rate 138 H 144 H 142 H Respiratory Rate 14 24 16 Blood Pressure Pulse Oximetry 99 97 99 Oxygen Delivery Method 11/11/24 13:51 11/11/24 13:51 11/11/24 13:55 Temperature Pulse Rate 150 H 143 H Respiratory Rate 19 16 Blood Pressure 101/80 Pulse Oximetry 99 99 Oxygen Delivery Method 11/11/24 14:05 11/11/24 14:05 11/11/24 14:10 Temperature Pulse Rate 148 H 146 H Respiratory Rate 5 L 11 L Blood Pressure 92/71 Pulse Oximetry 99 99 Oxygen Delivery Method 11/11/24 14:11 11/11/24 14:11 11/11/24 14:15 Temperature Pulse Rate 145 H 144 H Respiratory Rate 19 24 Blood Pressure 126/68 Pulse Oximetry 100 100 Oxygen Delivery Method 11/11/24 14:20 11/11/24 14:20 11/11/24 14:25 Temperature Pulse Rate 151 H Respiratory Rate 20 Blood Pressure 126/78 124/77 Pulse Oximetry 100 Oxygen Delivery Method 11/11/24 14:25 11/11/24 14:30 11/11/24 14:30 Temperature 97.9 F Pulse Rate 71 69 Respiratory Rate 18 13 Blood Pressure 112/73 112/73 Pulse Oximetry 98 98 Oxygen Delivery Method 11/11/24 14:30 11/11/24 14:35 11/11/24 14:39 Temperature Pulse Rate 70 70 78 Respiratory Rate 20 13 18 Blood Pressure Pulse Oximetry 96 96 Oxygen Delivery Method 11/11/24 14:40 11/11/24 14:40 11/11/24 14:45 Temperature Pulse Rate 76 74 Respiratory Rate 20 Blood Pressure 114/74 Pulse Oximetry 96 97 Oxygen Delivery Method 11/11/24 14:50 11/11/24 14:51 11/11/24 14:51 Temperature Pulse Rate 75 75 Respiratory Rate 10 L 15 Blood Pressure 108/80 Pulse Oximetry 96 98 Oxygen Delivery Method 11/11/24 14:55 Temperature Pulse Rate 72 Respiratory Rate 15 Blood Pressure Pulse Oximetry 97 Oxygen Delivery Method MDM - Arrhythmia/Palpitations Lab Data Lab results narrative: CBC with diff and CMP are unremarkable, D-dimer is normal 11/11/24 11:00 11/11/24 11:00 Labs: Lab Results 11/11/24 Range/Units 11:00 WBC 5.2 (4.5-11.0) X10^3/uL RBC 4.43 (4.0-5.2) X10^6/uL Hgb 13.7 (12.0-16.0) g/dL Hct 40.9 (36-46) % MCV 92.4 (80-100) fL MCH 31.0 (26-34) PG MCHC 33.6 (30-36) % RDW 13.1 (11.6-14.8) % Plt Count 256 (150-400) X10^3/uL Neut % (Auto) 63.5 (50-75) % Lymph % (Auto) 26.2 (25-40) % [place] % (Auto) 8.1 (3-14) % Eos % (Auto) 1.0 L (2-4) % Baso % (Auto) 1.2 (0-2) % Neut # (Auto) 3300 (6379-0854) /uL Lymph # (Auto) 1400 (9384-3912) /uL [place] # (Auto) 400 (0-900) /uL Eos # (Auto) 0 (0-450) /uL Baso # (Auto) 100 (0-100) /uL PT 10.1 (9.4-12.5) SECONDS INR 0.9 (0.9-1.3) APTT 29 (25.1-36.5) SECONDS D-Dimer < 215 (<500) ng/ml Sodium 139 (137-145) mmol/L Potassium 4.2 (3.4-5.1) mmol/L Chloride 105 (98-107) mmol/L Carbon Dioxide 26 (22-32) mmol/L BUN 13 (7-17) mg/dL Creatinine 0.81 (0.52-1.04) mg/dL Estimated GFR > 60 (>60) mL/min BUN/Creatinine Ratio 16.0 (6-22) Glucose 86 (70-99) mg/dL Calcium 9.5 (8.4-10.2) mg/dL Magnesium 1.9 (1.6-2.3) mg/dL Total Bilirubin 0.8 (0.2-1.3) mg/dL AST 36 (14-36) IU/L ALT 23 (<35) IU/L Alkaline Phosphatase 75 (38-126) U/L Total Creatine Kinase 197 H (30-135) U/L Troponin I < 0.012 (0.01-0.034) ng/mL NT-Pro-B Natriuret Pep 132 H (<125) pg/mL Total Protein 8.0 (6.3-8.2) g/dL Albumin 4.7 (3.5-5.0) g/dL Globulin 3.3 (1.7-4.1) g/dL Albumin/Globulin Ratio 1.4 (1.0-2.8) Lipase 98 (23-300) U/L ECG Data Attestation: I personally reviewed and interpreted this ECG as follows: (Regular narrow complex tachycardia appears to have underlying atrial flutter rate is 147, no ischemic change) MDM Narrative Medical decision making narrative: Patient was advised of her abnormal heart rhythm and options for treatment. Offered cardioversion he immediately versus IV medications for rate control. Patient would prefer to try rate control medications. 5-year-old female presenting with new onset atrial fibrillation. Onset was less than 12 hours prior to being seen patient was felt to be a candidate for cardioversion although she had not been anticoagulated. Workup was reassuring without evidence of infection or pulmonary embolism, she did not respond to IV metoprolol and ultimately agreed with cardioversion. She was cardioverted uneventfully. Station was started on Eliquis and referred to primary care and Cardiology. Discharge Plan Departure Patient Disposition: Home Clinical Impression: Atrial fibrillation with RVR Atrial fibrillation Qualifiers: Atrial fibrillation type: paroxysmal Qualified Code(s): I48.0 - Paroxysmal atrial fibrillation Activity Restrictions/Additional Instructions: Today, we treated you for atrial fibrillation, an abnormal heart rhythm. We were able to restore normal sinus rhythm, it is not clear and it is often times not clear what caused you to go into atrial fibrillation. I have sent a prescription for Eliquis which is a medication to prevent blood clotting to protect you from stroke. You need to be on this for 1 month at least. While you are taking this medication, you should not take aspirin ibuprofen or naproxen, Tylenol is okay to use for minor aches and pains. If you hit your head if you have uncontrolled bleeding vomiting blood or black stool you need to be seen in the emergency department. Make an appointment to follow up with Cardiology. Follow up with your primary care provider also. You can continue your previous home medications. We gave you a sedating medication for the cardioversion. You should not drive or drink alcohol for 8 hours after receiving this medication. If you develop recurrent atrial fibrillation fainting, chest pain or other acute symptoms please return to the emergency department. Prescriptions: New Eliquis 5 mg tablet 5 mg PO BID Qty: 60 0RF No Action phentermine 30 mg capsule 30 mg PO DAILY Rx Instructions: must administer 2 hours after breakfast meloxicam 7.5 mg tablet 7.5 mg PO DAILY Qty: 30 2RF levothyroxine 137 mcg tablet 137 mcg PO DAILY Qty: 90 3RF estradiol [Zoila] 0.025 mg/24 hr patch semiweekly See Rx Instructions .ROUTE .COMPLEX Qty: 8 4RF Dose Instruction: Apply 1 patch transdermally twice a week for 3 days alternating with 1 patch for 4 days each week Rx Instructions: Apply 1 transdermal patch twice a week. Alternate duration of patch for 3 days, then 4 days to cover the whole week. Referrals: Jose Marrero MD [Physician, Cardiology] Clinical Impression: Atrial fibrillation with RVR Ellen Webb MD [Primary Care Provider, Family Practice] Stand Alone Forms: Patient Portal/API
[2024-11-11] MEDS: METOPROLOL TARTRATE 5 MG/5 ML INJ IV ×3 (11:39→12:38)
[2024-11-11] MEDS: ASPIRIN 81 MG CHEW TAB 324 MG PO (11:39)
[2024-11-11 11:40] LABS: Add Manual Diff / Slide Review NO; Hematocrit 40.9 % (36-46); Hemoglobin 13.7 g/dL (12.0-16.0); Lymphocytes Absolute Auto 1400 /uL (1100-4500); Mean Corpuscular HGB Conc 33.6 % (30-36); Mean Corpuscular Hemoglobin 31.0 PG (26-34); Mean Corpuscular Volume 92.4 fL (80-100); Platelet Count 256 X10^3/uL (150-400)
[2024-11-11 11:49] LABS: INR 0.9 (0.9-1.3); Prothrombin Time 10.1 SECONDS (9.4-12.5)
[2024-11-11 11:52] LABS: PTT Partial Thromboplastin Tim 29 SECONDS (25.1-36.5)
[2024-11-11 11:54] LABS: Alanine Aminotransferase 23 IU/L (<35); Albumin 4.7 g/dL (3.5-5.0); Albumin Globulin Ratio 1.4 (1.0-2.8); Alkaline Phosphatase 75 U/L (38-126); Blood Urea Nitrogen 13 mg/dL (7-17); Calcium 9.5 mg/dL (8.4-10.2); Carbon Dioxide 26 mmol/L (22-32); Chloride 105 mmol/L (98-107); Creatine Kinase 197 U/L (30-135); Estimated Glomerular Filt Rate > 60 mL/min (>60); Globulin 3.3 g/dL (1.7-4.1); Glucose 86 mg/dL (70-99); HEMOLYSIS < 15 (0-50); Lipase 98 U/L (23-300); Magnesium 1.9 mg/dL (1.6-2.3); Potassium 4.2 mmol/L (3.4-5.1); Sodium 139 mmol/L (137-145); Total Protein 8.0 g/dL (6.3-8.2)
[2024-11-11 12:05] LABS: NT-proBNP (BNP-Adult 18+) 132 pg/mL (<125); Troponin I < 0.012 ng/mL (0.01-0.034)
[2024-11-11] MEDS: ONDANSETRON 4 MG/2 ML INJ IV (14:19)
[2024-11-11] MEDS: ETOMIDATE 2 MG/ML 10 ML VIAL 7.6 MG IV (14:20)
--- NOTE | 2024-11-11 14:29 | EKG_ITS ---
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
[2024-11-11] MEDS: APIXABAN 5 MG TABLET PO (15:05)
== END 2024-11-11 15:15 | disposition home or self-care (01) ==
PROVIDERS: Emergency Provider Emergency Medicine; PCP Family Medicine
DX: I48.0 Paroxysmal atrial fibrillation (principal)
CPT/HCPCS: 36415; 71045; 80053; 82550; 83690; 83735; 83880; 84484; 85025; 85379; 85610; 85730; 92960; 93005; 96374; 96375; 96376; 99152; 99285; J2405

== ENCOUNTER → 2024-11-15 14:11 | Outpatient (CLI) | payer OTHER, SELFPAY ==
[2024-11-15 17:17] LABS: Thyroid Stimulating Hormone 2.34 uIU/mL (0.47-4.68)
== END ==
PROVIDERS: PCP Family Medicine; Referring Provider Family Medicine; Visit Provider Family Medicine
DX: E03.9 Hypothyroidism, unspecified (principal)
CPT/HCPCS: 36415; 84443

== ENCOUNTER → 2024-12-02 06:48 | Outpatient (CLI) | payer OTHER, SELFPAY | LOC: CAR 06:49 | PROVIDERS: PCP Family Medicine; Referring Provider Family Medicine; Visit Provider Family Medicine | DX: I48.91 Unspecified atrial fibrillation (principal); I48.92 Unspecified atrial flutter | CPT/HCPCS: 93246 ==

== ENCOUNTER → 2024-12-02 12:46 | Outpatient (CLI) | payer OTHER, SELFPAY ==
--- NOTE | 2024-12-02 12:47 | DI.ECHO.S_ITS ---
[facility] : : [address] : : [place] : : [id number] : : Phone: [phone] Echocardiogram Report + + :Name: HANNA ALVAREZ Study Date: 12/02/2024 Height: 66 in : :[facility] ReadingLocation: Weight: 165 lb : : Gender: Other BSA: 1.8 m2 : :: 1965 Age: 59 yrs BP: 115/81 mmHg: :Reason For Study: ATRIAL FIBRILLATION : :Ordering Physician: JEWELS, : :DAKOTAH Performed By: Fabio Hutson : :Referring: DAKOTAH DONIS : + + Interpretation Summary Normal left ventricle size with ejection fraction 55-60%. Both atria are normal in size. No valvular abnormality. Procedure: A two-dimensional transthoracic echocardiogram with color flow and Doppler was performed. The study quality was technically good. There is no prior echocardiogram noted for this patient. The patient was in normal sinus rhythm during the exam. Left Ventricle: The left ventricle is normal in size. There is normal left ventricular wall thickness. There is no ventricular septal defect visualized. A false chord is noted (normal variant). The ejection fraction is estimated to be 55-60%. There are no focal wall motion abnormalities. Diastolic parameters suggest probable normal left ventricular diastolic function and normal filling pressures. Right Ventricle: The right ventricle is normal in size and function. Atria: Both atria are normal in size. There is no Doppler evidence for an interatrial shunt. Mitral Valve: The mitral valve leaflets appear normal. There is no evidence of stenosis, fluttering, or prolapse. There is trace mitral regurgitation. Aortic Valve: The aortic valve is trileaflet. The aortic valve opens well. No aortic regurgitation is present. Tricuspid Valve: The tricuspid valve leaflets are thin and pliable. There is a trace or physiologic amount of tricuspid regurgitation. Pulmonic Valve: The pulmonic valve leaflets are thin and pliable; valve motion is normal. There is trace pulmonic regurgitation. Great Vessels: The aortic root is normal size. The dimensions of the ascending aorta are normal. The pulmonary artery is normal size. The IVC is dilated (diameter is greater than 2.1 cm) yet it collapses greater than 50% with a sniff. This suggests a right atrial pressure of 8 mm Hg. Pericardium/ Pleura There is no pericardial effusion. MMode/2D Measurements & Calculations LVIDd: 4.8 cm LVOT diam: 1.9 cm LVIDs: 3.1 cm Ao root diam: 3.1 cm FS: 34.4 % asc Aorta Diam: 3.4 cm EPSS: 0.57 cm IVSd: 0.92 cm LVPWd: 0.89 cm LV aquino. diameter/BSA (cm/m^2): 2.6 LV sys. diameter/BSA (cm/m^2): 1.7 LA A2 area: 17.4 cm2 RA long axis: 4.8 cm LA A4 area: 20.4 cm2 RA area: 16.7 cm2 LA length (vol): 5.1 cm RA vol: 49.3 ml LA vol: 59.0 ml RA : 26.8 ml/m2 LA vol index: 32.0 ml/m2 IVC diam: 2.5 cm RVD1 (basal): 4.0 cm RVD2 (mid): 2.3 cm TAPSE: 2.7 cm Doppler Measurements & Calculations Ao V2 max: 133.1 cm/sec LVOT Max Sheldon: 90.1 cm/sec Ao V2 mean: 97.3 cm/sec LV V1 max P.2 mmHg Ao max P.1 mmHg LV V1 VTI: 20.6 cm Ao mean P.1 mmHg SETH(I,D): 1.9 cm2 Ao V2 VTI: 30.0 cm SETH(V,D): 1.9 cm2 sev ratio: 0.69 SETH indexed to BSA (cm^2/m^2): 1.1 MV E max sheldon: 74.7 cm/sec PA V2 max: 74.1 cm/sec MV A max sheldon: 64.0 cm/sec PA V2 mean: 55.1 cm/sec MV E/A: 1.2 PA mean P.3 mmHg Med Peak E' Sheldon: 9.1 cm/sec PA pr(Accel): 20.8 mmHg E/E' med: 8.2 Lat Peak E' Sheldon: 9.8 cm/sec E/E' lat: 7.7 E/e' average: 7.9 MV dec time: 0.13 sec SV(LVOT): 58.3 ml Electronically signed by: Roslyn Mai on Reading Physician:12/02/2024 03:56 PM
== END ==
PROVIDERS: PCP Family Medicine; Referring Provider Family Medicine; Visit Provider Family Medicine
DX: I48.0 Paroxysmal atrial fibrillation (principal)
CPT/HCPCS: 93246; 93306

== ENCOUNTER 2025-01-06 08:59 | Emergency (ER) | payer OTHER, SELFPAY ==
[2025-01-06 09:01] VITALS: BP 141/77; PULSE 84; RESP 20; TEMP 36.2; O2SAT 100; BMI 27.4
--- NOTE | 2025-01-06 09:11 | ED.ARRPALP ---
HPI - Arrhythmia/Palpitations General Chief Complaint: Arrhythmia/Palpitations Stated Complaint: Elevated heart rate Time Seen by Provider: 01/06/25 09:06 Source: patient Mode of arrival: Ambulatory History of Present Illness HPI narrative: Patient is a 59-year-old female with history of atrial fibrillation, she was seen evaluated here 11/11/2024 found to be in AFib with RVR heart rate in the 150s she was easily cardioverted and discharged home. She has since had an echocardiogram been seen by Cardiology and worn a Holter monitor. Unfortunately no events were recorded. She is not on anticoagulation any longer she is only taking aspirin. This morning she reports that she had a heart rate of 150 for about an hour and a half. Her heart rate was 150 according to her watch she felt it flip-flopping she feels a little dizzy and lightheaded. Patient reports that she did drink more alcohol than normal this weekend wondering if there is a correlation. She reports that when she initially had an event back in October she cut alcohol way back but this weekend with family in town had more alcohol than normal. Related Data Home Medications ?Medication ?Instructions ?Recorded ?Confirmed phentermine 30 mg capsule 30 mg PO DAILY 04/28/22 11/15/24 Previous Rx's ?Medication ?Instructions ?Recorded meloxicam 7.5 mg tablet 7.5 mg PO DAILY #30 tabs 10/31/23 levothyroxine 137 mcg tablet 137 mcg PO DAILY #90 tabs 03/11/24 apixaban 5 mg tablet (Eliquis) 5 mg PO BID #60 tabs 11/11/24 estradiol 0.025 mg/24 hr See Rx Instructions .Route 12/02/24 semiweekly transdermal patch .COMPLEX #8 patches (Zoila) Allergies Allergy/AdvReac Type Severity Reaction Status Date / Time No Known Drug Allergies Allergy Verified 01/06/25 09:01 Patient History Medical History Foot pain (~2016) Hypothyroidism (~1995) Surgical History Anesthesia Ovarian cyst (~1992) Family History Father Cancer Mother Hypertension Heart disease Brother Diabetes mellitus Social History marital status: household members: spouse and children pets and animals: Yes education level: college occupational status: employed leisure activities: reading other: hiking seatbelt use: always water heater temp set < 120 deg: Yes working smoke detector in home: Yes fire extinguisher in home: Yes carbon monox detector in home: Yes Smoking Status: Never smoker alcohol intake: current (rare) substance use type: does not use during the past year weight has: increased > 10 lbs well-balanced diet: about half the time daily servings fruits/ve-4 caffeine: Yes eating out: 1-3 times/week frequency: 5-6 times per week duration: 30-45 minutes/day Smoking Status: Never smoker Exam Initial Vital Signs Initial Vital Signs: Vital Signs Temperature 97.1 F L 01/06/25 09:01 Pulse Rate 84 01/06/25 09:01 Respiratory Rate 20 01/06/25 09:01 Blood Pressure 141/77 H 01/06/25 09:01 Pulse Oximetry 100 01/06/25 09:01 Oxygen Delivery Method Room Air 01/06/25 09:01 GENERAL: Alert pleasant well-appearing 59-year-old and in no acute distress. HEENT: Head atraumatic,EOMI, pupils reactive, face symmetric, moist mucous membranes CARDIOVASCULAR: Regular rate and rhythm without murmurs, rubs or gallops. RESPIRATORY: Breath sounds equal bilaterally, no wheezes rales or rhonchi. ABDOMEN: Soft, nontender. Normoactive bowel sounds all 4 quadrants. No guarding or rebound. EXTREMITIES: Normal range of motion, no clubbing or edema. Neurovascularly intact NEUROLOGICAL: Alert and oriented x4.Normal gait and speech. Cranial nerves II through XII grossly intact. SKIN: Warm, dry, no laceration, no petechiae, no rashes or lesions. Course Orders Ordered: ED Orders 01/06/25 09:07 EKG-12 Lead Stat 01/06/25 09:17 Complete Blood Count AUTO DIFF Stat Comprehensive Metabolic Panel Stat Lipase Stat Magnesium Stat NT-proBNP (BNP-Adult 18+) Stat Troponin I Stat Vital Signs Vital signs: Vital Signs - 8 hr 01/06/25 09:01 01/06/25 09:35 Temperature 97.1 F L Pulse Rate 84 76 Respiratory Rate 20 18 Blood Pressure 141/77 H Pulse Oximetry 100 100 Oxygen Delivery Method Room Air MDM - Arrhythmia/Palpitations Lab Data 01/06/25 09:17 01/06/25 09:17 Labs: Lab Results 01/06/25 Range/Units 09:17 WBC 5.1 (4.5-11.0) X10^3/uL RBC 4.23 (4.0-5.2) X10^6/uL Hgb 13.3 (12.0-16.0) g/dL Hct 39.1 (36-46) % MCV 92.5 (80-100) fL MCH 31.4 (26-34) PG MCHC 34.0 (30-36) % RDW 13.5 (11.6-14.8) % Plt Count 288 (150-400) X10^3/uL Neut % (Auto) 64.3 (50-75) % Lymph % (Auto) 25.2 (25-40) % [place] % (Auto) 8.6 (3-14) % Eos % (Auto) 0.8 L (2-4) % Baso % (Auto) 1.1 (0-2) % Neut # (Auto) 3300 (1125-4036) /uL Lymph # (Auto) 1300 (0377-5995) /uL [place] # (Auto) 400 (0-900) /uL Eos # (Auto) 0 (0-450) /uL Baso # (Auto) 100 (0-100) /uL Sodium 140 (137-145) mmol/L Potassium 4.4 (3.4-5.1) mmol/L Chloride 106 (98-107) mmol/L Carbon Dioxide 27 (22-32) mmol/L BUN 14 (7-17) mg/dL Creatinine 0.74 (0.52-1.04) mg/dL Estimated GFR > 60 (>60) mL/min BUN/Creatinine Ratio 18.9 (6-22) Glucose 101 H (70-99) mg/dL Calcium 9.3 (8.4-10.2) mg/dL Magnesium 1.8 (1.6-2.3) mg/dL Total Bilirubin 0.7 (0.2-1.3) mg/dL AST 48 H (14-36) IU/L ALT 57 H (<35) IU/L Alkaline Phosphatase 94 (38-126) U/L Troponin I < 0.012 (0.01-0.034) ng/mL NT-Pro-B Natriuret Pep 758 H (<125) pg/mL Total Protein 7.7 (6.3-8.2) g/dL Albumin 4.6 (3.5-5.0) g/dL Globulin 3.1 (1.7-4.1) g/dL Albumin/Globulin Ratio 1.5 (1.0-2.8) Lipase 90 (23-300) U/L ECG Data Attestation: I personally reviewed and interpreted this ECG as follows: Prior ECG tracings: available for review Interpretation: Normal sinus rhythm rate 74 OK interval 140 QRS [address] changes no T-wave inversions MDM Narrative Medical decision making narrative: Patient is 59-year-old female presenting today with palpitations. She had a recent episode of AFib with RVR heart rate in the 150s was cardioverted out of it. sHe has since had an echocardiogram Holter monitor and evaluation by Cardiology. Today feeling palpitations. Heart rate is now in the 80s with a sinus rhythm on EKGs. Blood work has been reviewed CBC within normal limits CMP no abnormalities, no ALIZA glucose 101 Bilirubin liver enzymes lipase within normal limit Troponin negative Chest x-ray reviewed: No acute cardiopulmonary process EKGs reviewed sinus rhythm without ischemia At this time recommend patient follow up with Cardiology no need for cardioversion today continue medication as prescribed Discharge Plan Departure Patient Disposition: Home Clinical Impression: Palpitations Instructions: DI for Atrial Fibrillation Activity Restrictions/Additional Instructions: *You have been diagnosed with palpitations *What to do: Has a time 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 *Continue to take medications as directed Continue aspirin *Follow up with your primary care provider in 2-3 days or call [phone] *Return to ER if you should have increasing palpitations dizziness lightheadedness passing out, heart rate ongoing for more than 2 out or any new, worsening or concerning symptoms Prescriptions: No Action phentermine 30 mg capsule 30 mg PO DAILY Rx Instructions: must administer 2 hours after breakfast meloxicam 7.5 mg tablet 7.5 mg PO DAILY Qty: 30 2RF levothyroxine 137 mcg tablet 137 mcg PO DAILY Qty: 90 3RF estradiol [Zoial] 0.025 mg/24 hr patch semiweekly See Rx Instructions .ROUTE .COMPLEX Qty: 8 4RF Dose Instruction: Apply 1 patch transdermally twice a week for 3 days alternating with 1 patch for 4 days each week Rx Instructions: Apply 1 transdermal patch twice a week. Alternate duration of patch for 3 days, then 4 days to cover the whole week. Eliquis 5 mg tablet 5 mg PO BID Qty: 60 0RF Referrals: Ellen Webb MD [Primary Care Provider, Family Practice] Stand Alone Forms: Patient Portal/API
[2025-01-06 09:28] LABS: Add Manual Diff / Slide Review NO; Hematocrit 39.1 % (36-46); Hemoglobin 13.3 g/dL (12.0-16.0); Lymphocytes Absolute Auto 1300 /uL (1100-4500); Mean Corpuscular HGB Conc 34.0 % (30-36); Mean Corpuscular Hemoglobin 31.4 PG (26-34); Mean Corpuscular Volume 92.5 fL (80-100); Platelet Count 288 X10^3/uL (150-400)
--- NOTE | 2025-01-06 09:34 | EKG_ITS ---
[address] [address] Test Date: 2025-01-06 Pat Name: Senia Bajwa Department: [facility] Room: Gender: Female Healthcare Prof: VERNA : 1965 Requested By: Order Number: [id number] Reading MD: Marco Lei Measurements Intervals [place] Rate: 74 P: 45 [place]: 140 QRS: 43 QRSD: 78 T: 16 QT: 384 QTc: 426 Interpretive Statements Normal sinus rhythm Electronically Signed On 01-07-2025 18:09:24 PST by Marco Lei
[2025-01-06 09:35] VITALS: PULSE 76; RESP 18; O2SAT 100
[2025-01-06 09:37] LABS: Alanine Aminotransferase 57 IU/L (<35); Albumin 4.6 g/dL (3.5-5.0); Albumin Globulin Ratio 1.5 (1.0-2.8); Alkaline Phosphatase 94 U/L (38-126); Blood Urea Nitrogen 14 mg/dL (7-17); Calcium 9.3 mg/dL (8.4-10.2); Carbon Dioxide 27 mmol/L (22-32); Chloride 106 mmol/L (98-107); Estimated Glomerular Filt Rate > 60 mL/min (>60); Globulin 3.1 g/dL (1.7-4.1); Glucose 101 mg/dL (70-99); HEMOLYSIS < 15 (0-50); Lipase 90 U/L (23-300); Magnesium 1.8 mg/dL (1.6-2.3); Potassium 4.4 mmol/L (3.4-5.1); Sodium 140 mmol/L (137-145); Total Protein 7.7 g/dL (6.3-8.2)
[2025-01-06 09:49] LABS: NT-proBNP (BNP-Adult 18+) 758 pg/mL (<125); Troponin I < 0.012 ng/mL (0.01-0.034)
[2025-01-06 10:00] VITALS: PULSE 81; RESP 21; O2SAT 100
[2025-01-06 10:01] VITALS: BP 115/82; PULSE 71; RESP 16; O2SAT 100
== END 2025-01-06 10:12 | disposition home or self-care (01) ==
PROVIDERS: Emergency Provider Emergency Medicine; PCP Family Medicine
DX: R00.2 Palpitations (principal); R42 Dizziness and giddiness; Z86.79 Personal history of other diseases of the circulatory system
CPT/HCPCS: 36415; 80053; 83690; 83735; 83880; 84484; 85025; 93005; 99283; 99284